=== PATIENT | male | born 1960 | race Caucasian/White ===

== ENCOUNTER 2023-05-08 14:12 | Outpatient (OUT) | payer BC, SELFPAY ==
[2023-05-08 14:46] LABS: Basophils Percent Auto 0.4 % (0.2-2.0); Eosinophils Absolute Auto 0.3 10^3/uL (0.0-0.7); Hematocrit 42.3 % (42.0-54.0); Hemoglobin 13.4 g/dL (14.0-18.0); Immature Granulocytes Abs Auto 0.03 10^3/uL (0.00-0.03); Immature Granulocytes Pct Auto 0.3 % (0.0-0.5); Lymphocytes Absolute Auto 2.1 10^3/uL (1.2-3.8); Lymphocytes Percent Auto 23.3 % (20.5-60.0); Mean Corpuscular HGB Conc 31.7 g/dL (29.9-35.2); Mean Corpuscular Hemoglobin 28.8 pg (25.9-34.0); Mean Corpuscular Volume 90.8 fL (80.0-94.0); Mean Platelet Volume 9.9 fL (9.5-13.5); Monocytes Percent Auto 10.7 % (1.7-12.0); Neutrophils Absolute Auto 5.7 10^3/uL (1.4-6.5); Neutrophils Percent Auto 62.3 % (43.0-75.0); Platelet Count 306 10^3/uL (150-450); Red Blood Count 4.66 10^6/uL (4.70-6.10); Red Cell Distribution Width 12.8 % (11.0-15.0); White Blood Count 9.2 10^3/uL (4.0-11.0)
[2023-05-08 15:41] LABS: Alanine Aminotransferase 59 U/L (16-63); Albumin Globulin Ratio 1.1; Albumin Level 3.5 g/dL (3.4-5.0); Alkaline Phosphatase 98 U/L (46-116); Anion Gap 12.5; Aspartate Amino Transferase 30 U/L (15-37); BUN Creatinine Ratio 16.7; Bilirubin Total 0.4 mg/dL (0.2-1.0); Calcium 9.2 mg/dL (8.5-10.1); Carbon Dioxide 28.8 mmol/L (21.0-32.0); Chloride 102 mmol/L (98-107); Estimated GFR (African America >60 (>=60); Estimated GFR (Non-African Ame >60 (>=60); Globulin 3.3 g/dL; Glucose 256 mg/dL (74-106); Potassium 4.3 mmol/L (3.5-5.1); Sodium 139 mmol/L (136-145); Total Protein 6.8 g/dL (6.4-8.2)
== END 2023-05-08 14:13 | disposition home or self-care (01) ==
PROVIDERS: PCP Family Medicine; Visit Provider Nurse Practitioner
DX: R06.09 Other forms of dyspnea (principal); R60.0 Localized edema
CPT/HCPCS: 36415; 80053; 83880; 85025

== ENCOUNTER 2023-05-15 08:32 | Outpatient (OUT) | payer BC, SELFPAY ==
--- OUTSIDE RECORDS SUMMARY | 2023-05-15 08:37 | XMS_ITS | CCD ---
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 Jeanine Burkett Primary Care Dr. Jeanine Arizmendi Referring DANUTA Grissom Admitting Unava Danuta Shaw Consulting Unavaila ble AMIR, Hasan Admitting Unavailable Yue GOODWINan Attending Unavailable Danuta Damon Referring Unavaila MD Danuta Moreno Consulting Unava ilDanuta Viveros Consulting Unavaila ble Gudimella, Lillie Attending Unavailable Gudimeljoyce, Lillie Attending Unavailable Gusummer, Lillie Attending Unavailable Herve, Lillie Attending Unavailable Herve, Lillie Attending Unavailable ELJOSEHAWChris EHAB Referring Unavailable ELJOSEHAWChris EHAB Admitting Unavailable ELTAHAWYSINCEREAB Attending Unavailable Vamsidimella, Lillie Admitting Unavailable Gudimella, Lillie Attending Unavailable ELTAHAWSINCERE PerezAB Admitting Unavailable AGAPITOHAWSINCERE PerezAB Attending Unavailable RADHA JETERALDOON Admitting Unavailable RADHA JETERALDOON Attending Unavailable BLACK MARTINEZ Admitting Unavailable BLACK MARTINEZ Attending Unavailable Danuta Damon Attending Unavaila Danuta Moreno Admitting Unavaila ble NONE, XXXX Referring Unavailable Danuta Damon Attending Unavaila Danuta Moreno Admitting Unavaila ble NONE, XXXX Referring Unavailable Danuta Damon Admitting Unavaila ble Danuta Damon Attending Unavaila ble Danuta Damon Referring Unavaila ble ELTAHAWY, EHAB Admitting Unavailable ELTAHAWY, EHAB Attending Unavailable EL[place]HAWY, EHAB Attending Unavailable ELTAHAWY, EHAB Attending Unavailable MAITEJOSE ALFREDO Attending Unavailable ELTAHAWY, EHAB Referring Unavailable Allergies Allergy Classification Reported Allergen(s) Allergy Type Date of Onset Reaction(s) Facility (1 source) 64461,00; Translations: [70975,00] Propensity to adverse reactions (disorder) 9 [facility] Repository Medications Current Medications Medication Drug Class(es) Dates Sig (Normalized) Sig (Original) 0.25 MG, 0.5 MG Dose 3 ML semaglutide 0.68 MG/ML Pen Injector [Ozempic] (5 sources) Start: 10-03-2022 inject 0.5 mg by subcutaneous injection every week Ozempic 2 mg/3 mL (0.25 mg or 0.5 mg dose) subcutaneous solution 0.5 mg, SubCutaneous, qWeek, # 4 EA, Refills(s) 2, Pharmacy: [facility], 173, cm, 07/22/22 15:45:00 EDT, Height/Length Dosing, 71.4, kg, 07/22/22 15:45:00 EDT, Weight Dosing Start Date: 10/03/22 Status: Ordered 3 ML semaglutide 1.34 MG/ML Pen Injector [Ozempic] (1 source) Start: 04-18-2023 inject 1 mg by subcutaneous injection every week Ozempic (1 mg dose) 4 mg/3 mL subcutaneous solution 1 mg, SubCutaneous, qWeek, # 4 EA, Refills(s) 0, Pharmacy: [facility], 173, cm, 04/18/23 11:00:00 EST, Height/Length Dosing, 76.2, kg, 04/18/23 11:00:00 EST, Weight Dosing Start Date: 04/18/23 Status: Ordered aspirin 81 mg chewable tablet (13 sources) Platelet Aggregation Inhibitor, Nonsteroidal Anti-inflammatory Drug Start: 09-09-2019 take 1 tablet by mouth once daily aspirin 81 mg Chew Tab 81 mg = 1 tab(s), Oral, Daily, # 90 tab(s), Refills(s) 3, Pharmacy: [facility], 172, cm, 09/09/19 15:03:00 EDT, Height/Length Measured, 72.6, kg, 09/09/19 15:03:00 EDT, Weight Measured Start Date: 09/09/19 Status: Ordered atorvastatin 80 mg oral tablet (13 sources) HMG-CoA Reductase Inhibitor Start: 05-30-2022 take 1 tablet by mouth once daily atorvastatin 80 mg Tab 80 mg = 1 tab(s), Oral, Daily, # 30 tab(s), Refills(s) 0 Start Date: 05/30/22 Status: Ordered Start: 02-02-2018 take 80 mg by mouth once daily atorvastatin 80 mg, Oral, Daily, Refills(s) 0, High cholesterol Start Date: 02/02/18 Status: Ordered busPIRone hydrochloride 10 mg oral tablet (1 source) Start: 04-18-2023 take 1 tablet by mouth twice daily busPIRone 10 mg Tab 10 mg = 1 tab(s), Oral, BID, # 90 tab(s), Refills(s) 0, Pharmacy: [facility], 173, cm, 04/18/23 11:00:00 EST, Height/Length Dosing, 76.2, kg, 04/18/23 11:00:00 EST, Weight Dosing Start Date: 04/18/23 Status: Ordered clopidogrel 75 mg oral tablet (13 sources) [id number] Platelet Inhibitor Start: 05-30-2022 take 1 tablet by mouth once daily clopidogrel 75 mg Tab 75 mg = 1 tab(s), Oral, Daily, # 30 tab(s), Refills(s) 0 Start Date: 05/30/22 Status: Ordered Start: 02-02-2018 take 75 mg by mouth once daily Plavix 75 mg, Oral, Daily, Refills(s) 0, Blood Thinner Start Date: 02/02/18 Status: Ordered ezetimibe 10 mg oral tablet (10 sources) Dietary Cholesterol Absorption Inhibitor Start: 05-30-2022 take 1 tablet by mouth once daily ezetimibe 10 mg Tab 10 mg = 1 tab(s), Oral, Daily, # 30 tab(s), Refills(s) 0 Start Date: 05/30/22 Status: Ordered handicap placard (13 sources) Start: 03-30-[address] handicap placard, See Instructions, 1 EA, 0, Use as directed duration 5 years, Supply Start Date: 03/30/19 Status: Ordered lisinopril 2.5 mg oral tablet (13 sources) Angiotensin Converting Enzyme Inhibitor Start: 10-27-2022 take 1 tablet by mouth once daily lisinopril 2.5 mg Tab 2.5 mg, Oral, Daily, # 90 tab(s), Refills(s) 3, Pharmacy: [facility], 173, cm, 07/22/22 15:45:00 EDT, Height/Length Dosing, 71.4, kg, 07/22/22 15:45:00 EDT, Weight Dosing Start Date: 10/27/22 Status: Ordered Start: 11-05-2021 take 1 tablet by avinash th once daily lisinopril 2.5 mg Tab 2.5 mg, Oral, Daily, # 90 tab(s), Refills(s) 3, Pharmacy: [facility], 172, cm, 09/07/21 16:47:00 EDT, Height/Length Dosing, 68, kg, 09/07/21 16:47:00 EDT, Weight Dosing Start Date: 11/05/21 Status: Ordered Start: 10-29-2020 take 1 tablet by avinash th once daily lisinopril 2.5 mg Tab 2.5 mg, Oral, Daily, # 90 tab(s), Refills(s) 3, Pharmacy: [facility], 172, cm, 09/23/20 15:33:00 EDT, Height/Length Dosing, 72, kg, 09/23/20 15:33:00 EDT, Weight Dosing Start Date: 10/29/20 Status: Ordered metFORMIN hydrochloride 1000 mg oral tablet (1 source) Biguanide Start: 09-23-2020 take 1 tablet by mouth twice daily metformin 1000 mg Tab 1,000 mg, Oral, BID, # 180 tab(s), Refills(s) 3, Pharmacy: [facility], 172, cm, 09/23/20 15:33:00 EDT, Height/Length Dosing, 72, kg, 09/23/20 15:33:00 EDT, Weight Dosing Start Date: 09/23/20 Status: Ordered 24 hr metFORMIN hydrochloride 1000 mg / SITagliptin 50 mg extended release oral tablet (13 sources) Biguanide, Dipeptidyl Peptidase 4 Inhibitor Start: 01-17-2023 take 1 tablet by mouth twice daily Janumet XR 50 mg-1000 mg oral tablet, extended release 1 tab(s), Oral, BID, 180 tab(s), Refill(s) 0, [facility], 173, cm, 07/22/22 15:45:00 EDT, Height/Length Dosing, 71.4, kg, 07/22/22 15:45:00 EDT, Weight Dosing Start Date: 01/17/23 Status: Ordered Start: 05-26-2022 take 1 tablet by [facility] twice daily Janumet XR 50 mg-1000 mg oral tablet, extended release 1 tab(s), Oral, BID, 180 tab(s), Refill(s) 3, [facility], 172, cm, 05/26/22 13:47:00 EST, Height/Length Dosing, 71.9, kg, 05/26/22 13:47:00 EST, Weight Dosing Start Date: 05/26/22 Status: Ordered Start: 11-18-2021 take 1 tablet by [facility] twice daily Janumet XR 50 mg-1000 mg oral tablet, extended release 1 tab(s), Oral, BID, 60 tab(s), Refill(s) 7, [facility], 172, cm, 09/07/21 16:47:00 EDT, Height/Length Dosing, 68, kg, 09/07/21 16:47:00 EDT, Weight Dosing Start Date: 11/18/21 Status: Ordered Start: 04-19-2021 take 1 tablet by avinash twice daily Janumet 50 mg/1000 mg oral tablet 1 tab(s), Oral, BID, 60 tab(s), Refill(s) 3, [facility], 172, cm, 04/19/21 17:24:00 EST, Height/Length Dosing, 68, kg, 04/19/21 17:24:00 EST, Weight Dosing Start Date: 04/19/21 Status: Ordered 24 hr metoprolol succinate 100 mg extended release oral tablet (13 sources) beta-Adrenergic Emili Start: 02-02-2018 take 1 tablet by mouth once daily metoprolol 100 mg ER Tab 100 mg = 1 tab(s), Oral, Daily, Refills(s) 0, High blood pressure Start Date: 02/02/18 Status: Ordered omeprazole 20 mg delayed release oral capsule (11 sources) Proton Pump Inhibitor Start: 02-16-2023 take 1 capsule by mouth once daily omeprazole 20 mg Cap-DR 20 mg = 1 cap(s), Oral, Daily, # 30 cap(s), Refills(s) 3, Pharmacy: [facility], 173, cm, 01/19/23 15:47:00 EDT, Height/Length Dosing, 72.3, kg, 01/19/23 15:47:00 EDT, Weight Dosing Start Date: 02/16/23 Status: Ordered Start: 09-27-2022 take 1 capsule by [facility] once daily omeprazole 20 mg Cap-DR 20 mg = 1 cap(s), Oral, Daily, # 30 cap(s), Refills(s) 3, Pharmacy: [facility], 173, cm, 07/22/22 15:45:00 EDT, Height/Length Dosing, 71.4, kg, 07/22/22 15:45:00 EDT, Weight Dosing Start Date: 09/27/22 Status: Ordered Start: 05-26-2022 take 1 capsule by [facility] once daily omeprazole 20 mg Cap-DR 20 mg = 1 cap(s), Oral, Daily, # 30 cap(s), Refills(s) 3, Pharmacy: [facility], 172, cm, 05/26/22 13:47:00 EST, Height/Length Dosing, 71.9, kg, 05/26/22 13:47:00 EST, Weight Dosing Start Date: 05/26/22 Status: Ordered polyethylene glycol 3350 188816 mg / potassium chloride 1480 mg / sodium bicarbonate 5720 mg / sodium chloride 84606 mg powder for oral solution (1 source) Osmotic Laxative Start: 01-21-2022 NuLYTELY Blair oral powder for reconstitution See Instructions, 1 EA, Refill(s) 0, Prior to colonoscopy., [facility], 172, cm, 01/21/22 12:49:00 EDT, Height/Length Dosing, 70.9, kg, 01/21/22 12:49:00 EDT, Weight Dosing Start Date: 01/21/22 Status: Ordered 0.25 mg, 0.5 mg dose 1.5 ml semaglutide 1.34 mg/ml pen injector (7 sources) Start: 05-26-2022 inject 0.25 mg by subcutaneous injection every week Ozempic 2 mg/1.5 mL (0.25 mg or 0.5 mg dose) subcutaneous solution 0.25 mg, SubCutaneous, qWeek, 12 EA, Refill(s) 3, [facility], 172, cm, 05/26/22 13:47:00 EST, Height/Length Dosing, 71.9, kg, 05/26/22 13:47:00 EST, Weight Dosing Start Date: 05/26/22 Status: Ordered Start: 10-21-2021 inject 0.25 mg by constantino bcutaneous injection every week Ozempic 2 mg/1.5 mL (0.25 mg or 0.5 mg dose) subcutaneous solution 0.25 mg, SubCutaneous, qWeek, 4 EA, Refill(s) 3, [facility], 172, cm, 09/07/21 16:47:00 EDT, Height/Length Dosing, 68, kg, 09/07/21 16:47:00 EDT, Weight Dosing Start Date: 10/21/21 Status: Ordered Start: 09-23-2020 take 1 tablet by mouth once da ramona Gutierrezs 14 mg oral tablet 14 mg = 1 tab(s), Oral, Daily, # 90 tab(s), Refills(s) 3, Pharmacy: [facility], 172, cm, 09/23/20 15:33:00 EDT, Height/Length Dosing, 72, kg, 09/23/20 15:33:00 EDT, Weight Dosing Start Date: 09/23/20 Status: Ordered Problems Active Problems Problem Classification Problem Date Documented Date Episodic/Chronic Acute myocardial infarction (1 source) Non-ST elevation (NSTEMI) myocardial infarction; Translations: [I21.4] Onset: 05-30-2022 Chronic Coronary atherosclerosis and other heart disease (20 sources) Atherosclerotic heart disease of [place] coronary artery with unstable angina pectoris; Translations: [Coronary arteriosclerosis] Onset: 11-02-2016 03-13-2019 Chronic Coronary atherosclerosis and other heart disease (2 sources) Presence of coronary angioplasty implant and graft; Translations: [PRESENCE OF CORONARY ANGIOPLASTY IMPLANT AND GRAFT] Onset: 11-02-2016 Episodic Diabetes mellitus with complications (18 sources) Hyperglycemia due to type 2 diabetes mellitus; Translations: [Peripheral circulatory disorder due to type 2 diabetes mellitus] Onset: 07-22-2022 09-23-2020 Chronic Diabetes mellitus without complication (20 sources) Type 2 diabetes mellitus without complications; Translations: [Type 2 diabetes mellitus] Onset: 11-02-2016 03-13-2019 Chronic Disorders of lipid metabolism (20 sources) Hyperlipidemia, unspecified; Translations: [Hypercholesterolemia] Onset: 11-02-2016 03-13-2019 Chronic Esophageal disorders (10 sources) Gastroesophageal reflux disease 05-30-2022 Chronic Essential hypertension (20 sources) Essential (primary) hypertension; Translations: [Hypertensive disorder] Onset: 11-02-2016 Resolved: 12-25-2009 03-13-2019 Chronic Other aftercare (2 sources) 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; Translations: [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] Onset: 11-02-2016 Episodic Other aftercare (1 source) Long-term current use of oral hypoglycemic medication; Translations: [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 drugs] Onset: 08-25-2021 Episodic Other and unspecified benign neoplasm (13 sources) History of polyp of colon; Translations: [Personal history of colonic polyps] Onset: 01-21-2022 Episodic Other lower respiratory disease (2 sources) Other forms of dyspnea; Translations: [Other forms of dyspnea] Onset: 05-08-2023 Episodic Other nervous system disorders (1 source) Tremor; Translations: [Tremor, unspecified] Onset: 04-18-2023 Episodic Other non-traumatic joint disorders (1 source) Hip pain 03-13-2019 Episodic Other non-traumatic joint disorders (1 source) Pain of left shoulder joint; Translations: [Pain in left shoulder] Onset: 05-26-2022 Episodic Other non-traumatic joint disorders (11 sources) Shoulder pain 05-26-2022 Episodic Other nutritional; endocrine; and metabolic disorders (1 source) Overweight in adulthood with body mass index of 25 or more but less than 30; Translations: [Body mass index (BMI) 25.0-25.9, adult] Onset: 04-18-2023 Episodic Other nutritional; endocrine; and metabolic disorders (2 sources) Overweight; Translations: [Overweight] Onset: 04-18-2023 Episodic Other skin disorders (1 source) Cyst of skin 12-30-2019 Episodic Residual codes; unclassified (1 source) Family history of malignant neoplasm of digestive organ; Translations: [Family history of malignant neoplasm of digestive organs] Onset: 01-21-2022 Episodic Residual codes; unclassified (12 sources) Family history of cancer of colon 01-21-2022 Episodic Residual codes; unclassified (3 sources) Body mass index 20-24 - normal; Translations: [Body mass index (BMI) 24.0-24.9, adult] Onset: 05-26-2022 Episodic Residual codes; unclassified (2 sources) Localized edema; Translations: [Localized edema] Onset: 05-08-2023 Episodic Screening and history of mental health and substance abuse codes (1 source) H/O: Disorder; Translations: [Personal history of nicotine dependence] Onset: 04-18-2023 Episodic Substance-related disorders (16 sources) Nicotine dependence, cigarettes, uncomplicated; Translations: [Smoker] Onset: 11-02-2016 03-13-2019 Chronic Unclassified (2 sources) Unknown / UNK(Unknown) Onset: 11-02-2016 Unclassified (1 source) Sebaceous cyst of skin 06-02-2021 Unclassified (4 sources) Patient encounter status 07-22-2022 Unclassified (1 source) Finding of hand region 04-18-2023 Past or Other Problems Problem Classification Problem Date Documented Da te Episodic/Chronic Unclassified (20 sources) Body mass index 20-24 - normal 09-23-2020 Unclassified (13 sources) Without (attribute) Resolved: 03-13-2019 03-13-2019 Results Test Name Value Interpretation Reference Range Facility 37on 05-08-2023 37 Take lasix/furosemid e 1 tablet daily with potassium 1 tablet for the next 2-3 days to remove water and then stop. *Continue heart healthy diet and low sodium diet. *Monitor daily weights, fluid restriction 1.5-2Liters/day, lab work to check kidney/renal function and electrolytes today and again on Monday or next Monday *Call office for weight gain of 2 pounds in 1 day or 5 pounds in 1 week, increased leg swelling, shortness of breath or shortness of breath at night and having to sleep sitting up taller/more pillows than normal or in recliner. [facility] Office Visiton 05-08-2023 Follow-up visit [id number] TonnyBoby Inocencia 1960 M Date Provider Department Center 05/08/2023 JOSE ALFREDO [place] [facility] Family History Problem Relation Age of Onset Heart attack Father Family Status - Relation Status Age at Father Level of Service:[address] [place] OFFICE/OUTPATIENT ESTABLISHED MOD MDM 30 MIN Normal [facility] Family Medicine Office/Clini c Noteon 04-18-2023 Family Medicine Office/Clinic Note Chief Complaint chronic follow up HPI Staff Pt here for 3 month follow up. T2DM Meds: Janumet 50/1000mg Ozempic BG at home: none Aspirin, Statin: ASA 81mg Atorvastatin 80mg Microalbumin:DUE Labs: Hgb A1C %: 8.6 % High (11/29/22 16:30:00) Eye exam: Foot exam: DUE HTN BP range:none Meds:Lisinopril 2.5mg Compliant, no side effects Diet:no Exercise:no No chest pain, palpitations, sob, headache, peripheral edema, lightheadedness. No hypotensive episodes Health Maintenance: Colonoscopy:03/11/22 PSA:05/22/21 Last Labs:02/16/23 History of Present Illness TONNYBOBY is a 63 Years White Male presenting to clinic today for chronic f/u concerned about weight gain after quitting smoking tremors of left arm from fingers to elbow x1 month occurs on right, but worse on left upper extremity occurs while sitting still and with movement no fhx of tremors getting angry really fast and really bad recently stopped smoking just before Thanksgiving 23, 1 month stopped cold turkey after weaning down to 6-7 cigs daily eating hard candy instead of smoking wheezing has stopped and hardly coughing anymore Review of Systems PHQ Score Initial Depression Screen Score: 0 SCORE Negative except as above Physical Exam Vitals & Measurements HR: 82(Peripheral) BP: 110/72 SpO2: 98% HT: 68 in HT: 173 cm WT: 76.2 kg WT: 167.64 lb BMI: 25.46 Gen: No acute distress, sitting comfortably in chair Cardio: RRR, no murmur/rubs/gallops Resp: CTAB, no wheezing/rales/rhonchi Psych: Pleasant, normal mood, normal affect Neuro: CN II-XII intact, normal gait Diabetic Foot Exam Decreased Monofilament Sensation Foot: Left - Normal, Right - Normal Bunions/Foot Deformity: Left - Normal, Right - Normal Abnormal Pulse Foot: Left - Normal, Right - Normal Skin Lesions Foot: Left - Normal, Right - Normal Foot Exam Result: Normal foot exam Assessment/Plan 1. Type 2 diabetes mellitus with hyperglycemia (E11.65: Type 2 diabetes mellitus with hyperglycemia) Hgb A1C %: 8.6 % High (11/29/22 16:30:00) discussed decreasing sugar intake ozempic increased to 1 mg weekly cont janumet XR 50-1000 mg BID foot exam completed today unable to give urine sample for urine microalbumin today Ordered: semaglutide, 1 mg, SubCutaneous, qWeek, # 4 EA, Refills(s) 0, Pharmacy: [id number], 173, cm, 04/18/23 11:00:00 EST, Height/Length Dosing, 76.2, kg, 04/18/23 11:00:00 EST, Weight Dosing Microalbumin Level Urine U Protein/Creat Ratio 2. Hypertension (I10: Essential (primary) hypertension) well controlled cont with lisinopril 2.5 mg daily 3. Irritability and anger (R45.4: Irritability and anger) buspirone 10 mg BID prn prescribed, will reassess in 1 month and discontinue if mood has improved Ordered: busPIRone, 10 mg = 1 tab(s), Oral, BID, # 90 tab(s), Refills(s) 0, Pharmacy: [facility], 173, cm, 04/18/23 11:00:00 EST, Height/Length Dosing, 76.2, kg, 04/18/23 11:00:00 EST, Weight Dosing 4. BMI 25.0-25.9,adult (Z68.25: Body mass index [BMI] 25.0-25.9, adult) The standard range for ages 18 and older is >=18.5 and < 25 kg/m2. Your BMI today was above this range, this falls in the overweight to obese category and there are medical benefits to weight loss. We can offer counselling, referral, and/or medical support in addressing this problem. Your BMI and weight management will be followed at subsequent visits. 5. Former smoker (Z87.891: Personal history of nicotine dependence) stable 6. Overweight (E66.3: Overweight) increase whole foods, decrease processed foods exercise at least 2.5 hours weekly 7. Tremor of both hands (R25.1: Tremor, unspecified) will monitor having intentional and resting tremors of BUEs will consider further evaluation if continues Follow-up With When Contact Information Lillie Edgar MD, FAM, MED In [address] [place] [phone] Business (1) Additional Instructions: Problem List/Past Medical History Ongoing CAD (coronary artery disease) Chronic GERD Coronary artery disease Family history of colon cancer History of colon polyps Hx of heart artery stent Hypercholesteremia Hyperlipidemia Hypertension Left shoulder pain Overweight Tremor of both hands Type 2 diabetes mellitus with hyperglycemia Type 2 diabetes mellitus with vascular disease Historical Body mass index (BMI) 24.0-24.9, adult Body mass index [BMI] 24.0-24.9, adult HTN - Hypertension HI Procedure/Surgical History Colonoscopy (03/11/2022), cardiac stent (11/24/2007), Colonoscopy, PCI (percutaneous coronary intervention) of RCA (right coronary artery). Medications aspirin 81 mg Chew Tab, 81 mg= 1 tab(s), Oral, Daily, 3 refills atorvastatin 80 mg Tab, 80 mg= 1 tab(s), Oral, Daily busPIRone 10 mg Tab, 10 mg= 1 tab(s), Oral, BID clopidogrel 75 mg Tab, 75 mg= 1 tab(s), Oral, Daily ezetimibe 10 mg Tab, 10 mg= 1 tab(s), Or (more content not included)... Normal [facility] Comment on above: Result Comment: Elec tronically Signed By: Lillie Edgar MD\.br\Date and Time Signed: 04/18/23 11:31 EST BMPon 02-16-2023 Anion gap [Moles/Vol] 14 mmol/L Normal 6-16 [facility] Comment on above: Performed By: #### 2 [id number], [id number], [id number] ####[facility] [address] [place] [address] Calcium [Mass/Vol] 9.9 mg/dL Normal 8.9-11.1 [facility] Comment on above: Performed By: #### 2 [id number], [id number] ####[facility] [address] [place] [address] Chloride [Moles/Vol] 97 mmol/L Low 101-111 [facility] Comment on above: Performed By: #### 2 [id number], [id number] ####[facility] [address] [place] [address] CO2 [Moles/Vol] 28 mmol/L Normal 21-31 [facility] Comment on above: Performed By: #### 2 [id number], [id number], [id number], [id number] ####[facility] [address] [place] [address] Creatinine [Mass/Vol] 1.2 mg/dL Normal 0.5-1.3 [facility] Comment on above: Performed By: #### 2 [id number], [id number], [id number] ####[facility] [address] [place] [address] Glucose [Mass/Vol] 174 mg/dL Normal 55-199 [facility] Comment on above: Result Comment: If t his glucose result represents a fasting glucose, interpretation should refer to the following reference range: 55-99 mg/dL Performed By: #### 2 [id number], [id number], [id number], [id number] ####[facility] [address] [place] [address] Potassium [Moles/Vol] 4.9 mmol/L Normal 3.5-5.3 [facility] Comment on above: Performed By: #### 2 [id number], [id number], [id number], [id number], [id number] ####[facility] [address] [place] [address] Sodium [Moles/Vol] 134 mmol/L Low 135-145 [facility] Comment on above: Performed By: #### 2 [id number], [id number], [id number], [id number], [id number] ####[facility] [facility] [address] [place] [address] Urea nitrogen [Mass/Vol] 24 mg/dL High 5-21 [facility] Comment on above: Performed By: #### 2 609050, 4878261, 7879235, 70359604, 0280280 ####[facility] [address] [place] [address] Urea nitrogen/Creatinine [Mass ratio] 20 No Units Normal 10-20 [facility] Comment on above: Performed By: #### 2 662218, 0333225, 1130597, 47834258, 8093048 ####[facility] [address] [place] [address] CBC w/Indiceson 02-16-2023 Erythrocyte distribution width (RBC) [Ratio] 14.2 % Normal 10.9-14.2 [facility] Comment on above: Performed By: #### 2 746603, 8702090, 3182041, 15999089, 8094396 ####[facility] [address] [place] [address] Hematocrit (Bld) [Volume fraction] 44.3 % Normal 37.7-49.0 [facility] Comment on above: Performed By: #### 2 926482, 4977590, 2482597, 27190140, 0388220 ####[facility] [address] [place] [address] Hemoglobin (Bld) [Mass/Vol] 14.9 g/dL Normal 13.5-17.5 [facility] Comment on above: Performed By: #### 2 259121, 5866980, 5626614, 54885236, 1472719 ####[address] [place] [address] MCH (RBC) [Entitic mass] 29.2 pg Normal 27.0-34.0 [facility] Comment on above: Performed By: #### 2 982236, 0180919, 7807529, 17386336, 5705389 ####[address] [address] MCHC (RBC) [Mass/Vol] 33.5 g/dL Normal 31.4-36.0 [facility] Comment on above: Performed By: #### 2 178795, 9824316, 0649023, 24328394, 8665192 ####[address] [address] MCV (RBC) [Entitic vol] 87.2 fL Normal 80.0-100.0 [facility] Comment on above: Performed By: #### 2 808253, 5042547, 1714189, 15817093, 0649115 ####[address] [address] Platelet mean volume (Bld) [Entitic vol] 8.5 fL Normal 6.4-10.8 [facility] Comment on above: Performed By: #### 2 398829, 1587953, 2664579, 52979762, 0109989 ####[address] [address] Platelets (Bld) [#/Vol] 281.0 E9/L Normal 150.0-500.0 [facility] Comment on above: Performed By: #### 2 969952, 7296625, 7882162, 63170135, 6293973 ####[facility] [address] [place] [address] RBC (Bld) [#/Vol] 5.1 E12/L Normal 4.3-5.9 [facility] Comment on above: Performed By: #### 2 291878, 8018239, 4466095, 87257805, 0991970 ####[facility] [address] [place] [address] WBC corrected for nucl RBC Auto (Bld) [#/Vol] 11.0 E9/L Normal 4.0-11.0 [facility] Comment on above: Performed By: #### 2 935066, 3451387, 2964697, 33848183, 4689899 ####[facility] [address] [place] [address] CHEMISTRYOrdered By: SYSTEM SYSTEM on 02-16-2023 Anion gap [Moles/Vol] 14 mmol/L Normal 6 - 16 mEq/L [facility] Remisol Calcium [Mass/Vol] 9.9 mg/dL Normal 8.9 - 11. 1 mg/dL [facility] Remisol Chloride [Moles/Vol] 97 mmol/L Low 101 - 111 mmol/L [facility] Remisol CO2 [Moles/Vol] 28 mmol/L Normal 21 - 31 mmol/L [facility] Remisol Creatinine [Mass/Vol] 1.2 mg/dL Normal 0.5 - 1.3 mg/dL [facility] Remisol GFR/1.73 sq M.predicted among non-blacks MDRD (S/P/Bld) [Vol rate/Area] 69 mL/min/1.73 m2 Normal >=59mL/min/1.7 3 m2 [facility] Chem S Comment on above: Interpretive Data: C hronic kidney disease could be indicated at eGFR's of less than 60 mL/min/1.73m2. Kidney failure is indicated at less than 15 mL/min/1.73m2. Glucose [Mass/Vol] 174 mg/dL Normal 55 - 199 mg/dL [facility] Comment on above: Interpretive Data: I f this glucose result represents a fasting glucose, interpretation should refer to the following reference range: 55-99 mg/dL Magnesium [Mass/Vol] 1.8 mg/dL Normal 1.3 - 2.4 mg/dL [facility] Remisol Potassium [Moles/Vol] 4.9 mmol/L Normal 3.5 - 5.3 mmol/L [facility] Remisol Sodium [Moles/Vol] 134 mmol/L Low 135 - 145 mmol/L [facility] Remisol Urea nitrogen [Mass/Vol] 24 mg/dL High 5 - 21 mg/dL [facility] Remisol Urea nitrogen/Creatinine [Mass ratio] 20 mg/mg Normal 10 - 20 [facility] Remisol COAGULATIONOrdered By: Eileen Howard on 02-16-2023 INR Coag (PPP) [Relative time] 0.9 {INR} Invalid Interpretation Code [facility] Auto Coag Comment on above: Interpretive Data: I NR results are specifically intended to assess patients stabilized on long-term Anticoagulation therapy suggested INR s Less Intensive Anticoagulation 2.0 3.0 Conventional Range 3.0 4.5 PT Coag (PPP) [Time] 10.2 s Normal 9.4 - 12.5 second(s) [facility] Auto Coag Comment on above: Interpretive Data: 1 5 days - 4 weeks 1 - 5 months 6 -11 months 1 5 years 6 10 years 11 -17 years Mean: 11.2 (9.5 12.6) Mean: 11.0 (9.7 12.8) Mean: 11.0 (9.8 13.0) Mean: 11.3 (9.9 13.4) Mean: 11.7 (10.0 14.6) Mean: 11.8 (10.0 - 14.1) Pediatric Reference ranges were obtained from a study by Tye Estrada et al. prepared from 1437 samples obtained at 7 different centers using the same coagulation reagent and instrumentation as [facility]. Currently there are no coagulation studies available worldwide for children to 14 days, and no normal ranges. Consent for Treatmenton 01-29 Consent for Treatment [id number] Normal [facility] HEMATOLOGYOrdered By: Emily Kelly on 02-16-2023 Erythrocyte distribution width (RBC) [Ratio] 14.2 % Normal 10.9 - 14.2 % [facility] HemeAutoSS Hematocrit (Bld) [Volume fraction] 44.3 % Normal 37.7 - 49.0 % [facility] HemeAutoSS Hemoglobin (Bld) [Mass/Vol] 14.9 g/dL Normal 13.5 - 17.5 gm/dL [facility] HemeAutoSS MCH (RBC) [Entitic mass] 29.2 pg Normal 27.0 - 34.0 pg [facility] HemeAutoSS MCHC (RBC) [Mass/Vol] 33.5 g/dL Normal 31.4 - 36.0 gm/dL [facility] HemeAutoSS MCV (RBC) [Entitic vol] 87.2 fL Normal 80.0 - 100.0 fL [facility] HemeAutoSS Platelet mean volume (Bld) [Entitic vol] 8.5 fL Normal 6.4 - 10.8 fL [facility] HemeAutoSS Platelets (Bld) [#/Vol] 281.0 E9/L Normal 150.0 - 500.0 E9/L [facility] HemeAutoSS RBC (Bld) [#/Vol] 5.1 E12/L Normal 4.3 - 5.9 E12/L [facility] HemeAutoSS WBC corrected for nucl RBC Auto (Bld) [#/Vol] 11.0 E9/L Normal 4.0 - 11.0 E9/L [facility] HemeAutoSS Magnesiumon 02-16-2023 Magnesium [Mass/Vol] 1.8 mg/dL Normal 1.3-2.4 [facility] Comment on above: Performed By: #### 2 964323, 2287276, 9525798, 96703893, 2493335 ####[facility] [address] [place] [address] Office Visiton 02-16-2023 Follow-up visit [id number] Boby Lancaster 1960 M Date Provider Department Center 02/16/2023 Aruna-MAXINE GUZMÁN CARD [facility] No family history on file Level of Service:[address] [place] OFFICE/OUTPATIENT ESTABLISHED LOW MDM 20-29 MIN Normal [facility] PTon 02-16-2023 INR Coag (PPP) [Relative time] 0.9 {INR} Invalid Interpretation Code [facility] Comment on above: Result Comment: INR results are specifically intended to assess patients stabilized on long-term Anticoagulation therapy suggested INR?s ?Less Intensive Anticoagulation? 2.0 ? 3.0 Conventional Range 3.0 ? 4.5 Performed By: #### 2 626913, 8538942, 6060991, 85734571, 5518966 ####[facility] [address] [place] [address] PT Coag (PPP) [Time] 10.2 second(s) Normal 9.4-12.5 [facility] Comment on above: Result Comment: 15 d ays - 4 weeks 1 - 5 months 6 -11 months 1 ? 5 years 6 ? 10 years 11 -17 years Mean: 11.2 (9.5 ? 12.6) Mean: 11.0 (9.7 ? 12.8) Mean: 11.0 (9.8 ? 13.0) Mean: 11.3 (9.9 ? 13.4) Mean: 11.7 (10.0 ? 14.6) Mean: 11.8 (10.0 - 14.1) Pediatric Reference ranges were obtained from a study by tamara Sousa al. prepared from 1437 samples obtained at 7 different centers using the same coagulation reagent and instrumentation as [facility]. Currently there are no coagulation studies available worldwide for children to 14 days, and no normal ranges. Performed By: #### 2 380505, 8078698, 1997006, 91990271, 6485426 ####[facility] [address] [place] [address] Physician Orderon 02-16-2023 Physician Order [id number] Normal [facility] eGFRon 02-16-2023 GFR/1.73 sq M.predicted among non-blacks MDRD (S/P/Bld) [Vol rate/Area] 69 mL/min/1.73 m2 Normal >=59 [facility] Comment on above: Order Comment: Order added by Discern Expert. Result Comment: Composition Instructor noel kidney disease could be indicated at eGFR's of less than 60 mL/min/1.73m2. Kidney failure is indicated at less than 15 mL/min/1.73m2. Performed By: #### 2 277319, 0584636, 3117004, 23367294, 0713509 ####[facility] [id number] Family Medicine Office/Clini c Noteon 01-19-2023 Family Medicine Office/Clinic Note Chief Complaint chronic follow up HPI Staff Pt here for 6 month follow up. T2DM Meds: Janumet 50/1000mg, Ozempic BG at home: none Aspirin, Statin: ASA 81mg, Atorvastatin 80mg Microalbumin: DUE Labs: Hgb A1C %: 8.6 % High (11/29/22 16:30:00) Eye exam: Foot exam: DUE HTN BP range:none Meds:Lisinopril 2.5mg Compliant, no side effects Diet:no Exercise:no No chest pain, palpitations, sob, headache, peripheral edema, lightheadedness. 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 this was removed through [facility] in [place], [place] was on ozempic 0.25 mg for a long period of time just changed to 0.5 mg this week no side effects noted Review of Systems PHQ Score Initial Depression Screen Score: 0 Negative except as above Physical Exam Vitals & Measurements HR: 73(Peripheral) BP: 96/60 SpO2: 92% HT: 68 in HT: 173 cm WT: 72.3 kg WT: 159.06 lb BMI: 24.16 Gen: No acute distress, sitting comfortably in chair Cardio: RRR, no murmur/rubs/gallops Resp: CTAB, no wheezing/rales/rhonchi Psych: Pleasant, normal mood, normal affect Neuro: CN II-XII intact, normal gait Foot exam completed today Diabetic Foot Exam Decreased Monofilament Sensation Foot: Left - Normal, Right - Normal Bunions/Foot Deformity: Left - Normal, Right - Normal Abnormal Pulse Foot: Left - Normal, Right - Normal Skin Lesions Foot: Left - Normal, Right - Normal Assessment/Plan 1. Type 2 diabetes mellitus with hyperglycemia (E11.65: Type 2 diabetes mellitus with hyperglycemia) Hgb A1C %: 8.6 % High (11/29/22 16:30:00) Unable to give a urine sample today Foot exam completed today Urine microalbumin ordered today Continue Janumet 50 mg - 1000 mg twice daily and Ozempic 0.5 mg Increase Ozempic to 1 mg in 1 month repeat A1c at next appt Ordered: Microalbumin Level Urine U Protein/Creat Ratio 2. Type 2 diabetes mellitus with vascular disease (E11.59: Type 2 diabetes mellitus with other circulatory complications) Hgb A1C %: 8.6 % High (11/29/22 16:30:00) Unable to give a urine sample today Foot exam completed today Urine microalbumin ordered today Continue Janumet 50 mg - 1000 mg twice daily and Ozempic 0.5 mg Increase Ozempic to 1 mg in 1 month repeat A1c at next appt Ordered: Microalbumin Level Urine U Protein/Creat Ratio 3. Hypertension (I10: Essential (primary) hypertension) Well-controlled Continue lisinopril 2.5 mg 4. Smoker (F17.200: Nicotine dependence, unspecified, uncomplicated) Declines quitting at this time 5. BMI 24.0-24.9, adult (Z68.24: Body mass index [BMI] 24.0-24.9, adult) Normal BMI Follow-up With When Contact Information Lillie Edgar MD, FAM, MED In [address] [place] [phone] Business (1) Additional Instructions: Problem List/Past Medical History Ongoing CAD (coronary artery disease) Chronic GERD Coronary artery disease Diabetes Family history of colon cancer History of colon polyps Hx of heart artery stent Hypercholesteremia Hyperlipidemia Hypertension Left shoulder pain Smoker Type 2 diabetes mellitus with hyperglycemia Type 2 diabetes mellitus with vascular disease Historical Body mass index (BMI) 24.0-24.9, adult Body mass index [BMI] 24.0-24.9, adult HTN - Hypertension HI Procedure/Surgical History Colonoscopy (03/11/2022), cardiac stent (11/24/2007), Colonoscopy, PCI (percutaneous coronary intervention) of RCA (right coronary artery). Medications aspirin 81 mg Chew Tab, 81 mg= 1 tab(s), Oral, Daily, 3 refills atorvastatin 80 mg Tab, 80 mg= 1 tab(s), Oral, Daily clopidogrel 75 mg Tab, 75 mg= 1 tab(s), Oral, Daily ezetimibe 10 mg Tab, 10 mg= 1 tab(s), Oral, Daily handicap placard, See Instructions Janumet XR 50 mg-1000 mg oral tablet, extended release, 1 tab(s), Oral, BID lisinopril 2.5 mg Tab, 2.5 mg, Oral, Daily, 3 refills metoprolol 100 mg ER Tab, 100 mg= 1 tab(s), Oral, Daily omeprazole 20 mg Cap-DR, 20 mg= 1 cap(s), Oral, Daily, 3 refills Ozempic 2 mg/3 mL (0.25 mg or 0.5 mg dose) subcutaneous solution, 0.5 mg, SubCutaneous, qWeek, 2 refills Allergies No Known Allergies Social History Alcohol - No Risk, 02/03/2014 Substance Abuse - No Risk, 02/03/2014 Tobacco - High Risk, 02/03/2014 10 or more cigarettes (1/2 pack or more)/day in last 30 days Tobacco Use:. Never Smokeless Tobacco Use:. Cigarettes, Ready to change: No. Household tobacco concerns: Yes. Yes, 01/19/2023 Family History Family history is negative Immunizations Vaccine Date Status Comments influenza virus vaccine, inactivated - Not Given Postpone due to refusal influenza virus vaccine, inactivated 02/07/2022 Recorded SARS-CoV-2 (COVID-19) mRNAMUL.ORD!d0 (more content not included)... Normal [facility] Comment on above: Result Comment: Elec tronically Signed By: Lillie Edgar MD\.br\Date and Time Signed: 01/19/23 16:05 EDT Auto Diffon 12-31-2022 Basophils/100 WBC (Bld) 1.0 % Normal 0.0-2.0 [facility] Comment on above: Order Comment: Order Added by Discern Expert. Performed By: #### 2 960385, 3038076, 3741637, 3380109, 0076675, 5153350, 35853530 ####[facility] [address] [place] [address] Basophils/Leukocyte s Auto (Bld) [Pure # fraction] 0.1 E9/L Normal 0.0-0.2 [facility] Comment on above: Order Comment: Order Added by Discern Expert. Performed By: #### 2 112121, 9184495, 2284092, 1132906, 3666271, 1790844, 72240708 ####[address] [place] [address] Eosinophils/100 WBC (Bld) 3.5 % Normal 0.0-8.0 [facility] Comment on above: Order Comment: Order Added by Discern Expert. Performed By: #### 2 103840, 7916570, 1566261, 7702174, 3191624, 0023303, 09871897 ####[address] [place] [address] Eosinophils/Leukocy neisha Auto (Bld) [Pure # fraction] 0.2 E9/L Normal 0.0-0.5 [facility] Comment on above: Order Comment: Order Added by Yescia Expert. Performed By: #### 2 088524, 1633307, 3899868, 0641526, 2698494, 4213166, 97263417 ####[address] [address] Lymphocytes/100 WBC (Bld) 26.0 % Normal 14.0-50.0 [facility] Comment on above: Order Comment: Order Added by Yesica Expert. Performed By: #### 2 444222, 7778026, 4404622, 5369735, 5675851, 1097482, 35190697 ####[address] [address] Lymphocytes/Leukocy neihsa Auto (Bld) [Pure # fraction] 1.8 E9/L Normal 1.0-4.0 [facility] Comment on above: Order Comment: Order Added by Yesica Expert. Performed By: #### 2 385799, 5614073, 7732989, 0726620, 7662080, 7953983, 80102033 ####[address] [place] [address] Monocytes/100 WBC (Bld) 11.7 % Normal 4.0-14.0 [facility] Comment on above: Order Comment: Order Added by Discern Expert. Performed By: #### 2 581584, 3370614, 9193415, 3542822, 2254172, 9076652, 09976793 ####[facility] [address] [place] [address] Monocytes/Leukocyte s Auto (Bld) [Pure # fraction] 0.8 E9/L Normal 0.2-1.0 [facility] Comment on above: Order Comment: Order Added by Discern Expert. Performed By: #### 2 565810, 2961730, 0896635, 7112513, 4706653, 0798273, 82190807 ####[address] [place] [address] Neutrophils/100 WBC (Bld) 57.8 % Normal 36.0-75.0 [facility] Comment on above: Order Comment: Order Added by Discern Expert. Performed By: #### 2 934202, 2816616, 6152588, 1823388, 8452466, 2381283, 91191813 ####[facility] [address] [place] [address] Neutrophils/Leukocy neisha Auto (Bld) [Pure # fraction] 4.1 E9/L Normal 2.0-7.5 [facility] Comment on above: Order Comment: Order Added by Discern Expert. Performed By: #### 2 556608, 9622604, 7934520, 7106238, 5658588, 9085021, 83466683 ####[facility] [address] [place] [address] BMPon 12-31-2022 Anion gap [Moles/Vol] 12 mmol/L Normal 6-16 [facility] Comment on above: Performed By: #### 2 316470, 6184789, 3533381, 8924046, 1504873, 8906502, 00311479 ####[facility] [address] [place] [address] Calcium [Mass/Vol] 10.0 mg/dL Normal 8.9-11.1 [facility] Comment on above: Performed By: #### 2 296208, 2380686, 0132354, 5733133, 7451507, 6616481, 34299043 ####[facility] [address] [place] [address] Chloride [Moles/Vol] 104 mmol/L Normal 101-111 [facility] Comment on above: Performed By: #### 2 416301, 1474231, 1298937, 8757323, 2049283, 3426402, 27270777 ####[facility] [address] [place] [address] CO2 [Moles/Vol] 29 mmol/L Normal 21-31 [facility] Comment on above: Performed By: #### 2 958303, 5802450, 6306595, 4954586, 8368468, 2534150, 90581949 ####[facility] [address] [place] [address] Creatinine [Mass/Vol] 1.3 mg/dL Normal 0.5-1.3 [facility] Comment on above: Performed By: #### 2 790341, 7054509, 5818772, 7487329, 0664281, 2330719, 80743779 ####[facility] [address] [place] [address] Glucose [Mass/Vol] 161 mg/dL Normal 55-199 [facility] Comment on above: Result Comment: If t his glucose result represents a fasting glucose, interpretation should refer to the following reference range: 55-99 mg/dL Performed By: #### 2 679713, 6115332, 4555443, 1966909, 5427991, 7899292, 79830714 ####[facility] [address] [place] [address] Potassium [Moles/Vol] 5.8 mmol/L High 3.5-5.3 [facility] Comment on above: Performed By: #### 2 288017, 7789372, 7365501, 5835691, 4548969, 5483571, 78872592 ####[facility] [address] [place] [address] Sodium [Moles/Vol] 139 mmol/L Normal 135-145 [facility] Comment on above: Performed By: #### 2 726172, 3291730, 2827407, 8945379, 7826289, 0587106, 80460140 ####[facility] [address] [place] [address] Urea nitrogen [Mass/Vol] 23 mg/dL High 5-21 [facility] Comment on above: Performed By: #### 2 554363, 2619769, 0940440, 4855980, 9329078, 8119554, 77560557 ####[facility] [address] [place] [address] Urea nitrogen/Creatinine [Mass ratio] 18 No Units Normal 10-20 [facility] Comment on above: Performed By: #### 2 461459, 7128166, 3076529, 3844988, 0364810, 5801019, 41535137 ####[facility] [address] [place] [address] CBC w/ Auto Diffon 3 Erythrocyte distribution width (RBC) [Ratio] 14.6 % High 10.9-14.2 [facility] Comment on above: Performed By: #### 2 833776, 5792198, 6146559, 6210487, 2387831, 6841287, 14341680 ####[facility] [address] [place] [address] Hematocrit (Bld) [Volume fraction] 43.3 % Normal 37.7-49.0 [facility] Comment on above: Performed By: #### 2 868132, 5479485, 0852802, 9542414, 4387590, 6193407, 62101608 ####[facility] [address] [place] [address] Hemoglobin (Bld) [Mass/Vol] 14.5 g/dL Normal 13.5-17.5 [facility] Comment on above: Performed By: #### 2 796465, 2782898, 2517931, 6180180, 5480868, 1580500, 69254801 ####[facility] [address] [place] [address] MCH (RBC) [Entitic mass] 29.1 pg Normal 27.0-34.0 [facility] Comment on above: Performed By: #### 2 564604, 2801710, 5421874, 8736223, 6494314, 3186767, 03020751 ####[address] [place] [address] MCHC (RBC) [Mass/Vol] 33.4 g/dL Normal 31.4-36.0 [facility] Comment on above: Performed By: #### 2 344193, 4906442, 9392311, 3630546, 1704620, 6486736, 49096705 ####[address] [address] MCV (RBC) [Entitic vol] 87.2 fL Normal 80.0-100.0 [facility] Comment on above: Performed By: #### 2 449889, 5874214, 1530880, 5100723, 8783509, 9178097, 28331794 ####[address] [address] Platelet mean volume (Bld) [Entitic vol] 8.2 fL Normal 6.4-10.8 [facility] Comment on above: Performed By: #### 2 736865, 0169305, 7176740, 8645152, 6202466, 5492374, 36856334 ####[address] [place] [address] Platelets (Bld) [#/Vol] 297.0 E9/L Normal 150.0-500.0 [facility] Comment on above: Performed By: #### 2 893057, 6109583, 1669027, 7369883, 4888191, 2619490, 27872492 ####[address] [address] RBC (Bld) [#/Vol] 5.0 E12/L Normal 4.3-5.9 [facility] Comment on above: Performed By: #### 2 821214, 0825887, 8265638, 8286935, 0444708, 5080856, 07846650 ####[facility] [address] [place] [address] WBC corrected for nucl RBC Auto (Bld) [#/Vol] 7.0 E9/L Normal 4.0-11.0 [facility] Comment on above: Performed By: #### 2 668947, 4558731, 5485070, 0364818, 7643798, 6988598, 03785151 ####[facility] [address] [place] [address] Consent for Treatmenton Consent for Treatment [id number] Normal [facility] Hep Func Panelon 12-31-2022 Bilirubin.indirect [Mass or moles/Vol] UTC Abnormal 0.1-0.9 [facility] Comment on above: Result Comment: Resu lt verified by Discern Rule. Performed result UTC (Unable to Calculate) was sent as an Alpha code due the inability to calculate a valid numeric value. Performed By: #### 2 148208, 3341602, 0223985, 5392563, 0028354, 9485655, 01435569 ####[facility] [address] [place] [address] Albumin [Mass/Vol] 4.2 g/dL Normal 3.3-5.0 [facility] Comment on above: Performed By: #### 2 211429, 5723645, 8120022, 8821660, 7783296, 7976382, 78766903 ####[facility] [address] [place] [address] Albumin/Globulin (S) [Mass conc ratio] 1.4 Normal 1.1-2.2 [facility] Comment on above: Performed By: #### 2 020350, 1899225, 5236463, 5382944, 5371870, 7730272, 35574711 ####[facility] [address] [place] [address] ALP [Catalytic activity/Vol] 81 Int._Unit/L Normal 21-98 [facility] Comment on above: Performed By: #### 2 389508, 4333203, 1836551, 5263020, 6198474, 2482594, 75051431 ####[address] [place] [address] ALT No additional P-5'-P [Catalytic activity/Vol] 20 Int._Unit/L Normal 6-46 [facility] Comment on above: Performed By: #### 2 239403, 8996376, 5405079, 2032903, 6529443, 8420880, 14407714 ####[address] [address] AST [Catalytic activity/Vol] 20 Int._Unit/L Normal 5-43 [facility] Comment on above: Performed By: #### 2 952428, 7996980, 9170969, 6107300, 5457031, 9013307, 81089832 ####[address] [address] Bilirubin [Mass/Vol] 0.6 mg/dL Normal 0.0-1.1 [facility] Comment on above: Performed By: #### 2 191321, 2967301, 9808814, 5700479, 6489273, 9510310, 49608381 ####[address] [place] [address] Globulin (S) [Mass/Vol] 3.1 g/dL Normal 1.4-4.0 [facility] Comment on above: Performed By: #### 2 377590, 1880641, 5653659, 7764335, 9998551, 5605159, 61033632 ####[address] [place] [address] Protein [Mass/Vol] 7.3 g/dL Normal 6.0-7.8 [facility] Comment on above: Performed By: #### 2 412402, 1044580, 7653292, 1857916, 2863103, 8109407, 50884148 ####[facility] [address] [place] [address] Bilirubin.direct [Mass/Vol] mg/dL Normal 0.1-0.4 [facility] Comment on above: Performed By: #### 2 755836, 0830953, 5956739, 7318170, 3790760, 9620305, 32142054 ####[facility] [address] [place] [address] Magnesiumon 12-31-2022 Magnesium [Mass/Vol] 1.9 mg/dL Normal 1.3-2.4 [facility] Comment on above: Performed By: #### 2 461845, 6095670, 0200258, 1647271, 8918300, 3023304, 99045563 ####[facility] [address] [place] [address] PTon 12-31-2022 INR Coag (PPP) [Relative time] 0.9 {INR} Invalid Interpretation Code [facility] Comment on above: Result Comment: INR results are specifically intended to assess patients stabilized on long-term Anticoagulation therapy suggested INR?s ?Less Intensive Anticoagulation? 2.0 ? 3.0 Conventional Range 3.0 ? 4.5 Performed By: #### 2 570880, 9018445, 3908180, 6531485, 0009717, 0577076, 44320352 ####[facility] [address] [place] [address] PT Coag (PPP) [Time] 10.2 second(s) Normal 9.4-12.5 [facility] Comment on above: Result Comment: 15 d ays - 4 weeks 1 - 5 months 6 -11 months 1- 5 years 6-10 years 11 -17 years Mean: 11.2 (9.5-12.6) Mean: 11.0 (9.7-12.8) Mean: 11.0 (9.8-13.0) Mean: 11.3 (9.9-13.4) Mean: 11.7 (10.0-14.6) Mean: 11.8 (10.0 - 14.1) Pediatric Reference ranges were obtained from a study by tamara Sousa al. prepared from 1437 samples obtained at 7 different centers using the same coagulation reagent and instrumentation as [facility]. Currently there are no coagulation studies available worldwide for children to 14 days, and no normal ranges. Performed By: #### 2 658203, 8871491, 8767011, 2015550, 6871979, 7367279, 36323536 ####[facility] [address] [place] [address] Physician Orderon 12-31-2022 Physician Order [id number]#[id number]:12 7 Normal [facility] eGFRon 12-31-2022 GFR/1.73 sq M.predicted among non-blacks MDRD (S/P/Bld) [Vol rate/Area] 63 mL/min/1.73 m2 Normal >=59 [facility] Comment on above: Order Comment: Order added by Discern Expert. Result Comment: Composition Instructor noel kidney disease could be indicated at eGFR's of less than 60 mL/min/1.73m2. Kidney failure is indicated at less than 15 mL/min/1.73m2. Performed By: #### 2 008380, 0375244, 4524611, 7935301, 6436205, 3315757, 54870278 ####[facility] [address] [place] [address] Reminderson 12-22-2022 Reminders - From: Kierra Pa To: - Clinical; Sent: 07/22/2022 10:12:20 EDT Show up: 12/22/2022 10:12:00 EDT Subject: 6 month f/u Due Date/Time: 01/22/2023 10:12:00 EDT Reminder/Recall 6 month f/u w/ Dr. Damon From: Bhavin Resendiz ([facility] - Clinical) To: HV - Clinical; Sent: 12/22/2022 10:18:37 EDT Show up: 12/22/2022 10:17:00 EDT Subject: RE: 6 month f/u scheduled 02/01 Normal [facility] ANESon 12-06-2022 ANES ------ -- Attestation signed by Maxine Guzmán MD at 12/06/2022 10:59 AM Maxine Guzmán MD, MPH, [facility], [facility], [facility] Interventional Cardiology Pager Email: [email or web address] -- Patient: Boby Lancaster Procedure Information Date/Time: 12/06/22 1130 Procedure: Coronary angiography (Left) Location: [facility] MDS MANAGER 3 / [facility] (Cath) Providers: Maxine Guzmán MD Clinical information reviewed: Tobacco Allergies Meds Med Hx Surg Hx Fam Hx Soc Hx Physical Exam Airway Mallampati: III Cardiovascular Rhythm: regular Rate: normal Dental Pulmonary Breath sounds clear to auscultation Abdominal Abdomen: soft Anesthesia Plan ASA 3 other (Conscious sedation) intravenous induction Anesthetic plan and risks discussed with patient. Use of blood products discussed with patient who consented to blood products. Plan discussed with attending. Additional Equipment Requests [facility] HPon 12-06-2022 HP ------ -- Attestation signed by Maxine Guzmán MD at 12/06/2022 11:01 AM By using the attestations below, the signing clinician agrees that I have read and verify that the documentation has been personally reviewed by me and ensure that the documentation accurately reflects the encounter. GC: I personally saw this patient on the day of the encounter, performed the banks portion(s) of the service and participated in the management and confirm the resident's documentation. Please note there may be an additional personal documentation from me. Maxine Guzmán MD, MPH, [facility], [facility], [facility] Interventional Cardiology Pager Email: [email or web address] -- History Of Present Illness Boby Lancaster is a 62 y.o. male presenting for coronary angiography today. He was referred for this procedure due to abnormal stress test. he was feeling significantly fatigued; in addition he started to experience chest pressure with exertion and at rest. He was found to have a non-ST elevation myocardial infarction. He underwent percutaneous revascularization and stent placement of the right coronary artery in May 2022. He was found to have 100% in-stent occlusion of the left anterior descending; an attempt at PUBLIC SERVICES ASSISTANT intervention was unsuccessful. Past Medical History He has a past medical history of Coronary artery disease, Diabetes mellitus ([facility]), and Hyperlipidemia. Surgical History He has a past surgical history that includes Coronary stent placement. Social History He reports that he has been smoking cigarettes. He has a 40.00 pack-year smoking history. He has never used smokeless tobacco. No history on file for alcohol use and drug use. Allergies Patient has no known allergies. Medications Medications Prior to Admission Medication Sig Dispense Refill Last Dose aspirin 81 mg EC tablet Take 81 mg by mouth in the morning. 12/06/2022 atorvastatin (Lipitor) 80 mg tablet Take 1 tablet (80 mg) by mouth in the morning. 90 tablet 3 12/06/2022 clopidogrel (Plavix) 75 mg tablet Take 1 tablet (75 mg) by mouth once daily as directed. (Patient taking differently: Take 75 mg by mouth in the morning.) 90 tablet 3 12/06/2022 ezetimibe (Zetia) 10 mg tablet Take 1 tablet by mouth once daily (Patient taking differently: Take 10 mg by mouth in the morning.) 90 tablet 0 12/06/2022 lisinopril 2.5 mg tablet Take 2.5 mg by mouth in the morning. 12/06/2022 metoprolol succinate XL (Toprol-XL) 100 mg 24 hr tablet Take 1 tablet (100 mg) by mouth in the morning. Do not crush or chew. 90 tablet 3 12/06/2022 nitroglycerin (Nitrostat) 0.[address] 0.4 mg under the tongue every 5 (five) minutes if needed for chest pain. Past Month omeprazole (PriLOSEC) [address] capsule Take 20 mg by mouth in the morning. 12/06/2022 Ozempic 0.25 mg or 0.5 mg (2 mg/3 mL) pen injector Inject 0.25 mg under the skin every 7 (seven) days. Takes on Sundays Past Week SITagliptin phos-metformin (Janumet) 50-1,000 mg tablet Take 1 tablet by mouth with breakfast and with evening meal. 12/05/2022 metoprolol tartrate (Lopressor) 100 mg tablet Take 50 mg by mouth. Not Taking Review of Systems Physical Exam Last Recorded Vitals Blood pressure 123/76, pulse 78, resp. rate 15, SpO2 97 %. 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 Mid anterior, apical anterior and apical inferior defect (at least 50% Reversible) Recent NSTEMI (05/2022) Dyslipidemia Diabetes mellitus Smoker Plan to proceed with coronary angiography with possible PCI today. [facility] NURSNOTEon 12-06-2022 NURSNOTE RN educated pt on d/ c instructions. RN encouraged pt to voice any questions or concerns. Pt verbalizes no questions or concerns at this time. Pt was wheeled off of unit with all of belongings. [facility] Auto Diffon 11-29-2022 Basophils/100 WBC (Bld) 0.9 % Normal 0.0-2.0 [facility] Comment on above: Order Comment: Order Added by Yesica Expert. Performed By: #### 2 082359, 7123993, 50384559, 7317054 ####[facility] [address] [place] [address] Basophils/Leukocyte s Auto (Bld) [Pure # fraction] 0.1 E9/L Normal 0.0-0.2 [facility] Comment on above: Order Comment: Order Added by Discern Expert. Performed By: #### 2 074163, 0582380, 58775539, 9133870 ####[facility] [address] [place] [address] Eosinophils/100 WBC (Bld) 3.8 % Normal 0.0-8.0 [facility] Comment on above: Order Comment: Order Added by Yesica Expert. Performed By: #### 2 929279, 0783484, 87141286, 8545121 ####[facility] [address] [place] [address] Eosinophils/Leukocy neisha Auto (Bld) [Pure # fraction] 0.3 E9/L Normal 0.0-0.5 [facility] Comment on above: Order Comment: Order Added by Discern Expert. Performed By: #### 2 930147, 3701286, 99696111, 3873987 ####[facility] [address] [place] [address] Lymphocytes/100 WBC (Bld) 30.6 % Normal 14.0-50.0 [facility] Comment on above: Order Comment: Order Added by Discern Expert. Performed By: #### 2 126346, 2598339, 65288767, 7180855 ####[address] [address] Lymphocytes/Leukocy neisha Auto (Bld) [Pure # fraction] 2.4 E9/L Normal 1.0-4.0 [facility] Comment on above: Order Comment: Order Added by Discern Expert. Performed By: #### 2 085844, 4638692, 08059132, 4175325 ####[address] [address] Monocytes/100 WBC (Bld) 10.2 % Normal 4.0-14.0 [facility] Comment on above: Order Comment: Order Added by Yesica Expert. Performed By: #### 2 808685, 6520903, 45140063, 4665712 ####[address] [address] Monocytes/Leukocyte s Auto (Bld) [Pure # fraction] 0.8 E9/L Normal 0.2-1.0 [facility] Comment on above: Order Comment: Order Added by Yesica Expert. Performed By: #### 2 341218, 0679003, 80128581, 2892286 ####[address] [address] Neutrophils/100 WBC (Bld) 54.5 % Normal 36.0-75.0 [facility] Comment on above: Order Comment: Order Added by Discern Expert. Performed By: #### 2 076774, 9970179, 23547727, 2755295 ####[address] [place] [address] Neutrophils/Leukocy neisha Auto (Bld) [Pure # fraction] 4.3 E9/L Normal 2.0-7.5 [facility] Comment on above: Order Comment: Order Added by Yesica Expert. Performed By: #### 2 665371, 5370938, 78527638, 9639096 ####[address] [address] BMPon 11-29-2022 Anion gap [Moles/Vol] 12 mmol/L Normal 6-16 [facility] Comment on above: Performed By: #### 2 453240, 0970573, 62863923, 9161043 ####[facility] [address] [place] [address] Calcium [Mass/Vol] 9.2 mg/dL Normal 8.9-11.1 [facility] Comment on above: Performed By: #### 2 613481, 6648432, 65610165, 4957804 ####[facility] [address] [place] [address] Chloride [Moles/Vol] 104 mmol/L Normal 101-111 [facility] Comment on above: Performed By: #### 2 948904, 4703940, 76553230, 9581480 ####[facility] [address] [place] [address] CO2 [Moles/Vol] 27 mmol/L Normal 21-31 [facility] Comment on above: Performed By: #### 2 341882, 9568093, 26815103, 9442411 ####[facility] [address] [place] [address] Creatinine [Mass/Vol] 1.3 mg/dL Normal 0.5-1.3 [facility] Comment on above: Performed By: #### 2 207677, 1339726, 71467942, 3722149 ####[facility] [address] [place] [address] Glucose [Mass/Vol] 124 mg/dL Normal 55-199 [facility] Comment on above: Result Comment: If t his glucose result represents a fasting glucose, interpretation should refer to the following reference range: 55-99 mg/dL Performed By: #### 2 714235, 3769294, 27027779, 3764399 ####[facility] [address] [place] [address] Potassium [Moles/Vol] 4.4 mmol/L Normal 3.5-5.3 [facility] Comment on above: Performed By: #### 2 704867, 0940002, 40726565, 5172555 ####[facility] [address] [place] [address] Sodium [Moles/Vol] 139 mmol/L Normal 135-145 [facility] Comment on above: Performed By: #### 2 516719, 4095164, 64186303, 7346353 ####[facility] [address] [place] [address] Urea nitrogen [Mass/Vol] 23 mg/dL High 5-21 [facility] Comment on above: Performed By: #### 2 181566, 6237504, 04649353, 0472001 ####[facility] [address] [place] [address] Urea nitrogen/Creatinine [Mass ratio] 18 No Units Normal 10-20 [facility] Comment on above: Performed By: #### 2 495417, 4938371, 18462476, 1877380 ####[facility] [address] [place] [address] CBC w/ Auto Diffon 3 Erythrocyte distribution width (RBC) [Ratio] 14.3 % High 10.9-14.2 [facility] Comment on above: Performed By: #### 2 277497, 7444415, 20946165, 2937649 ####[address] [place] [address] Hematocrit (Bld) [Volume fraction] 40.1 % Normal 37.7-49.0 [facility] Comment on above: Performed By: #### 2 365859, 5362642, 27788108, 7015423 ####[address] [place] [address] Hemoglobin (Bld) [Mass/Vol] 13.4 g/dL Low 13.5-17.5 [facility] Comment on above: Performed By: #### 2 435721, 5039111, 77553759, 9287952 ####[address] [place] [address] MCH (RBC) [Entitic mass] 29.0 pg Normal 27.0-34.0 [facility] Comment on above: Performed By: #### 2 064156, 3790928, 97330272, 6290327 ####[address] [address] MCHC (RBC) [Mass/Vol] 33.5 g/dL Normal 31.4-36.0 [facility] Comment on above: Performed By: #### 2 420983, 0711730, 51793411, 0696888 ####[address] MCV (RBC) [Entitic vol] 86.5 fL Normal 80.0-100.0 [facility] Comment on above: Performed By: #### 2 594132, 9221428, 06047234, 9147451 ####[address] Platelet mean volume (Bld) [Entitic vol] 8.3 fL Normal 6.4-10.8 [facility] Comment on above: Performed By: #### 2 514030, 7982385, 90199888, 3770437 ####[address] [address] Platelets (Bld) [#/Vol] 272.0 E9/L Normal 150.0-500.0 [facility] Comment on above: Performed By: #### 2 634799, 2742771, 34530346, 5535582 ####[address] [address] RBC (Bld) [#/Vol] 4.6 E12/L Normal 4.3-5.9 [facility] Comment on above: Performed By: #### 2 332293, 6277584, 64128081, 3851484 ####[address] [address] WBC corrected for nucl RBC Auto (Bld) [#/Vol] 7.9 E9/L Normal 4.0-11.0 [facility] Comment on above: Performed By: #### 2 178637, 0736301, 78039365, 2348969 ####[facility] [address] [place] [address] CHEMISTRYOrdered By: SYSTEM SYSTEM on 11-29-2022 Anion gap [Moles/Vol] 12 mmol/L Normal 6 - 16 mEq/L [facility] Remisol Calcium [Mass/Vol] 9.2 mg/dL Normal 8.9 - 11. 1 mg/dL [facility] Chloride [Moles/Vol] 104 mmol/L Normal 101 - 111 mmol/L [facility] CO2 [Moles/Vol] 27 mmol/L Normal 21 - 31 mmol/L [facility] Remisol Creatinine [Mass/Vol] 1.3 mg/dL Normal 0.5 - 1.3 mg/dL [facility] Remisol GFR/1.73 sq M.predicted among non-blacks MDRD (S/P/Bld) [Vol rate/Area] 63 mL/min/1.73 m2 Normal >=59mL/min/1.7 3 m2 [facility] Chem S Glucose [Mass/Vol] 124 mg/dL Normal 55 - 199 mg/dL [facility] Remisol Potassium [Moles/Vol] 4.4 mmol/L Normal 3.5 - 5.3 mmol/L [facility] Remisol Sodium [Moles/Vol] 139 mmol/L Normal 135 - 145 mmol/L [facility] Remisol Urea nitrogen [Mass/Vol] 23 mg/dL High 5 - 21 mg/dL [facility] Remisol Urea nitrogen/Creatinine [Mass ratio] 18 mg/mg Normal 10 - 20 [facility] Remisol CHEMISTRYOrdered By: Teagan David on 11-29-2022 HbA1c (Bld) [Mass fraction] 8.6 % High <=5.9% [facility] ChemAutoSS Consent for Treatmenton Consent for Treatment [id number]#[id number]:127 Normal [facility] Consent for Treatment [id number]#[id number]:127 Normal [facility] HEMATOLOGYOrdered By: SYSTEM SYSTEM on 11-29-2022 Basophils/100 WBC (Bld) 0.9 % Normal 0.0 - 2.0 % [facility] HemeAutoSS Basophils/Leukocyte s Auto (Bld) [Pure # fraction] 0.1 E9/L Normal 0.0 - 0.2 E9/L [facility] HemeAutoSS Eosinophils/100 WBC (Bld) 3.8 % Normal 0.0 - 8.0 % [facility] HemeAutoSS Eosinophils/Leukocy neisha Auto (Bld) [Pure # fraction] 0.3 E9/L Normal 0.0 - 0.5 E9/L [facility] HemeAutoSS Lymphocytes/100 WBC (Bld) 30.6 % Normal 14.0 - 50.0 % [facility] HemeAutoSS Lymphocytes/Leukocy neisha Auto (Bld) [Pure # fraction] 2.4 E9/L Normal 1.0 - 4.0 E9/L [facility] HemeAutoSS Monocytes/100 WBC (Bld) 10.2 % Normal 4.0 - 14.0 % [facility] HemeAutoSS Monocytes/Leukocyte s Auto (Bld) [Pure # fraction] 0.8 E9/L Normal 0.2 - 1.0 E9/L [facility] HemeAutoSS Neutrophils/100 WBC (Bld) 54.5 % Normal 36.0 - 75.0 % [facility] HemeAutoSS Neutrophils/Leukocy neisha Auto (Bld) [Pure # fraction] 4.3 E9/L Normal 2.0 - 7.5 E9/L [facility] HemeAutoSS HEMATOLOGYOrdered By: Rosario Alfaro on 11-29-2022 Erythrocyte distribution width (RBC) [Ratio] 14.3 % High 10.9 - 14.2 % [facility] HemeAutoSS Hematocrit (Bld) [Volume fraction] 40.1 % Normal 37.7 - 49.0 % [facility] HemeAutoSS Hemoglobin (Bld) [Mass/Vol] 13.4 g/dL Low 13.5 - 17.5 gm/dL [facility] HemeAutoSS MCH (RBC) [Entitic mass] 29.0 pg Normal 27.0 - 34.0 pg [facility] HemeAutoSS MCHC (RBC) [Mass/Vol] 33.5 g/dL Normal 31.4 - 36.0 gm/dL [facility] HemeAutoSS MCV (RBC) [Entitic vol] 86.5 fL Normal 80.0 - 100.0 fL [facility] HemeAutoSS Platelet mean volume (Bld) [Entitic vol] 8.3 fL Normal 6.4 - 10.8 fL [facility] HemeAutoSS Platelets (Bld) [#/Vol] 272.0 E9/L Normal 150.0 - 500.0 E9/L [facility] HemeAutoSS RBC (Bld) [#/Vol] 4.6 E12/L Normal 4.3 - 5.9 E12/L [facility] HemeAutoSS WBC corrected for nucl RBC Auto (Bld) [#/Vol] 7.9 E9/L Normal 4.0 - 11.0 E9/L [facility] HemeAutoSS YztS1akn 11-29-2022 HbA1c (Bld) [Mass fraction] 8.6 % High <=5.9 [facility] Comment on above: Performed By: #### 7 [id number] ####[facility] [address] [place] [address] Physician Orderon 11-29-2022 Physician Order [id number]#1.00CD:127 Normal [facility] eGFRon 11-29-2022 GFR/1.73 sq M.predicted among non-blacks MDRD (S/P/Bld) [Vol rate/Area] 63 mL/min/1.73 m2 Normal >=59 [facility] Comment on above: Order Comment: Order added by Discern Expert. Result Comment: Composition Instructor noel kidney disease could be indicated at eGFR's of less than 60 mL/min/1.73m2. Kidney failure is indicated at less than 15 mL/min/1.73m2. Performed By: #### 2 355176, 6628635, 03477215, 9907438 ####[facility] [address] [place] [address] Orders Onlyon 11-28-2022 Orders Only [id number] Boby Lancaster 1960 M Date Provider Department Center 11/28/2022 928-ZAKIA BUTLER CARD [facility] No family history on file [facility] Stress EKG Tracingson 2022 Stress EKG Tracings [id number]#[id number]:127 Normal [facility] NM Myocardial Spect Rest/Str ess 1 Dayon 11-25-2022 NM Myocardial Spect Rest/Stress 1 Day Exam Date/Time: 11/16/2022 11:23 EDT Reason for Exam: [id number] Report PROCEDURE: Lexiscan nuclear stress test. INDICATIONS: Chest pain. PROCEDURE DETAILS: The patient was stressed according to Lexiscan protocol without event. Baseline EKG was sinus rhythm, normal EKG. The patient received 10.2 mCi of Cardiolite for rest images and 30.6 mCi of Cardiolite for stress images. There were no symptoms. Review of raw images demonstrated patient had some diaphragmatic attenuation. FINDINGS: Uptake of the tracer was dishomogeneous. There was a large area at rest of decreased uptake in the septum, anterior basal and mid as well as apical septal segments. This increased in size by four segments with peak stress to include the apical inferior, apical anterior and mid anterior wall. The total amount of the defect was 40%. It was at least 50% reversible. The ejection fraction was 53%. End-diastolic volume was 77 mL. TID was 1.09. CONCLUSIONS: High risk stress test. I have attempted to get a hold of the patient for immediate response and urgent catheterization. Clinical correlation is suggested. FINAL REPORT Signed (Electronic Signature): 11/25/2022 10:04 am Signed by: Sonia BAEZ, Danuta Fowler Transcribed by: maria luisa Technologist: ASHLEY Technical Comments Rest Dose (mCi Tc99m Cardiolite): 10.2 Stress Dose (mCi Tc99M Cardiolite): 30.6 Normal [facility] Insurance Correspondenceon 0 11-17-2022 Insurance Correspondence [id number]#1.00CD:[address] [facility] Consent for Treatmenton 10-29 Consent for Treatment [id number]#1.00CD:[address] [facility] Physician Orderon 11-08-2022 Physician Order [id number]#[id number]:127 Normal [facility] Office Visiton 10-24-2022 Follow-up visit [id number] Boby Lancaster 1960 M Date Provider Department Center 10/24/2022 271-MAXINE GUZMÁN CARD [facility] No family history on file Level of Service:13858 [place] OFFICE/OUTPATIENT ESTABLISHED MOD MDM 30-39 MIN [facility] Orders Onlyon 10-24-2022 Orders Only [id number] Boby Lancaster 1960 M Date Provider Department Center 10/24/2022 895-JANICE MEZA [facility] No family history on file [facility] Family Medicine Office/Clini c Noteon 07-26-2022 Family Medicine Office/Clinic Note Chief Complaint physical HPI Staff Pt here for annual physical. Concerns:None Health Maintenance: Colonoscopy:03/11/22 PSA:05/22/21 Last Labs:05/30/22 History of Present Illness Boby Lancaster presents today for an annual physical. Last A1c was 7.7% on 08/25/2021. He is due today for an A1c. Last lab work was 05/30/2022. BMP and CBC were unremarkable. He normally checks his A1c at the hospital at no cost. He inquires about Ozempic. He can get 3 months of Ozempic for the ceron of 1. Denies needing any medication refills today. Blood pressure today is stable 98/70 mmHg. His heart rate is stable. History of -maker. Patient had a stent placed approximately 3 weeks ago due to LAD blockage. His artery was 97% plugged. He was having pressure sensation. He has 4 capillaries feeding the left side of his heart. He has 6 stents altogether. 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 Prior to stent placement his symptoms included constant fatigue. No longer having fatigue since the stent placement. Patient gets very little leg edema where his sock lines are. He walks 7 miles a day and wears work boots on concrete. He checks his ankles pulse every night. His last colonoscopy or Cologuard was 2 to 3 months ago. He is down to smoking less than a pack a day. He has lost 2 pounds since 12/2021. Review of Systems PHQ Score Initial Depression Screen Score: 0 Negative except as above. Physical Exam Vitals & Measurements HR: 72(Peripheral) BP: 98/70 SpO2: 94% HT: 68 in HT: 173 cm WT: 71.4 kg WT: 157.08 lb BMI: 23.86 Gen: No acute distress, sitting comfortably in chair Cardio: RRR, no murmur/rubs/gallops Resp: CTAB, no wheezing/rales/rhonchi Ext: No cyanosis, no edema Psych: Pleasant, normal mood, normal affect Neuro: CN II-XII intact, normal gait Assessment/Plan 1. Visit for preventive health examination (Z00.00: Encounter for general adult medical examination without abnormal findings) Up to date. Colonoscopy up to date. Blood work, repeat A1c ordered today. 2. Type 2 diabetes mellitus with hyperglycemia (E11.65: Type 2 diabetes mellitus with hyperglycemia) Last A1c was 7.7% in 07/2021. Repeat A1c ordered today. Continue with Janumet. He is to take the Ozempic 0.25 mg for 1 month and then take 2 of them for a total of 0.5 mg the second month. We will increase each month until we max him out on the Ozempic. Urine microalbumin and foot exam up to date today. 3. Type 2 diabetes mellitus with vascular disease (E11.59: Type 2 diabetes mellitus with other circulatory complications) Last A1c was 7.7% in 07/2021. Repeat A1c ordered today. Continue with Janumet. He is to take the Ozempic 0.25 mg for 1 month and then take 2 of them for a total of 0.5 mg the second month. We will increase each month until we max him out on the Ozempic. Urine microalbumin and foot exam up to date today. 4. Hypertension (I10: Essential (primary) hypertension) Stable. Continue with lisinopril and metoprolol. 5. BMI 23.0-23.9, adult (Z68.23: Body mass index [BMI] 23.0-23.9, adult) Normal BMI. 6. Smoker (F17.200: Nicotine dependence, unspecified, uncomplicated) Patient is quitting on his own, down to less than half a pack a day. 7. CAD (coronary artery disease) (I25.10: Atherosclerotic heart disease of [place] coronary artery without angina pectoris) Sees cardiology. Defer management to them. Continue with metoprolol, aspirin, atorvastatin, clopidogrel, and ezetimibe. ATTESTATION: Documentation services were performed after patient or guardian consented to allow Roman Gaxiola to record this visit. TERRY tire specialist and provider reviewed before signing. TERRY: Harshil Ayers Follow-up With When Contact Information Lillie Edgar MD, [facility], MED In 6 months 04/10/[address] [phone] [facility] (1) Additional Instructions: Problem List/Past Medical History Ongoing CAD (coronary artery disease) Chronic GERD Coronary artery disease Diabetes Family history of colon cancer History of colon polyps Hx of heart artery stent Hypercholesteremia Hyperlipidemia Hypertension Left shoulder pain Smoker Type 2 diabetes mellitus with hyperglycemia Type 2 diabetes mellitus with vascular disease Visit for preventive health examination Historical Body mass index (BMI) 24.0-24.9, adult Body mass index [BMI] 24.0-24.9, adult HTN - Hypertension HI Procedure/Surgical History Colonoscopy (03/11/2022), cardiac stent (11/24/2007), Colonoscopy, PCI (percutaneous coronary intervention) of RCA (right coronary artery). Medications aspirin 81 mg Chew Tab, 81 mg= 1 tab(s), Oral, Daily, 3 refills atorvastatin 80 mg Tab, 80 mg= 1 tab(s), Oral, Daily clopidogrel 75 mg Tab, 75 mg= 1 tab(s), Oral, Daily ezetimibe 10 mg Tab, 10 mg= 1 tab(s), Oral, Daily handicap placard, See Instructions Janumet XR 50 mg-1000 mg oral tablet, (more content not included)... Normal [facility] Comment on above: Result Comment: Elec tronically Signed By: Lillie Edgar MD\.br\Date and Time Signed: 07/26/22 09:37 EDT\.br\Electronically Co-Signed By: Harshil Ayers\.br\Date and Time Co-Signed: 07/22/22 18:18 EDT Ambulatory Visit Summaryon 0 07-22-2022 Ambulatory Visit Summary BOBY LANCASTER :1960 Visit Date:07/22/2022 Ambulatory Visit Instructions Your Diagnosis Visit for preventive health examination Type 2 diabetes mellitus with hyperglycemia Type 2 diabetes mellitus with vascular disease Hypertension BMI 23.0-23.9, adult Smoker CAD (coronary artery disease) Your Care Team Attending Physician - Lillie Edgar MD Primary Care Physician - Jeanine WAYNE MD This Is Your Medications List Contact prescribing physician if questions or concerns Misc Prescription (handicap placard) aspirin (aspirin 81 mg Chew Tab) atorvastatin (atorvastatin 80 mg Tab) clopidogrel (clopidogrel 75 mg Tab) ezetimibe (ezetimibe 10 mg Tab) lisinopril (lisinopril 2.5 mg Tab) metformin-sitagliptin (Janumet XR 50 mg-1000 mg oral tablet, extended release) metoprolol (metoprolol 100 mg ER Tab) omeprazole (omeprazole 20 mg Cap-DR) semaglutide (Ozempic 2 mg/1.5 mL (0.25 mg or 0.5 mg dose) subcutaneous solution) Procedures Performed Colonoscopy (03/11/2022), cardiac stent (11/24/2007), Colonoscopy, PCI (percutaneous coronary intervention) of RCA (right coronary artery). Discharge Vitals Heart Rate (Peripheral) 72 Blood Pressure 98/70 Height 173 cm Height 68 in Weight 71.4 kg Weight 157.08 lb BMI 23.86 What to do next Scheduled Follow-Up Appointments 2022 3:40 PM EDT With: Lillie Edgar MD Where: [facility] Type 2 diabetes mellitus with vascular disease, Print Label By Order Location\.br\ Medications\.b r\ What How Much When Why Instructions\. br\ Unchanged aspirin (aspirin 81 mg Chew Tab) 1 Tablets By Mouth Every day Contact prescribing physician if questions or concerns \.br\ Unchanged atorvastatin (atorvastatin 80 mg Tab) 1 Tablets By Mouth Every day Contact prescribing physician if questions or concerns \.br\ Unchanged clopidogrel (clopidogrel 75 mg Tab) 1 Tablets By Mouth Every day Contact prescribing physician if questions or concerns \.br\ Unchanged ezetimibe (ezetimibe 10 mg Tab) 1 Tablets By Mouth Every day Contact prescribing physician if questions or concerns \.br\ Unchanged lisinopril (lisinopril 2.5 mg Tab) 2.5 Milligram By Mouth Every day Type 2 diabetes mellitus with vascular disease Contact prescribing physician if questions or concerns \.br\ Unchanged metformin-tom gliptin (Janumet XR 50 mg-1000 mg oral tablet, extended release) 1 Tablets By Mouth 2 times a day Type 2 diabetes mellitus with vascular disease Diabetes mellitus treated with oral medication Type 2 diabetes mellitus with hyperglycemia Contact prescribing physician if questions or concerns \.br\ Unchanged metoprolol (metoprolol 100 mg ER Tab) 1 Tablets By Mouth Every day Contact prescribing physician if questions or concerns \.br\ Unchanged Misc Prescription (handicap placard) See instructions Use as directed duration 5 years Contact prescribing physician if questions or concerns \.br\ Unchanged omeprazole (omeprazole 20 mg Cap-DR) 1 Capsules By Mouth Every day Acid reflux Contact prescribing physician if questions or concerns \.br\ Unchanged semaglutide (Ozempic 2 mg/ 1.5 mL (0.25 mg or 0.5 mg dose) subcutaneous solution) 0.25 Milligram Subcutaneous Every week Type 2 diabetes mellitus with hyperglycemia Contact prescribing physician if questions or concerns \.br\ Allergies\.br\ No Known Allergies\.br\ Problems\.br\ Ongoing - Any problem that you are currently receiving treatment for.\.br\ CAD (coronary artery disease)\.br\ Chronic GERD\.br\ Coronary artery disease\.br\ Diabetes\.br\ Family history of colon cancer\.br\ History of colon polyps\.br\ Hx of heart artery stent\.br\ Hypercholester emia\.br\ Hyperlipidemia \.br\ Hypertension\. br\ Left shoulder pain\.br\ Smoker\.br\ Type 2 diabetes mellitus with hyperglycemia\ .br\ Type 2 diabetes mellitus with vascular disease\.br\ Visit for preventive health examination\.b r\ Historical - Any problem that you are no longer receiving treatment for.\.br\ Body mass index (BMI) 24.0-24.9, adult\.br\ Body mass index [BMI] 24.0-24.9, adult\.br\ HTN - Hypertension\. br\ HI\.br\ \.br\ [facility] Physician Orderon 07-22-2022 Physician Order [id number]#[id number]:127 Normal [facility] Coding Summary.on 07-20-2022 Coding Summary. [id number] Gh0bWw +PGhlYWQ+LH7CMNLkC65kcRDuc I6dQ2ZWRSyXAwfeBTFMJNiVLwX jcqNzEG1ceOIgZEOv IC8+PI7cVPBuNddhjFNwb3M1hI U3J56xsm1gVGfmfTR3LXUjJxQs mtqpb0nhiWa8ELuxSgcnCyVr UOIhjV85VVQ8wC06Wg99pZRadZ Fsm8ifeWc7BkRwXNNsYOR7uIxa NYxgt4OdVNGjO42caGZkg1N6 TFGjcUlqlZCuXvShfAV8lQ2fKG xyxwddq5qwrbssSvf0yn87mCMc e6B8xQF8K0FhqpI2EUUpuJQi PbjdsEQAjX5paamhm5bzzkxcRy TePVOjURd5JVi9ZWOtgOdfIlYh VL72BUC1KSIvdrVjE7ZrVDLt tBlaAkN5k7K8Ny7JP6SPAwmmA7 VNTUFSWTwvdGQ+XG80mp32X9Mm ValdXhp3WFZiRAO9gGU7mZ1c JQPmYRjyo5B9mRP0P4LnhxPlcx 3dr5xmGNMrGHaiM15adWHhk3P3 WMUdiCW0PFJhmKdaQpIotE80 Oyc+XGLlaFnzo1HwZazrz7wvw2 rpmGy5BypgNVAlcnYzpNlaNUL2 t4DmWz3rHIFukRK7lGB1xA9i WiUbCeO7UWbjJ575XpEuxCPnAh dpF36lU5TomDE+SUJdUpi4RZPr fVoqHJ9cG6ByVQCksatncCLr iVvqPX5lSNZwjarsAWJmoO2tRX OvU5h9OkBxTaC8TQqxH4NwUYFf idjkSb99iY3fMwHhWbV7QOrp M6IucdG7FMFshGAgFDczZOE4T0 2bf0Q2BCGcIZXsAZT8gOG9yX2b bGlnbjogbGVmdDsgdmVydGlj RJxvXDfpT322JJKlnUeaLsUpNQ luZyBEYXRlOiAgMDMvMjIvMjAy MzwvdGQ+YBWnQIP3qNrhOZMx yZPuCSgdHs8ceYsljLofCX8vPR ZkcrxpVVOuvR2cZDUtdHRciSer SY6vMXIxuocou261GfMrNTU1 FYMvaTNeO4FdnG9dZjQsVULsIG RbN8JzfAHkFZxyX408NImhJlB8 YYVtzvHfV7ScDQRmsAuuAlC0 e9R3Ja7Wv8NsottkI1UewENrOd CkSzhwJJc8F4MlLrctoSZ+PC90 AAVsXX19KOr9UEB9tVgcAUys KMUhQ7ZqcC0sPtXjPQRvNLTdTt c+PHRhYmxlIHdpZHRoPScxMDAl TbMuoSelEM6sIw8lVVNcZXCc vQwncUGsPgYwi1okIWScDAnvLX 8zoBruZ4MdnZL0VFBij3s4Mj18 Q33pP7YngVV+GNGzgSQ1iDE1 lD2vYcTxUmO7BMoeS373GnThzZ JmWigau7pki2eotSc2MwS9SXFy lvYenUggIXB5j8SrXu03F83w IHdpZHRoPSIxNSUiIHZhbGlnbj 1svQ4qUh8+XAJlrCR1qMH5qL0o LeZbPwM8STjyL669TyZekVVf Lmpjl7bnp2nysRc2KnSyJXGudn MpxKueKLU6v0GzWm46Q2MeoQnq w7SlTxh7kr01uIKuz4Y9cUF4 U3VtKKMxxurlwVTukJezKG0pIK AwshnsPJLumA9qDOPqD4e8FwOk HzV3CQfiJ8ByeaZ0QXIgsSKe AESanDVCjI7cxmlig8cwexgqGl TdASYnXKh3HIb5EVXnkRkzDjFn SML4XzP2SMK1yKLtgW8nmSlq mdplrE6kItq+ASG5gXBmfIQDEB 1lOjwvdGQ+MWSsZUB3iFbkASvi BCIntA7cPMAdS2y1BiFxEfH4 VDdnW9OvwjH5GFXkrPOzTNOddT BRsS4pxqozv6gdefjvEfZyAYWx ZQo2INw9XAVvqEksWiNiQWP7 CnP2NZC5yIQrkW0gcSueojhnlO 9wOyc+MtukxWqwNWH9LOp1N6Tc Rho9ECPxeTbkOB6ulOFoMGzm Ho7txDjqbYqfBJ5jUCSimozho0 47UpUpz9soKWAxiYOgXDuvURX9 T52ew2F1NKRdVDYvOCZ7yOS0 xW5eaZuelvgdoDMpkSuughVbeD iqCYofLWlnJ518KXSwbLikGaZj AJi1C1KgHga8VJTheBtzXN4a rATaTCabQx4tnNhcrJxfWG8oGF Utdenez411CjNmo2wzQMXbmJTe NCvhAKV4I17kh1E0VTFtHOCu UDG7cSH1wL6qjHrmibvaoCMhzH vjpdPbfAgnYOlpYFzbH611PVDd eMqgTeFvzOd2Q8DjLyu3HTXp rKxmHK9gtOOlFKhiQb2ckKeyaP idDY4kDIYcabtfq233VoSsj8fo KABdhTYiXVfbPQD1K99ii5Q9 BJPiOLFhHIX9rGQ8dK6aaLloss ogbGVmdDsgdmVydGljYWwtYWxp J345IJPtvAooSlQteVoemyXz XIsfGAx2I4BjArwxpQO+PC90YW KyAH55cIDhyNVqq0qawOw3CyCx VFUuLVA4nTsjFCliz0MlELPe T80pfEOfq7L3DTTuzCirhHAdNw XuhKW8dV8jEKfebrwpv4cnjmfr Knuiv7dnbe29bP78K79sQDlr CDVhRVVdFDMlPEIpxGzguz6qjK 9wIi8+NVKceRE4eKR9pI8jYNZq FqR8SPivE086NqOloMKlFcad l8azn3hqoHp2UtT1DWLlmzRmoZ ffWON3h8XkRz57C05bOYxlZUMz UGOhVRJgHITvrTehae0hmE5t Ii8+ERGpsWT9bPV1bV5lHgDaTf O4IZyuO880FdEvjSXxHdblD32c H1XmqYF+SQXdYem1XTLqcHvf GI8moOPuXCkbDi6nYEJ7MaCpSa FuZTsyE0XvBALzwqsutytmsGF1 YPSlHMRmlA07Dz9uqMeiSQKq bTMAyW7itozkd3iddtauGcKdWM KcBHl5IBk2OUHimIgyDkDzROG7 VuO0YWF5iWJuxV3lgEfbneyz yV6qB8AhUWTepggwEh07cE8wLv ObWyQ9SEpbAqx+UklaRVIsIEhB TksgVzwvdGQ+RGHbPKM6zLea GFrsAZYjaV2hJSViM1l9LiPeUd M2ZNnaD3ToUSZtdwanHf86bP2d TrAkBuV3EAvaW1QoxkW9XSYx oCJnHSinCNJ1K12xy1V5UNIsBO FjHSB6kZF4uI1wpRugpizkbBEc gBfhgnNswIfjBYsrLHklG671 NLGjtKwiHtPsFaKmPvI2MpE4T8 BrFwl2UOXmnCwqRD5cdMYdYUig Nw6opLdatBlvNY2aEOBjatmt XAXdoT4hBPMrnUFzsJmqVR7qOJ Tvipguo249VyWlCFR2QCEggRYh V5EjfQ9hXaZcQJZgXCWzY9Ky uIBcKYgwP487RWgwTlL0LOVojy IuV4NbMNWxvBxrCoT0r3H8Gh77 MCBZZWFyczwvdGQ+PHRkIHN0 nGlzPAdrPJRnqJ5uKHEfJ3m8Tb YoMzX9ISwmB6VdHQGyjzfbCm35 kP0gFnCyQiP8MTwrU8OvopG3 VMCnnGBeAXryFFY7N19ei0U5BB NmSHSfUXU8tVV4gE5rgGmsxkup bGVmdDsgdmVydGljYWwtYWxp F773YVTulCacDd5njLN1H5CkEr m3RPWwxOkgRM0zuDJaPOykAw0o qNepnKrfYM9oMRDesgxtSKJx tZ3qWSBxhMGerCpeRL6dBYGahu kmd827JmTpDAM2EAUykBEhQ5Zu nR4gVaLxJFGoLHMjV3VngJTn BRtcD642LOtnGyE1LXCunoXbO3 YlLBDmiJwcHnR2b8M0Hr0ZyNTn UHZbHZ97PU52EN09S7XpRyid dGFibGU+PHRhYmxlIHdpZHRoPS nwWGInEjVlaLbnBJ4fZe6tYPAm TGQsoImcrFTnQzVuu9gnOPVe HVseUG1jtBhnB3BdrKX5MOUwg0 h7We24K27rM3VcgPH+PGNvbCB3 oNE8fT6cIiCeUsK1BDgqA579 LmBzcDNgBzsuj6rzh4qvqLn7Za FoWCCmpmFmaYqdDZO4g7IfBg86 A77cSMmiFYBjAPLjSGVdMSMc bMzxye5bcQ4fUq6+UXCjuBU8jW Y6nK2tEmAqDaK4CMifQ056OnQv sMBuGzfbH80pI1NozHW+PHRy Mrb3MBIzsOsyYT5yjQQuIKosEh 2iHPU1JdKgVjSkYFmoR9EtLEGw abycelvoxFI9ZFQvMDCbeJ57 Ub4gdOuiHt7dKUAdUJH9OSQyuV WzQ9BbaP2tDaGnINArADRdA3Ez nZXqYNsoI215TGbdNxI6IQZe ouMaW4FkNQZheWdaLbN2t1S5Mk 3CwXgdrGSiZH6tSxMqHBa2V2An Dmx2PCWufPvwXG8avQHnNExu Jv4alSdjfSkfJZ2qUKGhzhdsr4 75LrLar7phXPNsqWRcBUkiCFP6 E54ch2T0BTLpZSJeIRK4cAW3 dZ5ulKjsevojdHMhlOevbzYvbN yuTVllJXpeB774SOQhfCveOnUT Dyt4Q4UwTlz0GUBukBllCE4b xEQpCTjpBg4oqVtjmFvnEX1xJW Nkjgojm576IyVpu2evAFLpoUJp TWsjBZX6Q04zn2Q7AITwJNAk LIU5vVR4oG8ouTfqjhsxjBPodU xtvdTdeGrpYRvvZXdwQ663VZXe nQioYo0NUcp1R7DiXbo2VCIy bBycVH8czHByJBduQf1wyYwuvS zcNX8tCUGktamwj636MnXfg2ki MGVohQWbBVhzCZQ9T76ot9T9 NPLoPFTgWKH4xBD4zF4jzSociz ogbGVmdDsgdmVydGljYWwtYWxp K385MDCwqBarLuPooXJfIbpi dGQ+AP94mo12S5SqXpscEza2DC MaTQG5vLG2vA1pKABdYHrfl6A5 tBL6W9QhxgUlof9iy7ynGECq ZTog (more content not included)... Normal [facility] Heart and Vascular Office/Cl inic Noteon 07-12-2022 Heart and Vascular Office/Clinic Note Chief Complaint F/U PCI History of Present Illness Boby Lancaster is a 62-year-old male who is here for follow-up. Boby reports that he has recovered well from his procedure. He denies any chest pain or tightness. He explains that he went to cardiac rehab in the past; however, they wanted $ 90 per session. Boby explains that he walks approximately 7 miles a day. Review of Systems PHQ Score Initial Depression Screen Score: 0 Constitutional: no fever, no chills, no weakness, no fatigue Respiratory: no shortness of breath, no cough, no orthopnea, no wheezing Cardiovascular: no chest pain, no palpitations, no edema Neuro: no dizziness, no lightheadedness, no syncope Additional ROS info: Except as noted in the above Review of Systems and in the History of Present Illness all other systems have been reviewed and are negative or noncontributory. Physical Exam Vitals & Measurements HR: 78(Peripheral) BP: 100/70 SpO2: 93% HT: 68 in HT: 173 cm WT: 71.2 kg WT: 156.64 lb BMI: 23.79 General: alert, no acute distress Neck: Trachea midline, no JVD, no bruit Cardiovascular: regular rate and rhythm, no murmur, normal peripheral perfusion Respiratory: Lungs CTA, respirations non labored Extremities: no edema, no deformity, no trauma Neurological: oriented x 4, LOC appropriate for age, sensation equal & normal bilaterally, speech normal Skin: warm, dry intact Assessment/Plan Boby is a 62-year-old with a history of coronary artery disease. Patient should continue with present medication. Follow up in 6 months. ATTESTATION: Documentation services were performed after patient or guardian consented to allow [employer] to record this visit. TERRY tire specialist and provider reviewed before signing. TERRY: Vaishali Lindsayinoza Follow-up No qualifying data available Problem List/Past Medical History Ongoing BMI 22.0-22.9, adult CAD (coronary artery disease) Chronic GERD Coronary artery disease Diabetes Family history of colon cancer History of colon polyps Hx of heart artery stent Hypercholesteremia Hyperlipidemia Hypertension Left shoulder pain Smoker Type 2 diabetes mellitus with hyperglycemia Type 2 diabetes mellitus with vascular disease Historical Body mass index (BMI) 24.0-24.9, adult Body mass index [BMI] 24.0-24.9, adult HTN - Hypertension HI Procedure/Surgical History Colonoscopy (03/11/2022), cardiac stent (11/24/2007), Colonoscopy, PCI (percutaneous coronary intervention) of RCA (right coronary artery). Medications aspirin 81 mg Chew Tab, 81 mg= 1 tab(s), Oral, Daily, 3 refills atorvastatin 80 mg Tab, 80 mg= 1 tab(s), Oral, Daily clopidogrel 75 mg Tab, 75 mg= 1 tab(s), Oral, Daily ezetimibe 10 mg Tab, 10 mg= 1 tab(s), Oral, Daily handicap placard, See Instructions Janumet XR 50 mg-1000 mg oral tablet, extended release, 1 tab(s), Oral, BID, 3 refills lisinopril 2.5 mg Tab, 2.5 mg, Oral, Daily, 3 refills metoprolol 100 mg ER Tab, 100 mg= 1 tab(s), Oral, Daily omeprazole 20 mg Cap-DR, 20 mg= 1 cap(s), Oral, Daily, 3 refills Ozempic 2 mg/1.5 mL (0.25 mg or 0.5 mg dose) subcutaneous solution, 0.25 mg, SubCutaneous, qWeek, 3 refills Allergies No Known Allergies Social History Alcohol - No Risk, 02/03/2014 Substance Abuse - No Risk, 02/03/2014 Tobacco - High Risk, 02/03/2014 10 or more cigarettes (1/2 pack or more)/day in last 30 days Tobacco Use:. Never Smokeless Tobacco Use:. Cigarettes, Ready to change: No. Household tobacco concerns: Yes. Yes, 06/13/2022 Family History Family history is negative Immunizations Vaccine Date Status Comments influenza virus vaccine, inactivated 02/07/2022 Recorded SARS-CoV-2 (COVID-19) mRNAMUL.ORD![id number] 02/07/2022 Recorded influenza virus vaccine, inactivated 03/26/2021 Recorded SARS-CoV-2 (COVID-19) mRNA-1273 vaccine 03/26/2021 Recorded SARS-CoV-2 (COVID-19) mRNA-1273 vaccine 08/18/2020 Recorded [facility] Purdy SARS-CoV-2 (COVID-19) mRNA-1273 vaccine 07/16/2020 Recorded WM Rajwinder influenza virus vaccine, inactivated 01/15/2020 Recorded pneumococcal 23-valent vaccine 02/28/2017 Recorded influenza virus vaccine, inactivated 02/28/2017 Recorded diphtheria/pertussis, acel/tetanus adult 06/06/2016 Recorded diphtheria/pertussis, acel/tetanus adult 12/25/[address] [facility] Comment on above: Result Comment: Elec tronically Signed By: Sonia BAEZ, Danuta Fowler\.br\Date and Time Signed: 07/12/22 09:47 EDT\.br\Electronically Co-Signed By: Vaishali Valentino\.br\Date and Time Co-Signed: 07/11/22 20:44 EDT Consent for Treatmenton 06-29 Consent for Treatment [id number]#[id number]:[address] [facility] Outside Operativeon 07-06-19 23 Outside Operative [id number]#1.00CD:[address] [facility] Outside Operative [id number]#1.00CD:[address] [facility] Outside Operativeon 07-01-19 23 Outside Operative [id number]#1.00CD:[address] [facility] BASIC METABOLIC PANELon Anion gap [Moles/Vol] 12 mmol/L Normal 10 - 20 [facility] Comment on above: Performed By: #### B MP #### [address] [id number] Calcium [Mass/Vol] 10.1 mg/dL Normal 8.6 - 10.3 [facility] Comment on above: Performed By: #### B MP #### [address] [id number] Chloride [Moles/Vol] 101 mmol/L Normal 98 - 107 [facility] Comment on above: Performed By: #### B MP #### [address] [id number] Creatinine [Mass/Vol] 0.96 mg/dL Normal 0.50 - 1.30 [facility] Comment on above: Performed By: #### B MP #### [address] [id number] GFR/1.73 sq M.predicted among non-blacks MDRD (S/P/Bld) [Vol rate/Area] 90 mL/min/{1.73_m2} Normal >90 [facility] Comment on above: Result Comment: CALC ULATIONS OF ESTIMATED GFR ARE PERFORMED USING THE 2020 CKD-EPI STUDY REFIT EQUATION WITHOUT THE RACE VARIABLE FOR THE IDMS-TRACEABLE CREATININE METHODS. https://jasn.asnjournals.org/content/early//ASN.78702710 88 Performed By: #### B MP #### [address] [id number] Glucose [Mass/Vol] 166 mg/dL High 74 - 99 [facility] Comment on above: Performed By: #### B MP #### [address] [id number] HCO3 (Bld) [Moles/Vol] 30 mmol/L Normal 21 - 32 [facility] Comment on above: Performed By: #### B MP #### [address] [id number] Potassium [Moles/Vol] 4.2 mmol/L Normal 3.5 - 5.3 [facility] Comment on above: Performed By: #### B MP #### [address] [id number] Sodium [Moles/Vol] 139 mmol/L Normal 136 - 145 [facility] Comment on above: Performed By: #### B MP #### [address] [id number] Urea nitrogen [Mass/Vol] 20 mg/dL Normal 6 - 23 [facility] Comment on above: Performed By: #### B MP #### [address] [id number] CBCon 06-29-2022 Erythrocyte distribution width (RBC) [Ratio] 13.3 % Normal 11.5 - 14.5 [facility] Comment on above: Performed By: #### C BC #### [address] [id number] Hematocrit (Bld) [Volume fraction] 45.3 % Normal 41.0 - 52.0 [facility] Comment on above: Performed By: #### C BC #### [address] [id number] Hemoglobin (Bld) [Mass/Vol] 14.9 g/dL Normal 13.5 - 17.5 [facility] Comment on above: Performed By: #### C BC #### [address] [id number] MCHC (RBC) [Mass/Vol] 32.9 g/dL Normal 32.0 - 36.0 [facility] Comment on above: Performed By: #### C BC #### [address] [id number] MCV (RBC) [Entitic vol] 89 fL Normal 80 - 100 [facility] Comment on above: Performed By: #### C BC #### [address] [id number] Platelets (Bld) [#/Vol] 268 10*3/uL Normal 150 - 450 [facility] Comment on above: Performed By: #### C BC #### [address] [id number] RBC 5.09 x10E12/L Normal 4.50 - 5.90 [facility] Comment on above: Performed By: #### C BC #### [address] [id number] WBC (Bld) [#/Vol] 9.1 10*3/uL Normal 4.4 - 11.3 [facility] Comment on above: Performed By: #### C BC #### [address] [id number] Electrocardiogram 12 Leadon 06-29-2022 Electrocardiogram 12 Lead Ventricular Rate 76 Atrial Rate 76 P-R Interval 160 QRS Duration 78 Q-T Interval 398 QTC Calculation(Bazett) 447 P [place] 81 R [place] 50 T [place] 75 QRS Count 13 Q Onset 223 P Onset 143 P Offset 194 T Offset 422 QTC Frederic[place] 430 Diagnosis Class Borderline Normal Diagnosis Normal sinus rhythm Early transition Otherwise normal ECG No previous ECGs available Confirmed by Herson Calloway ([id number]) on 07/01/2022 4:21:04 PM Normal [facility] Insurance Correspondence Off iceon 06-29-2022 Insurance Correspondence Office [id number]:[id number] Normal [facility] Order Reconciliationon 06-29 Order Reconciliation Page 1 Discharge Reconciliation Document Reconciliation Type: Discharge requested on behalf of Danuta Damon (Physician) done by Danuta Damon) Discharge - Reconciliation: 29-Jun-2022 11:19 by: Danuta Damon) Home Medications EnteredHOME MEDICATIONS AT DISCHARGE DateReconciliation Comment/ Additional Information aspirin 81 mg oral tablet, chewable 1 tab(s) orally once a day 29-Jun-2022 08:33 aspirin 81 mg oral tablet, chewable 1 tab(s) orally once a day 29-Jun-2022 08:33 aspirin 81 mg oral tablet, chewable is continued as aspirin 81 mg oral tablet, chewable atorvastatin 80 mg oral tablet 1 tab(s) orally once a day 29-Jun-2022 08:31 atorvastatin 80 mg oral tablet 1 tab(s) orally once a day 29-Jun-2022 08:31 atorvastatin 80 mg oral tablet is continued as atorvastatin 80 mg oral tablet clopidogrel 75 mg oral tablet 1 tab(s) orally once a day 29-Jun-2022 08:32 clopidogrel 75 mg oral tablet 1 tab(s) orally once a day 29-Jun-2022 08:32 clopidogrel 75 mg oral tablet is continued as clopidogrel 75 mg oral tablet ezetimibe 10 mg oral tablet 1 tab(s) orally once a day 29-Jun-2022 08:33 ezetimibe 10 mg oral tablet 1 tab(s) orally once a day 29-Jun-2022 08:33 ezetimibe 10 mg oral tablet is continued as ezetimibe 10 mg oral tablet Janumet XR 50 mg-1000 mg oral tablet, extended release 1 tab(s) orally 2 times a day 29-Jun-2022 08:30 Janumet XR 50 mg-1000 mg oral tablet, extended release 1 tab(s) orally 2 times a day 29-Jun-2022 08:30 Janumet XR 50 mg-1000 mg oral tablet, extended release is continued as Janumet XR 50 mg-1000 mg oral tablet, extended release lisinopril 2.5 mg oral tablet 1 tab(s) orally once a day 29-Jun-2022 08:32 lisinopril 2.5 mg oral tablet 1 tab(s) orally once a day 29-Jun-2022 08:32 lisinopril 2.5 mg oral tablet is continued as lisinopril 2.5 mg oral tablet Metoprolol Succinate ER 100 mg oral tablet, extended release 1 tab(s) orally once a day 29-Jun-2022 08:31 Metoprolol Succinate ER 100 mg oral tablet, extended release 1 tab(s) orally once a day 29-Jun-2022 08:31 Metoprolol Succinate ER 100 mg oral tablet, extended release is continued as Metoprolol Succinate ER 100 mg oral tablet, extended release omeprazole 20 mg oral delayed release capsule 1 cap(s) orally once a day 29-Jun-2022 08:32 omeprazole 20 mg oral delayed release capsule 1 cap(s) orally once a day 29-Jun-2022 08:32 omeprazole 20 mg oral delayed release capsule is continued as omeprazole 20 mg oral delayed release capsule Ozempic 2 mg/1.5 mL (0.25 mg or 0.5 mg dose) subcutaneous solution 1 dose(s) subcutaneous once a week 29-Jun-2022 08:34 Ozempic 2 mg/1.5 mL (0.25 mg or 0.5 mg dose) subcutaneous solution 1 dose(s) subcutaneous once a week 29-Jun-2022 08:34 Ozempic 2 mg/1.5 mL (0.25 mg or 0.5 mg dose) subcutaneous solution is continued as Ozempic 2 mg/1.5 mL (0.25 mg or 0.5 mg dose) subcutaneous solution Current OrdersDateHOME MEDICATIONS AT DISCHARGE DateReconciliation Comment/ Additional Information Sodium Chloride 0.9% Infusion IV Bag Volume = 1,000 mL Run at: 100 mL/hr IntraVenous 29-Jun-2022 08:12 Sodium Chloride 0.9% Infusion is not required Home Medications Added During Discharge Reconciliation Discharge Discharge Diagnosis< I25.10 CAD (coronary artery disease) Discharge Provider, Yecenia Damon Instructions for Staff Only: Appointment with Dr. Turpin in 2 weeks Discharge Disposition : .Home Condition at Discharge: Satisfactory Discharge Communication Instructions for Nursing Only: Remove IV prior to discharge from hospital. Do not remove any midline, if present, without an order from the provider. Discharge Instructions - PHR After your discharge from the hospital, two Summary of Care Documents will be available online in your Personal Health Record (PHR). 1.Consolidated-Clinical Document Architecture (C-CDA) Patient Discharge Summary This document is a summary of your hospital stay to be kept for your reference.2.C-CDA Visit Summary This document is a summary of your hospital stay to be shared with your follow-up providers (doctor, pump operator, physical therapist, etc.). Guidelines for a Healthy Lifestyle All Active Home Medications at time of Discharge Reconciliation: 29-Jun-2022 11:19 aspirin 81 mg oral tablet, chewable 1 tab(s) orally once a day atorvastatin 80 mg oral tablet 1 tab(s) orally once a day clopidogrel 75 mg oral tablet 1 tab(s) orally once a day Discharge Discharge Diagnosis< I25.10 CAD (coronary artery disease) Discharge Provider, Yecenia Damon Instructions for Staff Only: Appointment with Dr. Turpin in 2 weeks Discharge Disposition : .Home Condition at Discharge: Satisfactory Discharge Communication Instructions for Nursing Only: Remove IV prior to discharge from hospital. Do not remove any midline, if present, without an order from the provider. Discharge Instructions - PHR After your d (more content not included)... [facility] Order Reconciliation Page 1 Admission Reconciliation Document Reconciliation Type: Admission requested on behalf of Danuta Damon (Physician) done by Danuta Damon) Admission - Reconciliation: 29-Jun-2022 11:14 by: Danuta Damon) Home MedicationsEnteredLast Dose TakenReconciled with current Order Reconciliation Comment/ Additional Information aspirin 81 mg oral tablet, chewable 1 tab(s) orally once a [id number]-Jun-2022 Reviewed and Held atorvastatin 80 mg oral tablet 1 tab(s) orally once a [id number]-Jun-2022 Reviewed and Held clopidogrel 75 mg oral tablet 1 tab(s) orally once a [id number]-Jun-2022 Reviewed and Held ezetimibe 10 mg oral tablet 1 tab(s) orally once a [id number] AM Reviewed and Held Janumet XR 50 mg-1000 mg oral tablet, extended release 1 tab(s) orally 2 times a [id number] AM Reviewed and Held lisinopril 2.5 mg oral tablet 1 tab(s) orally once a [id number]-Jun-2022 Reviewed and Held Metoprolol Succinate ER 100 mg oral tablet, extended release 1 tab(s) orally once a [id number] AM Reviewed and Held omeprazole 20 mg oral delayed release capsule 1 cap(s) orally once a day Reviewed and Held Ozempic 2 mg/1.5 mL (0.25 mg or 0.5 mg dose) subcutaneous solution 1 dose(s) subcutaneous once a [id number] Reviewed and Held Additional Current Orders Sodium Chloride 0.9% Infusion IV Bag Volume = 1,000 mL Run at: 100 mL/hr IntraVenous [facility] PCI (Percutaneous Cardiac In tervention)on 06-29-2022 PCI (Percutaneous Cardiac Intervention) [facility], Cyber Crime Investigator [address] [place] [address] Cardiovascular Catheterization Report Patient Name: BOBY LANCASTER Performing Physician: Chinmay Damon MD Study Date: 06/29/2022 Verifying Physician: Chinmay Damon MD MRN/PID: [id number] [employer] Weaver: Accession/Order#: [id number] Referring Physician: Chinmay Damon MD Date of : 1960 Referring Physician: Gender: M Referring Physician: Chinmay Damon MD Study: PCI (Percutaneous Cardiac Intervention) Additional Study: PCI - Percutaneous Coronary Intervention Indications: BOYB LANCASTER is a 62 year old male who presents with dyslipidemia, hypertension, prior percutaneous coronary intervention and tobacco Use - current. Acute coronary syndrome > 24 hrs and other PCI indication, with a chest pain assessment of typical angina. Study performed as an elective cath procedure. Medical History: Stress test performed: No. CTA performed: NoYonatan Marion accessed: No. LVEF Assessed: No. Procedure Description: After infiltration with 2% Lidocaine, the right femoral artery was cannulated with a modified Seldinger technique. Subsequently a 6 Somali sheath was placed in the right femoral artery. After completion of the procedure, femoral artery angiography was performed. This demonstrated a common femoral artery puncture appropriate for closure. An Angio-Seal VIP 6F ([employer]) vascular closure device was placed per protocol. Coronary Angiography: The coronary circulation is right dominant. Left Anterior Descending Coronary Artery Distribution: There is 100% stenosis in the proximal left anterior descending artery. This segment is PUBLIC SERVICES ASSISTANT. The device advanced to the proximal LAD lesion was: could not cross with escalating wire technique. Residual stenosis is 100 %. Hemo Personnel: + +- + Name Duty + +- + Danuta Damon MD, MD 1 + +- + Danuta Rodriguez RN PROC SCRUB 1 + +- + Joshua Granados RN PROC CIRC 1 + +- + Kathi Castro RN PROC CIRC 2 + +- + Jacinto Tenorio PROC RECORD 1 + +- + Emmy Moreno RN PROC NURSE 1 + +- + Joan Mix RN PROC NURSE 2 + +- + Sedation Time: + + + Sedation Start/End Times Time + + + Drugs Versed 1 mg IV per physician for sedatio + + + Start 06/29/2022 10:10:10 + + + Equipment Used: + +---- -+ Date/Time Description + +---- -+ 06/29/2022 10:19:00 AM {Sheath} - 6F [place] Sheath w/ Wire - Qty: 1 Each Part #: 1405 + +---- -+ 06/29/2022 10:19:21 AM {6 Fr Coronary Guide Catheter} - 6F XB3.5 [place] Brite Tip - Qty: 1 Each Part #: 108 + +---- -+ 06/29/2022 10:21:55 AM {Sheath} - 5F [place] Stiffened Micropuncture Kit - Qty: 1 Each Part #: 1393 + +---- -+ 06/29/2022 10:24:40 AM {Interventional Wires} - .014 Vibes Fielder XT 300cm bx - Qty: 1 Each Part #: 790 + +---- -+ 06/29/2022 10:25:00 AM {Trek} Enriquez Mini Trek 1.50mm x 15mm - Qty: 1 Each Part #: [id number] + +---- -+ 06/29/2022 10:31:46 AM {Interventional Wires} - .014 Miraclebros 6 300cm - Qty: 1 Each Part #: 847 + +---- -+ 06/29/2022 10:43:52 AM {Interventional Wires} - .014 Asacarlos Avila 180cm - Qty: 1 Each Part #: 782 + +---- -+ 06/29/2022 10:53:18 AM {Closure Device} - Angio-Seal 6F Closure VIP Plus - Qty: 1 Each Part #: 395 + +---- -+ Hemodynamic Pressures: +----+ + + + +---------+ Site Date Time Phase Name Systolic mmHg Diastolic mmHg Mean mmHg +----+ + + + +---------+ AO 06/29/2022 10:29:41 AM AIR REST 88 69 78 +----+ (more content not included)... [facility] Patient Profile - Preop v3on 06-29-2022 Patient Profile - Preop v3 Patient Profile - Preop: Initial Info: Patient DemographicsName: BOBY LANCASTER Date: 1960 Address: [address] [place] [address] Phone [phone] How to be AddressedHank Spoken Language PreferredEnglish Source of Informationpatient Stated Reason for AdmissionPCI Primary Contact Name and NumberDonna Medications Brought to Hospitalno General Health: Weight in kg70.8 kilogram(s) Weight in kja000 pound(s) Weight Methodactual (measured) Scale Typestanding Height in feet5 feet Height in inches7.95 inch(es) Height in cm172.5 centimeter(s) Height Methodstated BMI (kg/m2)23.793 square meter Patient or Family Member Reaction to Anesthesiano previous reaction Blood Avoidance/Restrictionsnone Previous Transfusion Reactionnot applicable Health Mgmt: Symptoms/Conditions Managed at Homeendocrine; behavioral health; gastrointestinal; cardiovascular; peripheral/neurovascular Cardiovascular Symptoms/Conditionshyperte nsion; myocardial infarction Endocrine Symptoms/Conditionsdiabete s Gastrointestinal Symptoms/Conditionsreflux/ heartburn Peripheral Neurovascular Symptoms/Conditionsneuropa thy Barriers to Managing Healthnone Relationship/Environ: Lives Withspouse Living Arrangementshouse Resource/Environmental Concernsnone Anticipated Transition [place] [facility] Anticipated at Transitionnone Tobacco Use: Tobacco Useyes Tobacco Typecigarettes Last Tobacco [id number] Number of Packs per Day1 Number of yrs55 Pack yrs55 Pre-op Checklist: Arrival [id number] Arrival Time08:01 Procedure TypePCI NPOyes Last Food [id number] 21:00 ID Band On Patientpatient ID (name), falls risk Consent Signedpending H&P Completeyes Anesthesia Assessment Completedpending EKG Performedyes Chest X-Ray Performednot ordered Preop Antibioticsnot ordered Type and Screen Resultedn/a Chlorhexadine Bath Givennot applicable Nasal Antiseptic Appliednot applicable Soap and Water Bath the Night Before Surgerynot applicable Hair Washed with Shampoonot applicable Bowel Prepno Surgical Site Infection Preventionyes Pain Scales and Managementyes Additional Information: Information Review: Allergies, Home Meds and Significant Events have been Reviewed and Verified with Patient/Familyyes Allergy, Intolerance, Adverse Event: Allergies: No Known Allergies: Active Electronic Signatures: Joan Mix) (Signed 29-Jun-2022 08:28) Authored: Initial Info, General Health, Health Mgmt, Relationship/Environ, Tobacco Use, Pre-op Checklist, Additional Information Last Updated: 29-Jun-2022 08:28 by Joan Mix) [facility] Coding Summary.on 06-22-2022 Coding Summary. [id number] Gh0bWw +PGhlYWQ+CF7OZSCaZ56kmFWrq F4HO2gJWW9SNUJYKNPGBV8BEN3 ppUQ2WFkaE6ZgbqHw TsocjATuWA28LQn3AYP1zMjqYV ibeW8mzVBoA5s6EsRrUP67pK35 MKnuEWAePyT9WrPblmmjiOPk Q2xrJmPueKXtEnb+PHRhYmxlIH okAHQdNLqrYTThZjUmtItmXN8d Gk8jVAUgJMMxmFehsEDrJsIx q8hnVNRpSOatZI8ajGwsN2TipL M7UCEuh1y2Eu57jMI+PHRkIHN0 eDnkNKggs183TtXzh9plGGU2 pGMbDRrxTVG8T82sx8Q4VCGyZZ GeUEU3cIJ6yV2erTzephbpK0Wo tKOqRtU2CUQ7vJElrL0rlBgl hktveE4kWib+J46AEO2LORRSBE 6NRyi1P5GhDmtmpTV+TU59ZKRv MQ02eALyrEAhc8scjDr2MdTe VFGaMDU2iNfcROsgu4QfVODnB3 6nlICog5V6MTFyhXezfKAbRhVp xNB1oN0mRBpymywsg0qwkahu Xxalk8nkcu59yB49T54oGZpzSN UkAOQ8ZDRePXLlqDdkvj0dpA1q Ii8+DNinx7dik3ewqGb9PxYt LGEhvsXxfBuvFXP3c8HoBd73A8 DidJpel7UwQtk2yz96hMEvd6F0 sBL2FLsdFHAyeC7bCEwwZyE4 WWTyAjFofL09wYRfUKjsLy2ypN gqiJbqFB5kQXZjtwuvCACllQ5a HBFhaJMeaUcdGZ9uBVMdmkbm s388SdKiIFV8WSKpcTBiU1VmcY 9mAtAjDUPgGXZkF2VkpNQkLYqu N248PGtaVxI7MVGnagQyO1Ij CTGrzZwkCuK4v3W2Ya5Lt8Rjxk vrTIV4PHbbDTMcElVnZeZyUxF2 A1SpOlc2KILbqHrmLY5hG9Ht EKKodyfqqpgepHX4VWIpSNFzgG 09oGZfIEwdCs3ou1D4j024DIJn WGIlyN40Ru1lwYmoOVSapHJE oE8usqtlp8aldbrrAeZoGKEqGJ d0GKa9DOXkgRliPtDrMVP3MzA5 SPX1qCEgnW4rfKnzuutyuY4l Oyc+C04buK9bMJW3FAW6bgvyYF MpgpPsCO89IO67L0SmFsnhfGHh bGU+OZFxypHusLkoJH3tKiOb u0wqj3MbZEhvF0HnPBEiHYjqOu l2GZVxUTU4gWA0uX7uRHBlMAnu t5I7xCD9C7MtipEusu9ee9ul XYQnJLifH50ylMJhr3F9EHExsD J9HICayEczUiGfbM84Dcn+PGNv uWmda0DoGszto9dqg5nqnSn9 WoFlSGSivrDtnGwkHYO3o3WiXr 23N58uZUcoZKSfIPBaZHQcMFPc sTqnbm6seN8lQo6+PGNvbCB3 yGB1hU5pFEDjEyP6DNglH516Mv WdbYPlNjyxe7zjx3vnrFc7JfGc QRAeaaHywJcyYZA6j1WgUm03 Y98wRVmfJDKhVOUhPVJyFBQrrO zugt0nsL4mSl0+OK8mz7yjow43 oG81qSB+GAUaBQR8wWbhJKee RPJfyQ9kTWgxDiA0EBCoBdEweG 82hIGgJPolJm3gcJxlkHkhYO8t YVIamtneo131RcKgx9zcCHAq lBBjPSqhPDU3W17rg6J6JGVuGB ElDJR2rQF7kX7phSqxmwpigKTn xUylooIknQyiSTcwRYbvW367 IHRvcDsnPlBhdGllbnQgTmFtZT p7V4XxXtl6CDErpAqjDM2toETo OFfaOs3tlVohcPdvAR7qQXYu fvmds664XuFfr4glIIRtbAApAO koNPN2G88de4H4EEKqURKcBYG1 wJJ5wT9qtGobgyqdrHLifLwl ywTlpZuvCPmxJBwhR773PRHobV spWiMcipIiNFOedLW7OV84OS83 fAKex1G0lYW9P1TzRPUdthuj njobkDM7AGAuTLBlhB65Ty4jeA ckRm6lEDDyQPK3UIJbcJJaI8Eq kC5vHwQbXPPiUGKnK9WqvHYs XSpsX751RDrkCjK6ILIswjIcB6 IbFMHfbDzcIhA7e5T4Hn3PJ6K3 VW23TX46dMGpg4R6tLN8G3Ja UCDqkwgekzpmwKP8ZJGkYCFxlU 22Bf3yjJsgWb7lTWDgEIK6LPRe yZRqH2XxdQ9mQyZuUSOqHWPc J1OiyWYmXQclJ384LLjdGzH1RM ZdrvCxS3ElNXHolGgvTwR9a9T6 Xn7ATUx1GL73QH05aXZzp5F0 pGJ9X7KxXIYaocxzzklmuCP2SM KrHOQlnC05Tg1okStnAs4mUMHb YVH1DGCeoXRtO6QxkW8pBvMq ECCuQIKuV1HiqSSeJEsnB670SJ xoMfG4QFDiaqMdC8PaIZRyuPox AhF7c2I7Vg2QFOOuZF32MDN5 bAB6YD07SV69Y3GvBifyjPSsfP U+PHRhYmxlIHdpZHRoPScxMDAl GsOovAeuTG4mYh4hHOYjZCUg gWgimBMdAiAom2byFMLjUTkfYZ 4veLulC2BxaNW4PPMuu4w2Tf35 I40wN5GekPY+WWRdfXF1qWS7 cU0kJkLhPoT8IFsrI118BdJwuR MeXcmlc7gph7qwfBb7ExN0FLWd dyPxhAdmKWV3r0McAm63L81d IHdpZHRoPSIxNSUiIHZhbGlnbj 6ydK3hJy2+EFOliVC4jUH5lX9c SyWnDgM2KIwfE711HmLbpNJb Adpck5vtq2lyjBr8NkHoTBMoff AxaInpKEL4a7BvTj02C8AaiJek v5KmYus4lx81nBMnh3W9yLR3 A0KqMSExonutvFUdyQxqKX5yYN SnrdpdFVOkcO6dJVRbG8j9RuJx MoG8MHpvW8UmdgA2VFKxqHBd CZlsDBC2W18rj3Z6XBGmLIOjHE Z5qQR1zN9prJxtupujpZMxgLmu mgRyxUsxPUjmAUyxZ840TESb vJxxSBJfoI8gSYDaiSVwoUebOC 6dVNLfpscaDmRAWtGQOFIVZN3B XMz5T9BsYzn3NYApfTwrMK0m tHNeZInfVc2luFobdVvqHU0vHD RlkmghMNEwuH6cKDXkjFElyAir VI9yQMOphwegs423IlIlZLW9 PLKqzTOxN9IcmS7aJiWtHNKmWB LtQ2IiiAQaAHkpG688SKmjNfX1 IKBujiJlJ8ErOYAlmAliQmV1 d0U2Mf4gJG4eAI4mPQPsGN63KG 63xIIln9S1jQZ8I2PxUZTvxcxb ennmcYM8CUOxRTVkmM54gFKo WMygRl4pg9Y8z944LWJgKDNvmX 39Jm0tkTleKVNtdMHToP4lbesq z1xqncmpBpQuSUYbVEu1XTy6 QCAnbQilAjMwCXU9CgI3LLY2mK NlqO2hkZmlwcvkpK2gSlp+NjAg JADezfJ4D0RvUtv1IOIwnRxv DM3hxEUrULiwUn8hrYqboKwtTO 2oYZCwkmmhAUPnhY1iIJWekGUq jNipAI3xPKJekgzft742CiLh HDI4FBUwzVWiS3CdmS4yYhCqBT CoXMLhV3MykPZxMLssZ450ZJyl YmG3CKUisqCiI4LkCQIpjWhv LfG9i3M7Ak4CSUjvCG14DZ10kY Cmi9M9fFH0W1VbBPKipqprcweu lAV0LNHwZPBicY70mYLdGEaa Zf8gw1H8a644BVXqIDUsnQ23Tq 8aiCmgAXEjuKJAzG4aymupt3fa kltgGjYzCIWoTDy0MTf0CEDp hKglLbRuFZQ7MaA2HBA6cAAihC 3elBwylxtibU4rJgj+F5O8wIZ1 aWVudDwvdGQ+WN02yr29U3Sl PjpnPyn6PKDwSIS0kRB9qT8pJQ ZyEQxmk8K5pGJ7N2BgulSrsb0d h3ccHLBcSGoiS17wrWXqp0I3 SCImzAA6BGSzoBmwWnLfeN80Al c+HXIfhNfdu3BiDobjc4qac5wk vKs1EjWxEBOteqGslWzcLWK7 g4JlAc38G63mQFvuIQXrSYNyWZ IuHKGllTvgfv4slT4yJo7+PGNv fNK8cDJ9rC1hEtAwMfF9XKtl B822NiKleMYlVnabd0uvd0hcgJ w6FyOkSIElbuCbcMwgZNH1g8Is Nm37N2ZviQvnp4QiTil0iw38 iJCkm1I5kTC6L2OwDXDzekxacV PbbOclDQ8mEKBvxisrQVWtuJ3t CRJpW2d8PaKnPzZ1MFusK3Dg rsD5JKKniWGnYAOahYAChW3vrc vma6ktiwgyLxJgRJFqRNi8CLv4 DOWtcDtmAvTbAHY8QoH4RQY1 hYItfF1aeAxbbypjwF7pApd+UG u6l5vbtJXlZT5atJE9MO47SW48 oPKrl8H5iEO3K3XaYEUmlwit mlfunRR8KGIzKXUydW03Aq9ddK rfQj8wAUUqMQD8UBPozKHcS0Cr lD9yFzTvKTVtEOGoJ8QvtRBq DDhoF184RDyhDhJ2UPSfsdFdD9 DjYJZkwJxwXuY2a5P9Dd7LRZ22 BI66VU35pHTfz8L7lXV0Y6Wl NLHjnhzaxghjjFU8JJBcDBVkgY 17Hr7noGpzSo1gWVJsJCL9SLSr iCWsN9NgkM3iHxCiJXBmFWQp X6ZkrCUkLOkzV383CGoqZoA9OK GrwbFpD8IgTQMgqDtiSdF0a3W2 Ur5EYm95EJ74LY76jUQhz6W4 dBX3L3VcDDXreyxmwjfoyIQ1YZ NyOUQysH14Ga2yrKonYx9uRUAt TVW8QGZytNRvM0QgtY6wTxXf TTBmORLuL5RqjXNwUAasD834HP diApG1IHJlnmOuY2NlEZWvnXfc CoZ9l9B5Mr8DJZzbcsq2T2Xy PjwvdHI+DX87MQZrMS80aGXmoV Nbo4zddEs4BqMwLTCxMGC1wKwa GTzhm1NlLQNcG87drIThm6O9 IGNv (more content not included)... [facility] Heart and Vascular Office/Cl inic Noteon 06-14-2022 Heart and Vascular Office/Clinic Note Chief Complaint post op History of Present Illness Boby Lancaster is a 62-year-old male patient who presents today for a follow-up evaluation. He is accompanied by an adult female. Boby states that prior to his last stent placement, he was constantly fatigued. However, since having the stent placed, he has been fine. However, he does experience fatigue while working on machines for 10 hours. Boby's wrist has healed well post cardiac catheterization. He states he is asymptomatic at the moment. He adds that he exercises regularly. Review of Systems PHQ Score Initial Depression Screen Score: 0 Constitutional: no fever, no sweats, no weakness Skin: no rash, no lesions, no bruising/petechiae ENMT: no sore throat, no congestion, no hoarseness Respiratory: no shortness of breath, no cough, no orthopnea, no wheezing Cardiovascular: no chest pain, no palpitations, no edema Gastrointestinal: no nausea, no vomiting, no diarrhea, no GI bleeding Genitourinary: no anuria/oliguria no hematuria Musculoskeletal: no back pain, no trauma Neurologic: no headache, no dizziness, no numbness, no weakness Psychiatric: no sleeping problems, no irritability, no anxiety/depression. Heme/Lymph: no bleeding tendency, no bruising tendency Allergy/Immunologic: no recurrent infections, no impaired immunity Additional ROS info: Except as noted in the above Review of Systems and in the History of Present Illness all other systems have been reviewed and are negative or noncontributory Physical Exam Vitals & Measurements HR: 67(Peripheral) BP: 96/62 SpO2: 95% HT: 68 in HT: 172 cm WT: 71.3 kg WT: 156.86 lb BMI: 24.1 General: alert, no acute distress Skin: warm, dry intact Head: atraumatic, normocephalic Neck: Trachea midline, no JVD, no bruit Eye: normal conjunctiva, sclera clear ENMT: oral mucosa moist Cardiovascular: regular rate and rhythm, no murmur, normal peripheral perfusion Respiratory: Lungs CTA, respirations non labored Chest wall: no deformity. Gastrointestinal: soft, non-distended, no tenderness, no guarding. Back: No tenderness, Normal ROM, Normal alignment. Extremities: no edema, no deformity, no trauma Neurological: oriented x 4, LOC appropriate for age, sensation equal & normal bilaterally, speech normal Psychiatric: cooperative, affect appropriate for age, normal judgement, normal psychiatric thoughts. Assessment/Plan Patient with CAD and recent ACS, status post PCI of severe mid RCA stenosis. DAPT and statin. Does have PUBLIC SERVICES ASSISTANT of the LAD with collaterals that are not particularly robust. He is not having symptoms but is large territory that is likely ischemic. A ventricular function is normal in this territory indicating that he is not infarcted. Recommend PUBLIC SERVICES ASSISTANT angioplasty at [place] for level 3. Patient agrees to proceed Follow up in 3 months. ATTESTATION: Documentation services were performed after patient or guardian consented to allow [email or web address] to record this visit. TERRY tire specialist and provider reviewed before signing. TERRY: Vaishali Valentino Follow-up No qualifying data available Problem List/Past Medical History Ongoing BMI 22.0-22.9, adult CAD (coronary artery disease) Chronic GERD Coronary artery disease Diabetes Family history of colon cancer History of colon polyps Hx of heart artery stent Hypercholesteremia Hyperlipidemia Hypertension Left shoulder pain Smoker Type 2 diabetes mellitus with hyperglycemia Type 2 diabetes mellitus with vascular disease Historical Body mass index (BMI) 24.0-24.9, adult Body mass index [BMI] 24.0-24.9, adult HTN - Hypertension HI Procedure/Surgical History Colonoscopy (03/11/2022), cardiac stent (11/24/2007), Colonoscopy, PCI (percutaneous coronary intervention) of RCA (right coronary artery). Medications aspirin 81 mg Chew Tab, 81 mg= 1 tab(s), Oral, Daily, 3 refills atorvastatin 80 mg Tab, 80 mg= 1 tab(s), Oral, Daily clopidogrel 75 mg Tab, 75 mg= 1 tab(s), Oral, Daily ezetimibe 10 mg Tab, 10 mg= 1 tab(s), Oral, Daily handicap placard, See Instructions Janumet XR 50 mg-1000 mg oral tablet, extended release, 1 tab(s), Oral, BID, 3 refills lisinopril 2.5 mg Tab, 2.5 mg, Oral, Daily, 3 refills metoprolol 100 mg ER Tab, 100 mg= 1 tab(s), Oral, Daily omeprazole 20 mg Cap-DR, 20 mg= 1 cap(s), Oral, Daily, 3 refills, Not taking: pt has not picked up from the pharmacy yet Ozempic 2 mg/1.5 mL (0.25 mg or 0.5 mg dose) subcutaneous solution, 0.25 mg, SubCutaneous, qWeek, 3 refills Allergies No Known Allergies Social History Alcohol - No Risk, 02/03/2014 Substance Abuse - No Risk, 02/03/2014 Tobacco - High Risk, 02/03/2014 10 or more cigarettes (1/2 pack or more)/day in last 30 days Tobacco Use:. Never Smokeless Tobacco Use:. Cigarettes, Ready to change: No. Household tobacco concerns: Yes. Yes, 06/13/2022 Family History Family history is negative Immunizations Vaccine Date Status Comments influenza v (more content not included)... [facility] Comment on above: Result Comment: Elec tronically Signed By: Sonia BAEZ, Danuta Fowler\.br\Date and Time Signed: 06/14/22 09:51 EST\.br\Electronically Co-Signed By: Vaishali Valentino\.br\Date and Time Co-Signed: 06/13/22 16:43 EST Physician Orderon 06-14-2022 Physician Order [id number]#1.00CD:[address] [facility] Physician Order [id number]#1.00CD:[address] [facility] Consent for Treatmenton 06-01 Consent for Treatment [id number]#1.00CD:[address] [facility] Reminderson 06-13-2022 Reminders - From: Darcy Garcia To: Kierra Pa; Sent: 06/13/2022 15:40:16 EST Show up: 08/11/2022 16:40:00 EDT Subject: 3 month follow up Due Date/Time: 09/10/2022 16:40:00 EDT Reminder/Recall 3 [address] up [address] Damon (August 2022) [facility] Coding Summary.on 06-07-2022 Coding Summary. CD:[id number]:[id number] Gh0bWw +PGhlYWQ+CO5RZCXrX59ojRSql D9RA7dYCZ6DKKOGFCHFFA5IKM5 toBG1RNhjC4RlqsZx OptrrAWfOH60AVw8XBN9sGkfTC dygB6ibOKhF4p3WwRhLF87xC45 KEcoTMTvOcF7BfVupcsatWVj F0cwVpTwjFWnVqs+PHRhYmxlIH hlKGKuCOyaXJNkIvUghAnnOS3z Ep2dGGQsHCApdNhvcIHuMwCx t5yeOWFoZVutUB2gxZhvL5IqsI R7RHWba9q9Xj14jEH+PHRkIHN0 mPbiLYzky448QyCbl5xzCRK5 gLRjAEkrVSE9G18ut8I2WSKbNZ FrSOP7ePQ8wP8egAhgqxhgE9Rz mVOhYqY5GKG4zEXqaY2xsIyv iwjkyU7rApd+N93THT0WXHHKXF 1PPqd0O8XiXkhzkVG+UQ07SAPc YO45pMImqUOgj6tsbMx1SpNp NSHlAYR1lLawGIxva5XuCULzK1 0bnBYal5E3HRHziWimlRYaDyWn qFF5iO0fYBduupxpx3rccibk Rtbux0vzzn36lM64Z11mGLfdJB IaQWH7BLVoFOVdrNjoqp0emV6o Ii8+PNxdu9iqn6pmlEc3VpAt NSMrheVboKonOWP9t2BzXy41R5 RclCxps3LgLia6pk30mIXjg9J5 pWO0KRfpBURemR1sBPyxFyD4 FZZwCuAtxZ12dUGsRFceQg0ajJ pryUiwTB2zXXHccxqbHMXjjQ6o CIXegCUtoXqyEA0fDBLroreg l058YcAhXJT8GBSweZYnX2SaqZ 8hNcXiSQZmRVJpU6DqmZIrLCdt W875BEreKuT8AWAsnsUgJ1Um MQSdsHdhSfX8b1G9Sn4Hj0Diow hkVWI9XPvnUGSkBzW6LhTnCdO9 X3CwRvo6EOIgfIgkES7eQ4Nf AYHwlxwsgcwolFP7AIRgLGBtwP 99wOOsQWnaTa1yg1O6q237WFVs DEJvaL32Qy7zgLhbUAHkuVXJ cS8ospgvt7vvhfklYiKvLCPwAI s1HQq6JPRlkZagTtWtOKR2BrF2 BAG0hIPgwL1tcLdzakrxvZ4g Oyc+G18juE8yQGN7PUB2gdghEO OycvYuVR11OO55J8VqZbxpxIXq bGU+RCZvtdEzyKkgAS2sHjWg n0ozs6TjRVgeV8MkVXMkBUlaBp m6FOAwCIX2iZM4pB4zSPKnWZxg a6Z0sXZ1Y9MnbuGcev7fz4lb LSUyGDscE20psIAmn9I1FJAhxT V6NIJrlPkzDcEgvS62Qzr+PGNv rLfrv3HvJocup2yuo5effGf4 KdUtZZTevrBsjFyqYEI2t3HuWt 53V56dKCqiKZZuQMGuOIPoPWPs bXnghs5kgZ5iDl6+PGNvbCB3 rAR4hC9rUJHsRfK6JHcdW491Mn PznYNsYirad0qic2rdlIo9VoJc OJBsdaGraYcqDVQ3i8NaDu35 Z26mIJueIHHyPUWzDXQdIIOfyT xpip5neH0hRj4+YN0gq8oaem36 aF44nXK+YYYxWRY0mWyzZKwn GZQitG1mRTsaNhU1WEKgWnXiyG 34fZAgRKbbQs0pzXojnQadBW5k SGSdudvnh818LbYtq1niANRd qBItCPuyPRS0P50zq2X9OHTfHR VsKXW8iUJ6nT9tpEdftixxlZQk wIodmfVsrNcmRCdhYMrpJ423 IHRvcDsnPlBhdGllbnQgTmFtZT b6I1ZvFna7AARvpWiqGA6yvTIe ZSyeKa9kpCrtwGmyVJ9jIGBb fidva056RrRnk0tlNQIpuBXjAP fiVRP2X33ml9W8HJOjJDEkMNW1 uBD1nY0vrQifbbfimJPvlZcg gjZhlOjoRJglHWwyJ116QDDpkR ekYuEpwcMsPIFudWO1GF93AE85 yLJho2U8wTO9D0CxCOQiorws tcfalFJ2NVAkPMKmqQ98Px0dtP tfNl4oXNAkOAZ8DVAbeXCeD7Gf fA2iUiRmSYXaHNNbF1VwuXQo IHggG220WUorFbM6NYXcgiPqL7 ChRMSybJalPlU8e0M1Em3WM0K0 DJ00MB17fEGhe5Q1yYO0H5Yl BBTctbaaqismzDD0PWTwKFRqsY 29Fq6aeXlmPh7zHXUvMXP2QIJc fDAaL4CnuV6lHkGpENBiGVMc K2IxkAMpYMozP748WLwkNcY4BS PfpxJuV9SzIJXgbVszWmG9t6A5 Xw0ITPs2RG05QE51aYAnq7V3 pDV5V3LdRSSrvdocdndotAU2DF AvVADfkD64Nb9hyWvhLj0dJNUl BUC2ZSKoaOCxB1EmeY9yMdGy QATuQSGpN9VqsPYpRPhyW219BC emWtU9FWSztbDbF8BxKLMcnPrz KzE3s4M6Yh3GHSKqZM17COX1 iAO1NW84NQ14C2ZiIvdpoZCmhX U+PHRhYmxlIHdpZHRoPScxMDAl EzEliLknMY7fJx6sBLWtGIMl rQmqvNMnFxRvh7tvJCTcTTtnET 4dfKsaM7CnjTO9EHTag2c8Hd59 E77iA1OyjHM+VQYonWZ0yIU2 yI7iNaDdBxI5TQrmG372FiHjxA VaPwjsl4hpw7osyTi4OfW5QADr anHhbHloTFK5t8IlPb83Q98t IHdpZHRoPSIxNSUiIHZhbGlnbj 8soU2xFc5+HXTlgCP6lAL0vW7r HrEtQpP3VQyiT533HgLxfCMi Tybvf8nye0hrfGq2IcJfFWWeyx MfhDteXHS8u9YgGq72R3EizEqv q9CtJgt4gj63xFHok5V7mGV2 D0IwRAKtytkguVNplEkdDE8jMV BwvjgzODLxvN2wZRToC2u0AkDf TyS6WPggS6QeexI2XUOvwTNd DPvxNOQ4L47xx0L4YYUwBJKdPP Y9dNH0uM1woOslwdbijPDbeDbq wrEamDfeMVmeTCboL919JBWe bQvrVJJixI0sJEWeiCLzkQorGW 7uDSZddxgwUuFGZvCNFUOSQW5L TOh6M6WwZvz4EAByrLaeKR1k eGKoKDujFh2hiFwfgDstWA6hNG UmypqrSAJplP6yCNIklBIrbWob QX3xKIKybtgds274FlYiYET8 OBPctDSxE0EioP0oUzHcONRtWM PlL8IelDPtXDvoB075SBcxUxX1 EIWobpVbJ0WdXTIuqCsgVnB2 r0Q8Ux9fJR0dNB4mATMcAC91RW 68uBJzt8V0lPN9Y6NiMOFfyeae ltcccHR1GGAtBWXmtS29cWXk DCazEf8mn1W7p406YGZtKJNcnK 89Au2aoKgoKUPxfGEMpI6vrumk v4ywntlkInAiRGWhOTh0PKw8 KBLkoAcpFxPaTHS9FaC1WBW6dS TtxM8jsYrfyuhhwQ1uNlr+NjAg HKXplrX2Y9NkKos6PEFqnLzi VU3qjMMsYRomBj3nlCuvqAbsKM 7jLRHretayFDNgdX5uPYZlbEQk tStgRE5zKZKrczidf254KlXa PQE0KCPwfMWuO2HmvH1zWmWzAF ZgUZCqC1ByoMOpBTseM849ZYdf ZwL8IWAtivQmY1OrOKRavUys CjI6i1M1Tx8VBMumPK25MX68cZ Sci0L2cZQ7M5HwMOTupfhtdfby fAR4ODVbPCTasR97zXHiYDbs Wp6ik5R9y667NPUbAAIvoX25Pc 9pxOfgWAVnqAKCsU7ebkwmv1fp jmgpXiNaWYOjSIf3SIa8XPPu vDekAmTnVZF5SjB2MIR8sMYwlN 0pfJlhsmwooZ0aZpl+IB5rEUBb BS45YF78DT57F8RpFxxhlVLa bGU+PHRhYmxlIHdpZHRoPScxMD LrSvYukNooVR7gZh9bUUAaNZZc eRzmhSIrLeJmb8xiRDDwICry MY3otFfhW5CecXL7DSWvw6d5Ku 27E84hG9JyfPK+DINwzGK7hEH4 rM2lNnTzFdC3IThyS340EjEc kXBwXhqlq9srq5rxhCd1MxRpKU OwwzUbgQznREK1e7PdQx40S37d IHdpZHRoPSIyMCUiIHZhbGln lh3nkQ9oFx8+QOOjpNB5yBH3zH 1cYkLrBnF8TQzgT885CxYblTPc ErauP71zZ0HtaKD+PHRyPjx0 WRJjkZcyZH6djUUbHUwxBl9cEE D9KgGjBfIuXWgoQ4WbASAyqsgq xbilpMR3ILLoWNVypV52Oq5n oAdrFf6oSCCjLXB1VEMtxLYtH9 LioN1nFyPrQGJlCBBkH4KxqPHo WZgmP244MSosDfM2TNNsceOc C4KhRSMtqHzxCqY9y5H5Ig3IuO gcgHJjYT1bNpPfYIz2G1SdUpd2 KGEfaNemUV8cgCRyBGspBf6y wVrouIdtBB2sMYGqcozwu425Kd Joe5plCQLrfEHsNJybNGM5L90d o2T3LPByZTWjJPN5pSX7qB3j bGlnbjogbGVmdDsgdmVydGljYW mkVMgnM473GEDvfNuoSdPVFvl5 T8ZnQto7WUGrkNglKQ4frNAx AVsmOr5wdLgqzJldIN8cFQGqjx csh639OvXke5qbIZEitEJuNKej WAD4O82bj8L5RDQuYPWoBAT6 dHB8hL9cvHvoetzbjWJmbQjpow DqgBliDHpqPLukD016MDQmxTgp Hu4TLbg6L6ZmHos9GHUcmGsb WX8zkGNrLMitFi7yoRwwuHskHM 6oFCNunutzy770LdSsf4xeOXCn wFWqKMrkLLA0X29gl8B5RRDp MBHiZKJ8qNB2wI2gmYmjhjwqlT EjbTibtkRuaVigEKonVFryC010 IHRvcDsnPlBheWVyOjwvdGQ+ KS38jq51B2MbQpbpBca7WLLlWO B8dLW5yV6kJJDbTRict4Q6eIB5 N2WdujChvo6no4fiKQJrGIgg Y29s (more content not included)... Normal [facility] Operative Reporton 3 Operative Report Indication for Surge ry Non-STEMI Preoperative Diagnosis Known CAD suspected new narrowing Postoperative Diagnosis Confirmed CAD with new narrowing of the RCA status post PCI Operation Coronary angiography Left ventriculography Hemodynamic measurements of the left ventricle PCI of the mid RCA with JULIO x1 This note is completed immediately following the procedure the date and time of this procedure are the same as this note. Surgeon(s) Danuta Damon MD Anesthesia Conscious sedation Estimated Blood Loss Trivial Findings LMT: Normal left main trunk with bifurcation LAD: Normal caliber with 100% proximal occlusion ISR stenosis, reaches the apex. Fills via collaterals from left to left appears chronic LCx: Normal caliber with mild irregularity and no stenosis, reaches the lateral wall. RCA: Normal caliber with 99% mid stenosis with slightly reduced distal flow appears to be hazy as in plaque rupture, dominant, reaches the inferior wall. Hemodynamics: Normal LVEDP with no gradient across the aortic valve. Left ventriculography: Normal LV systolic function, EF 50% , mild apical wall motion abnormalities and normal chamber size with no mitral regurgitation. PCI note: Successful PCI mid RCA 99% stenosis stenosis LUISITO II 0.75 flow reduced to 0% residual with LUISITO-3 flow after implantation of a Xience 3.0/28 postdilated 3.5 NC at high pressure. Conclusions: Significant new stenosis of the RCA is culprit vessel. None culprit is chronic occlusion of the LAD. We will consider revascularization of the LAD depending on ischemia and symptoms at a later date at a level 3 hospital. CAD: DAPT, beta-emili, statin, risk factor modification. Importance of antiplatelet compliance was emphasized including risk of stent thrombosis or . The patient understands as well as his accompanying family member/friend that the patient may have stent thrombosis or heart attack and the patient agrees. I myself have specifically counseled the patient regarding stent thrombosis risk including and the patient will additionally be counseled by the Cyber Crime Investigator team and in follow-up. Complications None Technique Following full and informed consent the patient was brought to the Cyber Crime Investigator where sterile prep and drape were administered in usual fashion. Anesthesia was obtained in the right wrist with lidocaine after administration of conscious sedation. A 5/6 slender Terumo sheath was placed in the right radial artery without complication. Nitroglycerin and nicardipine were given via the sheath and heparin was given intravenously. A 5 Somali JACKE catheter was advanced and selectively engaged in the left main coronary artery and right coronary artery each, where selective injections were performed. A pigtail catheter was placed in the left ventricle where hemodynamic measurements the left ventricle were made and a bolus was given for left ventriculography. A pullback gradient was obtained. A 6 Somali 3DRC catheter was advanced and selectively engaged in the right coronary artery. A wire was advanced across the lesion of the mid RCA. The lesion was dilated with a compliant balloon, stented with a drug-eluting stent X 1, and postdilated with a noncompliant balloon at high pressure. Completion angiography was performed in orthogonal projections with the wire and balloon removed. The guide catheter was removed without event. The sheath was removed with hemostasis obtained by D-Stat radial device at the end of the procedure without complication. Normal [facility] Comment on above: Result Comment: Elec tronically Signed By: Sonia BAEZ, Danuta Fowler\.br\Date and Time Signed: 06/03/22 14:17 EST Provider Letteron 06-02-2022 Provider Letter (Inserted Image. Barbara ble to display) June 02, 2022 BOBY LANCASTER [address] [place] [address] BOBY LANCASTER 1960 Dear Boby , We have been trying to reach you with no success. It is important that you return our call regarding scheduling your mri upon receiving this letter. Also, at the time of your call, please provide us with your current information. Thank you for your prompt attention to this matter. Sincerely, [facility] [place] [address] [place] [address] Normal [facility] Cardiovascular Reporton 05-03 Cardiovascular Report [id number]#[id number]:127 Normal [facility] Consent for Procedure/Surger yon 05-31-2022 Consent for Procedure/Surgery [id number]#[id number]:127 Normal [facility] Discharge Instructionson Discharge Instructions [id number]#[id number]:127 Normal [facility] Auto Diffon 05-30-2022 Basophils/100 WBC (Bld) 0.8 % Normal 0.0-2.0 [facility] Comment on above: Order Comment: Order Added by Discern Expert. Performed By: #### 1 [id number], 7986438, 30144076, 9731548, 8892105, [id number] #### [facility] [address] [place] [address] Basophils/Leukocyte s Auto (Bld) [Pure # fraction] 0.1 E9/L Normal 0.0-0.2 [facility] Comment on above: Order Comment: Order Added by Discern Expert. Performed By: #### 1 [id number], 7456950, 53068476, 1728783, 3269568, [id number] #### [facility] [address] [place] [address] Eosinophils/100 WBC (Bld) 2.1 % Normal 0.0-8.0 [facility] Comment on above: Order Comment: Order Added by Discern Expert. Performed By: #### 1 1556482, 3144314, 11684351, 8160739, 4677023, 74448102 #### [facility] [address] [place] [address] Eosinophils/Leukocy neisha Auto (Bld) [Pure # fraction] 0.2 E9/L Normal 0.0-0.5 [facility] Comment on above: Order Comment: Order Added by Discern Expert. Performed By: #### 1 8047900, 0443794, 02253536, 1364716, 9009604, 78753756 #### [facility] [address] [place] [address] Lymphocytes/100 WBC (Bld) 20.6 % Normal 14.0-50.0 [facility] Comment on above: Order Comment: Order Added by Discern Expert. Performed By: #### 1 1315006, 9889776, 94628069, 7995694, 9625166, 22370701 #### [facility] [address] [place] [address] Lymphocytes/Leukocy neisha Auto (Bld) [Pure # fraction] 1.9 E9/L Normal 1.0-4.0 [facility] Comment on above: Order Comment: Order Added by Discern Expert. Performed By: #### 1 7418429, 8517004, 06655062, 6827435, 2873587, 52965853 #### [facility] [address] [place] [address] Monocytes/100 WBC (Bld) 7.3 % Normal 4.0-14.0 [facility] Comment on above: Order Comment: Order Added by Discern Expert. Performed By: #### 1 0168818, 3171477, 11982983, 5560994, 7920065, 42421695 #### [facility] [address] [place] [address] Monocytes/Leukocyte s Auto (Bld) [Pure # fraction] 0.7 E9/L Normal 0.2-1.0 [facility] Comment on above: Order Comment: Order Added by Discern Expert. Performed By: #### 1 2835204, 5776680, 59141989, 4900967, 7152402, 21106093 #### [facility] [address] [place] [address] Neutrophils/100 WBC (Bld) 69.2 % Normal 36.0-75.0 [facility] Comment on above: Order Comment: Order Added by Discern Expert. Performed By: #### 1 6670019, 5083790, 56454512, 2349068, 6273753, 03941310 #### [facility] [address] [place] [address] Neutrophils/Leukocy neisha Auto (Bld) [Pure # fraction] 6.3 E9/L Normal 2.0-7.5 [facility] Comment on above: Order Comment: Order Added by Discern Expert. Performed By: #### 1 7659411, 2567748, 31102453, 2029151, 1230993, 16445491 #### [facility] [address] [place] [address] BMPon 05-30-2022 Creatinine [Mass/Vol] 1.2 mg/dL Normal 0.5-1.3 [facility] Comment on above: Performed By: #### 1 6254224, 6160531, 62527178, 8920956, 4401953, 84617279 #### [facility] [address] [place] [address] Urea nitrogen [Mass/Vol] 19 mg/dL Normal 5-21 [facility] Comment on above: Performed By: #### 1 4492643, 9834196, 42416849, 8815811, 0289339, 90032079 #### [facility] [address] [place] [address] Urea nitrogen/Creatinine [Mass ratio] 16 No Units Normal 10-20 [facility] Comment on above: Performed By: #### 1 2008640, 2303573, 52014285, 0030028, 3762544, 22965459 #### [facility] [address] [place] [address] Anion gap [Moles/Vol] 13 mmol/L Normal 6-16 [facility] Comment on above: Performed By: #### 1 3017381, 9027196, 35116249, 3451935, 4160802, 68627997 #### [facility] [address] [place] [address] Calcium [Mass/Vol] 9.3 mg/dL Normal 8.9-11.1 [facility] Comment on above: Performed By: #### 1 8602412, 1441240, 39120416, 6772035, 7017316, 43013824 #### [facility] [address] [place] [address] Chloride [Moles/Vol] 101 mmol/L Normal 101-111 [facility] Comment on above: Performed By: #### 1 4686808, 0212782, 94058857, 3076414, 3068559, 98719460 #### [facility] [address] [place] [address] CO2 [Moles/Vol] 26 mmol/L Normal 21-31 [facility] Comment on above: Performed By: #### 1 0854930, 1640368, 15007155, 1871883, 2821595, 56216860 #### [facility] [address] [place] [address] Glucose [Mass/Vol] 218 mg/dL High 55-199 [facility] Comment on above: Result Comment: If t his glucose result represents a fasting glucose, interpretation should refer to the following reference range: 55-99 mg/dL Performed By: #### 1 8058274, 8760336, 66352313, 3630232, 0104615, 53042872 #### [facility] [address] [place] [address] Potassium [Moles/Vol] 4.3 mmol/L Normal 3.5-5.3 [facility] Comment on above: Performed By: #### 1 0742714, 7882623, 68300741, 1563190, 7057818, 04565355 #### [facility] [address] [place] [address] Sodium [Moles/Vol] 136 mmol/L Normal 135-145 [facility] Comment on above: Performed By: #### 1 5167926, 1109173, 86445405, 2720528, 1755386, 34225704 #### [facility] [address] [place] [address] CBC w/ Auto Diffon Erythrocyte distribution width (RBC) [Ratio] 14.3 % High 10.9-14.2 [facility] Comment on above: Performed By: #### 1 1661526, 5854952, 67952035, 6666950, 0323557, 76339094 #### [facility] [address] [place] [address] Hematocrit (Bld) [Volume fraction] 45.6 % Normal 37.7-49.0 [facility] Comment on above: Performed By: #### 1 0359549, 0714752, 46102994, 4581390, 0529303, 56643583 #### [facility] [address] [place] [address] Hemoglobin (Bld) [Mass/Vol] 14.8 g/dL Normal 13.5-17.5 [facility] Comment on above: Performed By: #### 1 3741131, 6811550, 69499889, 5332879, 0483211, 97384287 #### [facility] [address] [place] [address] MCH (RBC) [Entitic mass] 28.7 pg Normal 27.0-34.0 [facility] Comment on above: Performed By: #### 1 5402057, 1301950, 16990131, 2474093, 0998061, 35339630 #### [facility] [address] [place] [address] MCHC (RBC) [Mass/Vol] 32.5 g/dL Normal 31.4-36.0 [facility] Comment on above: Performed By: #### 1 8868041, 8023646, 85483623, 8661108, 5435269, 67075213 #### [facility] [address] [place] [address] MCV (RBC) [Entitic vol] 88.1 fL Normal 80.0-100.0 [facility] Comment on above: Performed By: #### 1 9373950, 0852668, 21508236, 0892225, 9318401, 28193753 #### [facility] [address] [place] [address] Platelet mean volume (Bld) [Entitic vol] 7.5 fL Normal 6.4-10.8 [facility] Comment on above: Performed By: #### 1 1154129, 4346201, 94350506, 7809555, 3444796, 59888010 #### [facility] [address] [place] [address] Platelets (Bld) [#/Vol] 286.0 E9/L Normal 150.0-500.0 [facility] Comment on above: Performed By: #### 1 3257759, 4479712, 70023461, 8204427, 9026742, 24119785 #### [facility] [address] [place] [address] RBC (Bld) [#/Vol] 5.2 E12/L Normal 4.3-5.9 [facility] Comment on above: Performed By: #### 1 4146596, 3551332, 30650765, 9534365, 7784543, 25970711 #### [facility] [address] [place] [address] WBC corrected for nucl RBC Auto (Bld) [#/Vol] 9.1 E9/L Normal 4.0-11.0 [facility] Comment on above: Performed By: #### 1 1292590, 3217042, 74951961, 3275503, 1348776, 68902535 #### [facility] [address] [place] [address] Cardiovascular Reporton 05-03 Cardiovascular Report [id number]#[id number]:127 Normal [facility] Consent for Treatmenton 05-03 Consent for Treatment [id number]#[id number]:127 Normal [facility] ED Note-Physicianon 05-30-19 ED Note-Physician Basic Information Time Seen: Michele Romna DO 05/30/2022 07:55 Chief Complaint Pt reports chest pain intermittently since monday. Pt reports pain gets worse with ambulation. SOB. Hx of HI, 4 stents, blood thinner daily. History of Present Illness 62-year-old male comes to the ED for evaluation of chest pain. He states over the last few days he has had chest tightness. He describes exertional symptoms and does have some shortness of breath with this. He denies any cough, congestion, fever, chills. He has had no nausea vomiting diaphoresis. He does have a history of CAD with previous PCI. He is on aspirin and Plavix. Currently he is chest pain-free at rest. Review of Systems A 10 point review of systems is negative except as noted above. Medical and Surgical History: Reviewed and noted Social history: Lives at home Tobacco: Current Physical Exam Vitals & Measurements T: 36.4 ?C(Oral) HR: 74(Monitored) RR: 15 BP: 100/80 SpO2: 97% HT: 173 cm WT: 72 kg BMI: 24.06 Nurses notes and vital signs reviewed and patient is not hypoxic. General: The patient appears well and in no significant distress Patient is resting comfortably on the exam bed. Skin: Warm, dry, no pallor noted. Head: Atraumatic. Neck: No JVD. Eye: Normal conjunctiva. Ears, Nose, Mouth, and Throat: Moist mucous members. Cardiovascular: Strong distal pulses. Normal cardiac rate. Trace pretibial edema. Chest wall: Respiratory: Respirations are nonlabored. Back: Normal range of motion, no CVA tenderness. Musculoskeletal: Normal ROM with no gross deformity. Gastrointestinal: Soft and nontender. Urological: Neurological: Awake and alert. No focal deficits. Follows commands. GCS 15. Psychiatric: Cooperative. Medical Decision Making Laboratory studies reviewed and noted. Troponin is elevated at 109. EKG does show ST depressions. The patient continues to be chest pain-free while resting here. Chest x-ray with no acute infiltrates. Case is discussed the hospitalist for admission. Heart score is 8. Assessment/Plan 1. Unstable angina (I20.0: Unstable angina) Orders: nicotine, 21 mg, 1 patch(es), Patch-ER, TransDermal, Daily, STAT, Start date 05/30/22 8:53:00 EST ED Physician consult Hospitalist for continued care Medications Administered Given Nicoderm C-Q 21 mg/24 hr Patch-ER, 21 mg, TransDermal Disposition Plan Patient Discharge Condition Disposition: Admitted to the hospital Condition: Improved and stable Counseled: Patient and/or family were counseled to workup, results, treatment plan and follow-up recommendations Discharge Prescription List Prescriptions No active prescription medications Follow-up No qualifying data available Attestation Patient seen and evaluated by the physician regional administrative assistant. Attending physician was present in the emergency department and supervised care. This visit was performed by both the physician and an APC. I performed all aspects of the MDM as documented. This report was transcribed using voice recognition software. Every effort was made to ensure accuracy, however, inadvertently computerized boating safety officer mistakes may be present. Appropriate healthcare PPE was used in evaluating this patient. The patient was placed in a mask. The healthcare provider was wearing mask, gloves, and utilizing proper hand hygiene. All equipment was properly cleansed. Problem List/Past Medical History Ongoing BMI 22.0-22.9, adult CAD (coronary artery disease) Family history of colon cancer History of colon polyps Hx of heart artery stent Hypercholesteremia Left shoulder pain Smoker Type 2 diabetes mellitus with hyperglycemia Type 2 diabetes mellitus with vascular disease Historical Body mass index (BMI) 24.0-24.9, adult Body mass index [BMI] 24.0-24.9, adult HTN - Hypertension HI Procedure/Surgical History Colonoscopy (03/11/2022), cardiac stent (11/24/2007), Colonoscopy. Medications Inpatient Nicoderm C-Q 21 mg/24 hr Patch-ER, 21 mg= 1 patch(es), TransDermal, Daily Home aspirin 81 mg Chew Tab, 81 mg= 1 tab(s), Oral, Daily, 3 refills atorvastatin, 80 mg, Oral, Daily handicap placard, See Instructions Janumet XR 50 mg-1000 mg oral tablet, extended release, 1 tab(s), Oral, BID, 3 refills lisinopril 2.5 mg Tab, 2.5 mg, Oral, Daily, 3 refills metoprolol 100 mg ER Tab, 100 mg= 1 tab(s), Oral, Daily omeprazole 20 mg Cap-DR, 20 mg= 1 cap(s), Oral, Daily, 3 refills Ozempic 2 mg/1.5 mL (0.25 mg or 0.5 mg dose) subcutaneous solution, 0.25 mg, SubCutaneous, qWeek, 3 refills Plavix, 75 mg, Oral, Daily Allergies No Known Allergies Social History Alcohol - No Risk, 02/03/2014 Substance Abuse - No Risk, 02/03/2014 Tobacco - High Risk, 02/03/2014 10 or more cigarettes (1/2 pack or more)/day in last 30 days Tobacco Use:. Never Smokeless Tobacco Use:. Cigarettes, Ready to change: No. Household tobacco concerns: Yes. Yes, 05/26/2022 Family History Family history is negative Lab R (more content not included)... Normal [facility] Comment on above: Result Comment: Elec tronically Signed By: Jayden Wilson PA-C\.br\Date and Time Signed: 05/30/22 09:17 EST\.br\Electronically Co-Signed By: Michele Roman DO\.br\Date and Time Co-Signed: 05/30/22 09:54 EST Inpatient Clinical Summaryon 05-30-2022 Inpatient Clinical Summary [place] [address] Clinical Summary Person Information: Name: BOBY LANCASTER Age: 62 Years : 1960 Sex: Male PCP: Jeanine WAYNE MD Marital Status: Race: White Ethnicity: Non- or Language: Portuguese Visit Id: Visit Reason: CHEST PAIN Speciality: Acuity: Enc Type: Preadmit Med Service: Cardiovascular Arrival: Discharge: Dispo Type: Address: [address] [place] [id number] Provider Notes: Diagnosis: Problems Active Diabetes Hypertension Hyperlipidemia Coronary artery disease Chronic GERD Left shoulder pain Family history of colon cancer History of colon polyps BMI 22.0-22.9, adult Type 2 diabetes mellitus with hyperglycemia Hx of heart artery stent CAD (coronary artery disease) Smoker Hypercholesteremia Type 2 diabetes mellitus with vascular disease Smoking Status: Functional Status: Sensory Deficits: History of Falls: Mobility Assistance Prior to Admission: ADLs: Current Level of Assistance for Self-Care/Mobility: Cognitive Status: Allergies No Known Allergies Measurements: Height: Weight: Blood Pressure: Not Valued / Not Valued BMI: Procedures No Procedures Documented Immunizations No Immunizations Documented This Visit Final Med List: aspirin (aspirin 81 mg Chew Tab) 1 Tablets By Mouth every day. Refills: 3. atorvastatin (atorvastatin 80 mg Tab) 1 Tablets By Mouth every day. clopidogrel (clopidogrel 75 mg Tab) 1 Tablets By Mouth every day. ezetimibe (ezetimibe 10 mg Tab) 1 Tablets By Mouth every day. lisinopril (lisinopril 2.5 mg Tab) 2.5 Milligram By Mouth every day. Refills: 3. metformin-sitagliptin (Janumet XR 50 mg-1000 mg oral tablet, extended release) 1 Tablets By Mouth 2 times a day. Refills: 3. metoprolol (metoprolol 100 mg ER Tab) 1 Tablets By Mouth every day. Misc Prescription (handicap placard) Use as directed duration 5 years. Refills: 0. omeprazole (omeprazole 20 mg Cap-DR) 1 Capsules By Mouth every day. Refills: 3. semaglutide (Ozempic 2 mg/1.5 mL (0.25 mg or 0.5 mg dose) subcutaneous solution) 0.25 Milligram Subcutaneous every week. Refills: 3. Care Team Members: Attending Physician: Danuta Damon MD Consulting Physician: Referring Physician: Danuta Damon MD Follow up: With: Address: When: Danuta Damon [address] [place] [address] Business (1) 06/13/2022 2:45 PM Type Location Start [facility] 06/13/2022 2:45 PM 06/13/2022 3:00 PM Confirmed FM Open [facility] 07/22/2022 3:40 PM 07/22/2022 4:00 PM Confirmed Patient Education Information: CV - Cardiovascular PCI Discharge Instructions (CUSTOM) [facility] Inpatient Patient Summaryon 05-30-2022 Inpatient Patient Summary [address] [id number] Patient Discharge Instructions PERSON INFORMATION Name: BOBY LANCASTER Date of : 1960 Current Date: 05/30/2022 15:44:34 PHYSICIANS Admitting Physician: Danuta Damon MD Primary Care Physician: Jeanine WAYNE MD PCP Comment: Discharge Diagnosis: Condition at Discharge: Improved BOBY LANCASTER has been given the following list of follow-up instructions, prescriptions, and patient education materials: PATIENT FOLLOW-UP INFORMATION Diet: Regular Discharge Activity: Resume normal activities in 24 hours Discharge Restrictions: No driving for 24 hrs, Do not make important decisions for 24 hours, Do not drink alcoholic beverages for 24 hours Wound Care Instructions: Remove Your Dressing In 1 Days Call Your Doctor For: IF UNABLE TO CONTACT YOUR PHYSICIAN AND YOU FEEL IT IS AN EMERGENCY, GO TO THE NEAREST EMERGENCY ROOM OR CALL 1 Home Treatment: Devices/Equipment: Special Services: Additional Instructions: Remove armboard and dressing tomorrow and replace with a bandaid tomorrow. Primary Care Physician to provide the following pending test results: None Follow up: With: Address: When: Danuta Damon [address] [place] [phone] Business (1) 06/13/2022 2:45 PM In the event that this physician does not participate in your insurance network, please consult with your insurance company to find a nearby participating provider. Type Location Start [facility] ([facility] 06/13/2022 2:45 PM 06/13/2022 3:00 PM Confirmed Open [facility] 07/22/2022 3:40 PM 07/22/2022 4:00 PM Confirmed Comment: ITONNY HANK W, have received the attached patient education materials/instructions and have verbalized understanding: Patient Signature __ Date Clinican/Nurse Signature Date HERE ARE THE MEDICATION CHANGES THAT OCCURRED DURING YOUR HOSPITAL STAY Medications to Continue with No Changes Other Medications aspirin (aspirin 81 mg Chew Tab) 1 Tablets By Mouth every day. Refills: 3. Last Dose: N ext Dose: atorvastatin (atorvastatin 80 mg Tab) 1 Tablets By Mouth every day. Last Dose: N ext Dose: clopidogrel (clopidogrel 75 mg Tab) 1 Tablets By Mouth every day. Last Dose: N ext Dose: ezetimibe (ezetimibe 10 mg Tab) 1 Tablets By Mouth every day. Last Dose: N ext Dose: lisinopril (lisinopril 2.5 mg Tab) 2.5 Milligram By Mouth every day. Refills: 3. Last Dose: N ext Dose: metformin-sitagliptin (Janumet XR 50 mg-1000 mg oral tablet, extended release) 1 Tablets By Mouth 2 times a day. Refills: 3. Last Dose: N ext Dose: metoprolol (metoprolol 100 mg ER Tab) 1 Tablets By Mouth every day. Last Dose: N ext Dose: Misc Prescription (handicap placard) Use as directed duration 5 years. Refills: 0. Last Dose: N ext Dose: omeprazole (omeprazole 20 mg Cap-DR) 1 Capsules By Mouth every day. Refills: 3. Last Dose: N ext Dose: semaglutide (Ozempic 2 mg/1.5 mL (0.25 mg or 0.5 mg dose) subcutaneous solution) 0.25 Milligram Subcutaneous every week. Refills: 3. Last Dose: N ext Dose: Comment: MEDICATION LIST PROVIDED FOR YOU IS A LIST OF YOUR CURRENT MEDICATIONS. PLEASE CARRY THIS WITH YOU AT ALL TIMES. aspirin (aspirin 81 mg Chew Tab) 1 Tablets By Mouth every day. Refills: 3. atorvastatin (atorvastatin 80 mg Tab) 1 Tablets By Mouth every day. clopidogrel (clopidogrel 75 mg Tab) 1 Tablets By Mouth every day. ezetimibe (ezetimibe 10 mg Tab) 1 Tablets By Mouth every day. lisinopril (lisinopril 2.5 mg Tab) 2.5 Milligram By Mouth every day. Refills: 3. metformin-sitagliptin (Janumet XR 50 mg-1000 mg oral tablet, extended release) 1 Tablets By Mouth 2 times a day. Refills: 3. metoprolol (metoprolol 100 mg ER Tab) 1 Tablets By Mouth every day. Misc Prescription (handicap placard) Use as directed duration 5 years. Refills: 0. omeprazole (omeprazole 20 mg Cap-DR) 1 Capsules By Mouth every day. Refills: 3. semaglutide (Ozempic 2 mg/1.5 mL (0.25 mg or 0.5 mg dose) subcutaneous solution) 0.25 Milligram Subcutaneous every week. Refills: 3. Pharmacy Information: Other: Mina Li Comment: PATIENT EDUCATION INFORMATION Instructions: [place], [place] Cardiovascular PCI DISCHARGE INSTRUCTIONS Diet: ? Resume pre-procedure diet. ? Increase water int (more content not included)... Normal [facility] Interdisciplinary Note - Brenton singon 05-30-2022 Interdisciplinary Note - Nursing Toma Mahmood NP ordered patient's plavix following his heart catheterization with intervention. When I went to give patient the medication, he reported that he had already taken it today. Dose was held. Normal [facility] PT & PTTon 05-30-2022 aPTT Coag (PPP) [Time] 30.9 second(s) Normal 25.1-36.5 [facility] Comment on above: Result Comment: Para meter 15 days - 4 weeks 1 - 5 months 6 - 11 months 1 - 5 years 6 - 10 years 11 - 17 years PTT Mean: 35.4 (27.6-45.6) Mean: 33.5 (24.8-40.7) Mean: 32.4 (25.1-40.7) Mean: 31.6 (24.0-39.2) Mean: 31.6 (26.9-38.7) Mean: 31.0 (24.6-38.4) Pediatric Reference ranges were obtained from a study by Tye Estrada et al. prepared from 1437 samples obtained at 7 different centers using the same coagulation reagent and instrumentation as [facility]. Currently there are no coagulation studies available worldwide for children to 14 days, and no normal ranges. Heparin therapeutic range (represented by Anti-Factor Xa activity of 0.2 - 0.4 U/mL) corresponds to PTT of 56.6 - 109.0 sec. Performed By: #### 1 [id number], [id number], [id number], [id number], [id number] #### [facility] [address] [place] [address] INR Coag (PPP) [Relative time] 1.0 {INR} Invalid Interpretation Code [facility] Comment on above: Result Comment: INR results are specifically intended to assess patients stabilized on long-term Anticoagulation therapy suggested INR?s ?Less Intensive Anticoagulation? 2.0 ? 3.0 Conventional Range 3.0 ? 4.5 Performed By: #### 1 [id number], [id number], [id number], [id number], [id number] #### [facility] [address] [place] [address] PT Coag (PPP) [Time] 10.7 second(s) Normal 9.4-12.5 [facility] Comment on above: Result Comment: 15 d ays - 4 weeks 1 - 5 months 6 -11 months 1 ? 5 years 6 ? 10 years 11 -17 years Mean: 11.2 (9.5 ? 12.6) Mean: 11.0 (9.7 ? 12.8) Mean: 11.0 (9.8 ? 13.0) Mean: 11.3 (9.9 ? 13.4) Mean: 11.7 (10.0 ? 14.6) Mean: 11.8 (10.0 - 14.1) Pediatric Reference ranges were obtained from a study by Tye Estrada et al. prepared from 1437 samples obtained at 7 different centers using the same coagulation reagent and instrumentation as [facility]. Currently there are no coagulation studies available worldwide for children to 14 days, and no normal ranges. Performed By: #### 1 [id number], [id number], [id number], [id number], [id number], [id number] #### [facility] [address] [place] [address] Troponin 0 Hr.on 05-30-2022 Troponin I.cardiac [Mass/Vol] 109.90 pg/mL Abnormal 15.90-38.40 [facility] Comment on above: Result Comment: Crit ical Result verified by repeat analysis\ Critical Result I_hsTnI:109.9 Called to JEFF SORTO at ED by CATHERINE GARRIDO and read back for confirmation at 05/30/2022 08:38:49 The 95% CI (Confidence Interval) PPV (Positive Predictive Value) for myocardial infarction in females is 38 pg/mL, in males 51 pg/mL. The results should be used in conjunction with clinical conditions of myocardial infarction. ([employer] High Sensitivity Troponin I Instructions For Use, The ADEX, November 2017) Performed By: #### 1 [id number], [id number], [id number], [id number], [id number] #### [facility] [address] [place] [address] Troponin 3 Hr.on 05-30-2022 Troponin I.cardiac [Mass/Vol] 165.50 pg/mL Abnormal 15.90-38.40 [facility] Comment on above: Result Comment: Crit ical Result verified by previous result\ Critical Result I_hsTnI:165.5 Called to JESSICA DUNN at ED by CATHERINE GARRIDO and read back for confirmation at 05/30/2022 10:51:41 The 95% CI (Confidence Interval) PPV (Positive Predictive Value) for myocardial infarction in females is 38 pg/mL, in males 51 pg/mL. The results should be used in conjunction with clinical conditions of myocardial infarction. ([employer] High Sensitivity Troponin I Instructions For Use, The ADEX, November 2017) Performed By: #### 1 [id number] ####[facility] [id number] [place] [address] XR Chest Single Viewon 05-30 XR Chest Single View Exam Date/Time: 05/30/2022 08:13 EST Reason for Exam: Chest pain Report IMPRESSION: NO EVIDENCE OF ACTIVE CHEST DISEASE. CLINICAL HISTORY: Chest pain. COMPARISON: 11/08/2016. COMMENT: AP portable. The heart is normal in size. The mediastinum is unremarkable. The lungs appear clear. No infiltration nor pleural effusion is evident. No significant change is noted when compared to the prior exam. FINAL REPORT Dictated: 05/30/2022 11:01 am Shane Hu M.D. Signed (Electronic Signature): 05/30/2022 11:01 am Signed by: Shane Hu M.D. Transcribed by: CHET Technologist: JACQUELINE Normal [facility] eGFRon 05-30-2022 GFR/1.73 sq M.predicted among blacks MDRD (S/P/Bld) [Vol rate/Area] mL/min/{1.73_m2} Normal >=59 [facility] Comment on above: Order Comment: Order added by Discern Expert. Result Comment: eGFR is race adjusted. AA=. Performed By: #### 1 [id number], [id number], [id number], [id number], [id number] #### [facility] [address] [place] [address] GFR/1.73 sq M.predicted among non-blacks MDRD (S/P/Bld) [Vol rate/Area] mL/min/{1.73_m2} Normal >=59 [facility] Comment on above: Order Comment: Order added by Discern Expert. Result Comment: Composition Instructor noel kidney disease could be indicated at eGFR's of less than 60 mL/min/1.73m2. Kidney failure is indicated at less than 15 mL/min/1.73m2. Performed By: #### 1 [id number], [id number], [id number], [id number], [id number], [id number] #### [facility] [address] [place] [address] Family Medicine Office/Clini c Noteon 05-27-2022 Family Medicine Office/Clinic Note Chief Complaint left shoulder pain HPI Staff complaints of left shoulder pain Onset:3 months ago Characteristics:Pain in shoulder when arm is lifted. Can only lift arm half way OTC tried:None Health Maintenance: Colonoscopy:03/11/22 PSA:05/22/21 Last Labs:08/25/21 History of Present Illness Boby Lancaster is a 62-year-old [id number] male presenting to clinic today for left shoulder pain for the past 3 months. He denies any inciting injury or fall. 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 He can not remember any specific tearing or popping feeling. He reports that the pain is sharp and stabbing in nature. It comes and goes, only when he is lifting his arm up above 90 degrees forward or to the side. He said sometimes the pain will shoot down his arm and be numb and tingly that goes away after a few minutes. The pain does not radiate anywhere else. He does not have any upper neck pain or back pain. He has not tried anything except for a few Aleve. He said he thinks it helped a little bit, but they were addictive so he does not want to keep taking them. No other aggravating factors besides the movement. He notes the tingling and numbness goes down his arm to all of his fingers. He has done physical therapy in the past, but it did not help. He does exercises at home as well. He notes increase pain and tingling when he lifts us his arm fast and puts his arm behind his back. He denies any bruising or swelling. He notes the pain started overnight one day. He smokes roughly a pack a day. He is due for an A1c and other blood work in 06/2022. He will have his annual completed at that time. He is not taking anything for heartburn. He has heartburn every day. 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 He has a history of heart attacks and several stents placed. He is on aspirin for that. Review of Systems PHQ Score Initial Depression Screen Score: 0 Negative except as above. Physical Exam Vitals & Measurements HR: 72(Peripheral) BP: 118/76 SpO2: 97% HT: 68 in HT: 172 cm WT: 71.9 kg WT: 158.18 lb BMI: 24.3 Gen: No acute distress, sitting comfortably in chair Cardio: RRR, no murmur/rubs/gallops Resp: CTAB, no wheezing/rales/rhonchi Ext: No cyanosis, no edema Psych: Pleasant, normal mood, normal affect Neuro: CN II-XII intact, normal gait Shoulder exam: Left shoulder: Decreased range of motion positive lift off, positive empty can, positive external rotation with passive range of motion and with resistance Assessment/Plan 1. Left shoulder pain (M25.512: Pain in left shoulder) Physical therapy exercises given. Handout given to the patient. Ultrasound of the left shoulder ordered as well. We will consider MRI or other management pending results of the ultrasound. He is to use ice or heat. Can use Aleve or Tylenol as needed for pain. 2. Acid reflux (K21.9: Gastro-esophageal reflux disease without esophagitis) Trial omeprazole 20 mg x1 month. 3. BMI 24.0-24.9, adult (Z68.24: Body mass index [BMI] 24.0-24.9, adult) Normal BMI. 4. Smoker (F17.200: Nicotine dependence, unspecified, uncomplicated) Declines quitting at this time. Smokes about a pack a day. ATTESTATION: Documentation services were performed after patient or guardian consented to allow Roman Gaxiola to record this visit. TERRY tire specialist and provider reviewed before signing. TERRY: Aubrey Guevara Follow-up With When Contact Information Lillie Edgar MD, [facility], MED In [address] [place] [phone] Business (1) Additional Instructions: Patient Education Shoulder Exercises-SportsMed Problem List/Past Medical History Ongoing BMI 22.0-22.9, adult CAD (coronary artery disease) Family history of colon cancer History of colon polyps Hx of heart artery stent Hypercholesteremia Left shoulder pain Smoker Type 2 diabetes mellitus with hyperglycemia Type 2 diabetes mellitus with vascular disease Historical Body mass index (BMI) 24.0-24.9, adult Body mass index [BMI] 24.0-24.9, adult HTN - Hypertension HI Procedure/Surgical History Colonoscopy (03/11/2022), cardiac stent (11/24/2007), Colonoscopy. Medications aspirin 81 mg Chew Tab, 81 mg= 1 tab(s), Oral, Daily, 3 refills atorvastatin, 80 mg, Oral, Daily handicap placard, See Instructions Janumet XR 50 mg-1000 mg oral tablet, extended release, 1 tab(s), Oral, BID, 3 refills lisinopril 2.5 mg Tab, 2.5 mg, Oral, Daily, 3 refills metoprolol 100 mg ER Tab, 100 mg= 1 tab(s), Oral, Daily omeprazole 20 mg Cap-DR, 20 mg= 1 cap(s), Oral, Daily, 3 refills Ozempic 2 mg/1.5 mL (0.25 mg or 0.5 mg dose) subcutaneous solution, 0.25 mg, SubCutaneous, qWeek, 3 refills Plavix, 75 mg, Oral, Daily Allergies No Known Allergies Social History Alcohol - No Risk, 02/03/2014 Substance Abuse - No Risk, (more content not included)... Normal [facility] Comment on above: Result Comment: Elec tronically Signed By: Lillie Edgar MD\.br\Date and Time Signed: 05/27/22 10:36 EST\.br\Electronically Co-Signed By: Aubrey Guevara\.br\Date and Time Co-Signed: 05/26/22 16:26 EST Outside Diabetes Eye Examon 05-27-2022 Outside Diabetes Eye Exam [id number]:127 Normal [facility] Pre-Certification Formon Pre-Certification Form [id number]:127 Normal [facility] Ambulatory Visit Summaryon 0 05-26-2022 Ambulatory Visit Summary BOBY LANCASTER :1960 Visit Date:05/26/2022 Ambulatory Visit Instructions Your Diagnosis Left shoulder pain Diabetes mellitus treated with oral medication Type 2 diabetes mellitus with hyperglycemia Type 2 diabetes mellitus with vascular disease Acid reflux BMI 24.0-24.9, adult Smoker Your Care Team Attending Physician - Lillie Edgar MD Primary Care Physician - Jeanine WAYNE MD This Is Your Medications List metformin-sitagliptin (Janumet XR 50 mg-1000 mg oral tablet, extended release) omeprazole (omeprazole 20 mg Cap-DR) semaglutide (Ozempic 2 mg/1.5 mL (0.25 mg or 0.5 mg dose) subcutaneous solution) Contact prescribing physician if questions or concerns Misc Prescription (handicap placard) aspirin (aspirin 81 mg Chew Tab) atorvastatin clopidogrel (Plavix) lisinopril (lisinopril 2.5 mg Tab) metoprolol (metoprolol 100 mg ER Tab) Procedures Performed Colonoscopy (03/11/2022), cardiac stent (11/24/2007), Colonoscopy. Discharge Vitals Heart Rate (Peripheral) 72 Blood Pressure 118/76 Height 172 cm Height 68 in Weight 71.9 kg Weight 158.18 lb BMI 24.3 What to do next Scheduled Follow-Up Appointments Monday 5:00 PM EST With: Where: [facility] Monday 3:40 PM EDT With: Lillie Edgar MD Where: [facility] [place] Normal [facility] CHEMISTRYOrdered By: SYSTEM SYSTEM on 08-25-2021 Anion gap [Moles/Vol] 13 mmol/L Normal 6 - 16 mEq/L [facility] Remisol Calcium [Mass/Vol] 9.3 mg/dL Normal 8.9 - 11. 1 mg/dL [facility] Remisol Chloride [Moles/Vol] 102 mmol/L Normal 101 - 111 mmol/L [facility] Remisol Cholesterol [Mass/Vol] 163 mg/dL Normal 120 - 200 mg/dL [facility] Remisol Cholesterol in HDL [Mass/Vol] 49 mg/dL Invalid Interpretation Code [facility] Remisol Cholesterol in LDL [Mass/Vol] 96 mg/dL Normal <=129mg/dL [facility] Remisol Cholesterol in VLDL [Mass/Vol] 32 mg/dL Normal 7 - 40 mg/dL [facility] Remisol CO2 [Moles/Vol] 27 mmol/L Normal 21 - 31 mmol/L [facility] Remisol Creatinine [Mass/Vol] 1.3 mg/dL Normal 0.5 - 1.3 mg/dL [facility] Remisol GFR/1.73 sq M.predicted among blacks MDRD (S/P/Bld) [Vol rate/Area] mL/min/1.73 m2 Normal >=59mL/min/1.7 3 m2 [facility] GFR/1.73 sq M.predicted among non-blacks MDRD (S/P/Bld) [Vol rate/Area] 56 mL/min/1.73 m2 Low >=59mL/min/1.7 3 m2 [facility] Chem S Glucose [Mass/Vol] 120 mg/dL Normal 55 - 199 mg/dL [facility] Remisol Potassium [Moles/Vol] 4.6 mmol/L Normal 3.5 - 5.3 mmol/L [facility] Remisol Sodium [Moles/Vol] 137 mmol/L Normal 135 - 145 mmol/L [facility] Remisol Triglyceride [Mass/Vol] 158 mg/dL High <=149mg/dL [facility] Remisol Urea nitrogen [Mass/Vol] 25 mg/dL High 5 - 21 mg/dL [facility] Remisol Urea nitrogen/Creatinine [Mass ratio] 19 mg/mg Normal 10 - 20 [facility] Remisol CHEMISTRYOrdered By: Hayley Shepherd on 08-25-2021 HbA1c (Bld) [Mass fraction] 7.7 % High <=5.9% [facility] ChemAutoSS Discharge Summaryon 11-24-19 Discharge Summary MR[id number]y [facility] Admitted: 11/02/2016 Discharged: 11/04/2016 Date of : 1960 Physician: Festus Roberson M.D. DISCHARGE SUMMARYDISCHARGE SERVICE: CCU.PRIMARY DIAGNOSES:1. Unstable angina.2. Coronary artery disease, status post bare-metal stent in proximal left anterior descending in 2007.SECONDARY DIAGNOSES:1. Hypertension.2. Hyperlipidemia.3. Nicotine dependence, current smoker.4. Diabetes mellitus type 2.5. Hypertriglyceridemia.PROCE DURES THAT WERE DONE:1. Left heart coronary catheterization with stents, drug-eluting stents placed in the LAD and LCX.CONSULTS: None.HOSPITAL COURSE: The patient is a 56-year-old male, who presented fromCardiology Clinic with intermittent chest pain, chest tightness. He hadbeen having this pain for multiple days, but it had recently increased infrequency. He was admitted to the CCU service. Trending of 3 consecutivetroponins 6 hours apart showed no elevation in cardiac enzymes and it wasdetermined that with his unstable angina, he would receive cardiaccatheterization. He went for cardiac catheterization on day 2 ofadmission. One drug-eluting stent was placed in the LAD and a seconddrug-eluting stent was placed in the left circumflex artery. The patienttolerated the procedure well. During this admission, hemoglobin A1c andlipid panel was tested. The patient's A1c was 10.3, and we started him oninsulin with a plan to discharge him on oral metformin and with closefollowup with his PCP. The patient was also started on atorvastatin due tohis elevated cholesterol and lipids. The patient remained chest pain freethroughout his hospitalization and was ambulating without difficulty orsignificant pain on the morning of his discharge.CONDITION AT DISCHARGE: The patient was stable at discharge and in goodcondition.DISCHARGE DISPOSITION: To home.DISCHARGE INSTRUCTIONS:1. The patient was instructed to follow up with Cardiology in approximately 2 weeks after discharge. He was educated about the importance of continuing his medications as prescribed, especially aspirin and Plavix.2. The patient was instructed to follow up with his primary care physician within 2 weeks of his discharge to discuss further management of his diabetes and further management of his hyperlipidemia.DISCHARGE MEDICATIONS: Metoprolol tartrate 100 mg tablet one tablet bymouth 2 times per day; nitroglycerin 0.4 mg sublingual tablet 1 tabletsublingually as needed for chest pain, may repeat every 5 minutes, but peakmedical help with pain persists after 3 tablets; aspirin 81 mg tablet onetablet oral daily; atorvastatin calcium 80 mg tablet 1 tablet oral daily;Clopidogrel bisulfate 75 mg tablet one tablet oral daily; metformin HCL 500mg tablet one tablet oral 2 times per day, start 2 days after dischargefrom hospital; nicotine patch 21 mg per 24 hours, one patch transdermaldaily; Bisbee-3 fatty acids 1000 mg capsule one tablet oral 3 times per day;[place]bee-3 fatty acid; fish oil 1000 mg capsule one capsule oral every day.Reviewed By:Alyssa Kaiser MD 11/25/2016 02:33 PElectronically Signed by:Festus Roberson M.D. 12/14/2016 04:07 P Festus Roberson M.D. I have reviewed this discharge summary and confirmed the resident'sdocumentation. Please note that there may be additional documentation fromme. Date Dict: 11/07/2016/12:06 P/Sandy Gardner Trans: 11/23/2016 07:46 A/Josie_JN:[id number]: Jeanine Wayne M.D. [address] [place] [id number] Marcy Saha M.D. [place] Office Dept. Of Cardiology [facility] [address] Normal [facility] Cardiovascular Lab Reporton 11-15-2016 Cardiovascular Lab Report [facility] Patient Name: Boby Lancaster [facility] #: [id number] Physician: Maxine Guzmán M.D.Department of Service Date: 11/03/2016Medicine Birthdate: 2Division of Room #: 3CD [id number] CardiovascularServicesUniv [facility], [place] [address]Gvfhl Fax Cardiovascular Laboratory ReportFINAL IMPRESSIONS: 1. Severe in-stent restenosis of the left anterior descending and de teagan stenosis successfully treated by balloon angioplasty and Synergy drug-eluting stent placement. 2. Severe de teagan stenosis of the left circumflex coronary artery successfully treated by balloon angioplasty and Synergy drug-eluting stent placement. 3. Mild disease of the right coronary artery.RECOMMENDATIONS: 1. Aspirin 81 mg life-long. 2. Plavix 75 mg daily for a minimum of 6 months, preferably long-term. 3. Aggressive cardiovascular risk factor modification. 4. Optimization of medical management; a beta-emili, a statin, and an angiotensin-converting enzyme inhibitor are indicated. 5. Further recommendations deferred to the inpatient services; the patient will follow up with Dr. Guzmán in the [place] office 2-3 weeks post discharge.PROCEDURES: 1. Limited femoral angiography. 2. Bilateral selective coronary angiography. 3. Percutaneous balloon angioplasty and drug-eluting stent placement in the left anterior descending coronary artery. 4. Percutaneous balloon angioplasty and drug-eluting stent placement in the left circumflex coronary artery. 5. Placement of a 6-Somali Mynxgrip closure device.METHODS:After risks, benefits, and alternatives were explained, written informedconsent was obtained. The patient was prepped and draped in the usualsterile fashion over both groins. Using 1% lidocaine solution, localinfiltration anesthesia was achieved. Using a modified Seldingertechnique, access to the right common femoral artery was obtained utilizinga micropuncture kit. A 6-Somali 11 cm sheath was exchanged in withoutdifficulty. Baseline femoral angiography was performed.Bilateral selective coronary angiography was performed using a JL4 and NB3yttoigqxx. After reviewing the images, it was elected to proceed with aninterventional procedure.A 6-Somali XB3.5 guide catheter was advanced over a J-tipped guidewire andcoaxillary engaged into the left main coronary ostium. A 0.014 runthroughNS wire was advanced through the catheter across the suspect stenosis inthe left anterior descending and positioned distally. Balloon angioplastywas performed using a 3.0 x 20 mm noncompliant balloon. An inadequateresult was treated using a 3.0 x 38 mm Synergy drug-eluting stent in thedistal portion of the stenosis and a 3.5 x 16 mm stent in the proximalportion with attention paid to ensure overlap of stent margins. Repeatimaging showed an optimal result. The wire was removed and redirected intothe left circumflex coronary artery.Balloon angioplasty was performed using the 2.5 x 8 mm noncompliantballoon. An inadequate result was treated using the 2.75 x 12 mm Synergydrug-eluting stent. Repeat images showed an optimal result. The wire wasremoved. Final images in orthogonal views showed LUISITO-III flow with nodissection, thrombus, or distal wire trauma.At this point it was elected to conclude the procedure.A 6-Somali Mynxgrip closure device was deployed per protocol achievingoptimal hemostasis. Overall, the patient tolerated the procedure well.There were no overt complications. He was to be transferred to hishospital room in stable condition.FINDINGS:HEMODYN AMICS:AO 135/92.LEFT VENTRICULOGRAPHY:This was not performed.CORONARY ARTERIES:Left main coronary artery: This arises from the left coronary cusp butbifurcates into the left anterior descending and left circumflex coronaryarteries. It shows mild plaque disease.Left anterior descending coronary artery: Baseline imaging shows a longsegment 70% to 80% in-stent restenosis in a previously placed stent,followed by a short segment 80% de teagan stenosis in the midportion. Thesestenoses were reduced to 0% by balloon angioplasty and placement ofoverlapping 3.5 x 16 and 3.0 x 38 mm Synergy drug-eluting stents fromproximal to distal. Final images showed LUISITO-III flow with no dissection,thrombus, or distal wire trauma. The adjacent diagonal showed diffuseplaque with caliber reduction.Left circumflex coronary artery: Baseline imaging shows a discrete 85%stenosis just distal to a moderate to large second obtuse marginal branch.These was reduced to 0% by balloon angioplasty and placement of a 2.75 x 12mm Synergy drug-eluting stent. Final images showed LUISITO-III flow with nodissection, thrombus, or distal wire trauma. The proximal to mid leftcircumflex shows a short segment 40% to 50% stenosis that was leftuntreated.Right coronary artery: This is a dominant vessel of small caliber, givenrise to the posterior descending and posterolateral branches. It shows nosignificant stenoses with diffuse caliber reduction and plaque disease inthe posterior circulation.LIMITED FEMORAL ANGIOGRAPHY:This shows moderate plaque disease at the site of the sheath and anatomysuitable for a Mynxgrip closure device.INDICATIONS:Unstabl e angina.Electronically Signed by:Maxine Guzmán M.D. 12/14/2016 02:31 P Maxine Guzmán M.D.Date Dict: 11/10/2016//Maxine Guzmán M.D.Date Trans: 11/15/2016 12:32 P/Reina_JN:[id number]/cc: Jeanine Wayne M.D. [address] [place] [id number] Marcy Saha M.D. [place] [facility] Dept. Of Cardiology [facility] [address] Normal [facility] BASIC METABOLIC PANELon 07-0 Calcium 9.0 mg/dL Normal 8.6-10.3 [facility] Comment on above: Order Comment: No: D o not add to previous draw Performed By: #### 3 5200, 40724, 32424 ####[facility] [place] [address], [facility] Chloride 99 mmol/L Normal 98-107 [facility] Comment on above: Order Comment: No: D o not add to previous draw Performed By: #### 3 5200, 40428, 22792 ####[facility] [place] [address], [facility] CO2 26 mmol/L Normal 21-31 [facility] Comment on above: Order Comment: No: D o not add to previous draw Performed By: #### 3 5200, 95349, 77317 ####[facility] [place] [address], [facility] Creatinine 0.94 mg/dL Normal 0.70-1.30 [facility] Comment on above: Order Comment: No: D o not add to previous draw Performed By: #### 3 5200, 01704, 01463 ####[facility] [place] [address], [facility] eGFR (black) mL/min/{1.73_m2} Normal >60 [facility] Comment on above: Order Comment: No: D o not add to previous draw Performed By: #### 3 5200, 65608, 48101 ####[facility] [place] [address], [facility] eGFR (non-black) mL/min/{1.73_m2} Normal >60 [facility] Comment on above: Order Comment: No: D o not add to previous draw Performed By: #### 3 5200, 26365, 70153 ####[facility] [place] [address], [facility] Glucose mass conc 209 mg/dL High 70-100 [facility] Comment on above: Order Comment: No: D o not add to previous draw Performed By: #### 3 5200, 93114, 59731 ####[facility] [place] [address], [facility] Potassium molar conc 4.1 mmol/L Normal 3.5-5.1 [facility] Comment on above: Order Comment: No: D o not add to previous draw Performed By: #### 3 5200, 25945, 02693 ####[facility] [place] [address], [facility] Sodium 133 mmol/L Low 136-145 [facility] Comment on above: Order Comment: No: D o not add to previous draw Performed By: #### 3 5200, 93091, 00080 ####[facility] Urea nitrogen 13 mg/dL Normal 7-25 [facility] Comment on above: Order Comment: No: D o not add to previous draw Performed By: #### 3 5200, 56424, 97351 ####[facility] [facility].[address] CBC W/DIFFon 11-04-2016 Basophils Auto #/vol (Bld) 0.4 % Normal 0.0-2.0 [facility] Comment on above: Order Comment: No: D o not add to previous draw Performed By: #### 3 5200, 49943, 71188 ####[place] [id number] [address] Eosinophils/100 leukocytes 4.0 % Normal 0.0-5.0 [facility] Comment on above: Order Comment: No: D o not add to previous draw Performed By: #### 3 5200, 62596, 75138 ####[facility] [facility].[address] Erythrocyte distribution width Auto Ratio (RBC) 14.1 % Normal 11.5-16.9 [facility] Comment on above: Order Comment: No: D o not add to previous draw Performed By: #### 3 5200, 68901, 40746 ####[place] [id number] [facility].[address] Erythrocytes (RBC) 4.82 mill/mm3 Normal 4.30-5.90 [facility] Comment on above: Order Comment: No: D o not add to previous draw Performed By: #### 3 5200, 76745, 16974 ####[facility] [facility].[address] Hematocrit (HCT) 41.7 % Normal 39.0-55.0 [facility] Comment on above: Order Comment: No: D o not add to previous draw Performed By: #### 3 5200, 97641, 01711 ####[facility] Hemoglobin mass conc (Bld) 13.8 g/dL Low 13.9-16.3 [facility] Comment on above: Order Comment: No: D o not add to previous draw Performed By: #### 3 5200, 10694, 96972 ####[facility] [place] [address], [facility] Lymphocytes/100 leukocytes 15.0 % Low 20.0-40.0 [facility] Comment on above: Order Comment: No: D o not add to previous draw Performed By: #### 3 5200, 93435, 11725 ####[facility] MCH 28.7 pg Normal 24.0-32.0 [facility] Comment on above: Order Comment: No: D o not add to previous draw Performed By: #### 3 5200, 27117, 60959 ####[facility] MCHC mass conc (RBC) 33.2 g/dL Normal 32.0-36.0 [facility] Comment on above: Order Comment: No: D o not add to previous draw Performed By: #### 3 5200, 84736, 41689 ####[facility] MCV 86.6 fL Normal 80.0-100.0 [facility] Comment on above: Order Comment: No: D o not add to previous draw Performed By: #### 3 5200, 44752, 66973 ####[facility] [place] [address], [facility] METHOD Normal [facility] Comment on above: Order Comment: No: D o not add to previous draw Result Comment: Auto mated differential performedNormal RBC Morphology Performed By: #### 3 5200, 44201, 19431 ####[facility] [place] [address], [facility] MONOS 10.3 % High 2-8 [facility] Comment on above: Order Comment: No: D o not add to previous draw Performed By: #### 3 5200, 98028, 30164 ####[facility] [place] [address], [facility] Neutrophils/100 leukocytes 70.3 % High 50-70 [facility] Comment on above: Order Comment: No: D o not add to previous draw Performed By: #### 3 5200, 36963, 19821 ####[facility] [place] [address], [facility] PLAT CNT 224 Thou/mm3 Normal 100-400 [facility] Comment on above: Order Comment: No: D o not add to previous draw Performed By: #### 3 5200, 87799, 96668 ####[facility] [place] [address], [facility] WBC (Leukocytes) 8.1 Thou/mm3 Normal 4.0-10.0 [facility] Comment on above: Order Comment: No: D o not add to previous draw Performed By: #### 3 5200, 87484, 87181 ####[facility] [place] [address], [facility] MAGNESIUM BLOODon 11-04-2016 Magnesium 1.8 mg/dL Low 1.9-2.7 [facility] Comment on above: Order Comment: No: D o not add to previous draw Performed By: #### 3 5200, 26348, 19900 ####[facility] [place] [address], [facility] POC GLUCOSE LABon 11-04-2016 Glucose mass conc 237 mg/dL High 70-100 [facility] Comment on above: Performed By: #### 3 5200, 21451, 47952 ####[facility] [place] [address], [facility] Glucose mass conc 207 mg/dL High 70-100 [facility] Comment on above: Performed By: #### 3 5200, 51464, 58286 ####[facility] [place] [address], [facility] BASIC METABOLIC PANELon 07-0 -2016 Calcium 9.3 mg/dL Normal 8.6-10.3 [facility] Comment on above: Order Comment: No: D o not add to previous draw Performed By: #### 0 0071, 94835, 60565, 59595 ####[facility] [place] [address], [facility] Chloride 100 mmol/L Normal 98-107 [facility] Comment on above: Order Comment: No: D o not add to previous draw Performed By: #### 0 0071, 02362, 23417, 76445 ####[facility] [place] [address], [facility] CO2 26 mmol/L Normal 21-31 [facility] Comment on above: Order Comment: No: D o not add to previous draw Performed By: #### 0 0071, 04607, 70165, 73025 ####[facility] [place] [address], [facility] Creatinine 1.06 mg/dL Normal 0.70-1.30 [facility] Comment on above: Order Comment: No: D o not add to previous draw Performed By: #### 0 0071, 97287, 45200, 18201 ####[facility] [place] [address], [facility] eGFR (black) mL/min/{1.73_m2} Normal >60 [facility] Comment on above: Order Comment: No: D o not add to previous draw Performed By: #### 0 0071, 50709, 89124, 63065 ####[facility] eGFR (non-black) mL/min/{1.73_m2} Normal >60 [facility] Comment on above: Order Comment: No: D o not add to previous draw Performed By: #### 0 0071, 54599, 10791, 10470 ####[facility] Glucose mass conc 275 mg/dL High 70-100 [facility] Comment on above: Order Comment: No: D o not add to previous draw Performed By: #### 0 0071, 06508, 87761, 91943 ####[facility] Potassium molar conc 4.2 mmol/L Normal 3.5-5.1 [facility] Comment on above: Order Comment: No: D o not add to previous draw Performed By: #### 0 0071, 46191, 94882, 20806 ####[facility] Sodium 134 mmol/L Low 136-145 [facility] Comment on above: Order Comment: No: D o not add to previous draw Performed By: #### 0 0071, 74739, 40147, 86086 ####[facility] Urea nitrogen 18 mg/dL Normal 7-25 [facility] Comment on above: Order Comment: No: D o not add to previous draw Performed By: #### 0 0071, 22162, 83010, 57470 ####[facility] CBC W/DIFFon 11-03-2016 Basophils Auto #/vol (Bld) 0.9 % Normal 0.0-2.0 [facility] Comment on above: Order Comment: No: D o not add to previous draw Performed By: #### 5 0103 ####[facility] [place] [address], [facility] Eosinophils/100 leukocytes 4.6 % Normal 0.0-5.0 [facility] Comment on above: Order Comment: No: D o not add to previous draw Performed By: #### 5 0103 ####[facility] Erythrocyte distribution width Auto Ratio (RBC) 13.9 % Normal 11.5-16.9 [facility] Comment on above: Order Comment: No: D o not add to previous draw Performed By: #### 5 3 ####[facility] [facility].[address] Erythrocytes (RBC) 4.88 mill/mm3 Normal 4.30-5.90 [facility] Comment on above: Order Comment: No: D o not add to previous draw Performed By: #### 5 3 ####[facility] [facility].[address] Hematocrit (HCT) 42.1 % Normal 39.0-55.0 [facility] Comment on above: Order Comment: No: D o not add to previous draw Performed By: #### 5 3 ####[facility] [facility] [place] [address], [facility] Hemoglobin mass conc (Bld) 14.2 g/dL Normal 13.9-16.3 [facility] Comment on above: Order Comment: No: D o not add to previous draw Performed By: #### 5 3 ####[facility] [place] [address], [facility] Lymphocytes/100 leukocytes 38.5 % Normal 20.0-40.0 [facility] Comment on above: Order Comment: No: D o not add to previous draw Performed By: #### 5 3 ####[facility] [place] [address], [facility] MCH 29.0 pg Normal 24.0-32.0 [facility] Comment on above: Order Comment: No: D o not add to previous draw Performed By: #### 5 0103 ####[facility] MCHC mass conc (RBC) 33.7 g/dL Normal 32.0-36.0 [facility] Comment on above: Order Comment: No: D o not add to previous draw Performed By: #### 5 0103 ####[facility] MCV 86.2 fL Normal 80.0-100.0 [facility] Comment on above: Order Comment: No: D o not add to previous draw Performed By: #### 5 0103 ####[facility] [place] [address], [facility] METHOD Normal [facility] Comment on above: Order Comment: No: D o not add to previous draw Result Comment: Auto mated differential performedNormal RBC Morphology Performed By: #### 5 0103 ####[facility] [place] [address], [facility] MONOS 8.4 % High 2-8 [facility] Comment on above: Order Comment: No: D o not add to previous draw Performed By: #### 5 0103 ####[facility] [place] [address], [facility] Neutrophils/100 leukocytes 47.6 % Low 50-70 [facility] Comment on above: Order Comment: No: D o not add to previous draw Performed By: #### 5 0103 ####[facility] [place] [address], [facility] PLAT CNT 259 Thou/mm3 Normal 100-400 [facility] Comment on above: Order Comment: No: D o not add to previous draw Performed By: #### 5 0103 ####[facility] [place] [address], [facility] WBC (Leukocytes) 9.5 Thou/mm3 Normal 4.0-10.0 [facility] Comment on above: Order Comment: No: D o not add to previous draw Performed By: #### 5 0103 ####[facility] LIPID PROFILEon 11-03-2016 Cholesterol 264 mg/dL High 120-200 [facility] Comment on above: Order Comment: No: D o not add to previous draw Result Comment: CHOL ESTEROL REFERENCE RANGE:20 YEARS AND OLDER CARDIOVASCULAR RISKLess than 200 mg/dl Low Rdbh805 to 239 mg/dl Borderline Glki527 mg/dl and greater High Risk Performed By: #### 0 0071, 96362, 52274, 69827 ####[facility] [facility] [place] [address], [facility] Cholesterol to HDL Ratio 6.8 {ratio} High .0-4.5 [facility] Comment on above: Order Comment: No: D o not add to previous draw Performed By: #### 0 0071, 51458, 74848, 21030 ####[facility] [facility] [place] [address], [facility] HDL Cholesterol 39 mg/dL Normal 23-92 [facility] Comment on above: Order Comment: No: D o not add to previous draw Result Comment: Slig ht variation in normal range could be due to gender and/or age.HDL CHOLESTEROL REFERENCE RANGE:20 years and older Cardiovascular Risk> or =60 mg/dL Husydphmm96 TO 59 mg/dL Low Risk<40 mg/dL High Risk Performed By: #### 0 0071, 93559, 80093, 24410 ####[facility] [place] [address], [facility] LDL Cholesterol 93 mg/dL Normal 0-130 [facility] Comment on above: Order Comment: No: D o not add to previous draw Result Comment: LDL IS A CALCULATIONLDL IS ONLY VALID IF THE TRIG IS LESS THAN 400. Performed By: #### 0 0071, 34846, 54182, 38695 ####[facility] NON-HDL CHOLESTEROL 225 mg/dL Normal [facility] Comment on above: Order Comment: No: D o not add to previous draw Performed By: #### 0 0071, 45971, 82699, 89908 ####[facility] Triglyceride 661 mg/dL High 40-149 [facility] Comment on above: Order Comment: No: D o not add to previous draw Result Comment: TRIG LYCERIDE REFERENCE RANGE:20 YEARS AND OLDER CARDIOVASCULAR RISKLESS THAN 150 mg/dl LOW [id number] TO 199 mg/dl BORDERLINE [id number] mg/dl AND GREATER HIGH RISK Performed By: #### 0 0071, 40625, 70453, 50352 ####[facility] VLDL CHOL 132 mg/dL High 0-40 [facility] Comment on above: Order Comment: No: D o not add to previous draw Performed By: #### 0 0071, 60004, 56805, 01611 ####[facility] [place] [address], [facility] MAGNESIUM BLOODon 11-03-2016 Magnesium 1.8 mg/dL Low 1.9-2.7 [facility] Comment on above: Performed By: #### 0 0071, 98062, 87690, 43955 ####[facility] [place] [address], [facility] POC GLUCOSE LABon 11-03-2016 Glucose mass conc 201 mg/dL High 70-100 [facility] Comment on above: Performed By: #### 3 5200, 64706, 11561 ####[facility] [facility] [place] [address], [facility] Glucose mass conc 143 mg/dL High 70-100 [facility] Comment on above: Performed By: #### 3 5200, 20499, 63856 ####[facility] [place] [address], [facility] Glucose mass conc 247 mg/dL High 70-100 [facility] Comment on above: Performed By: #### 3 5200, 57896, 97288 ####[facility] [facility] [place] [address], [facility] TROPONIN-Ion 11-03-2016 Troponin I.cardiac mass conc 0.00 ng/mL Normal 0.00-0.04 [facility] Comment on above: Order Comment: No: D o not add to previous draw Result Comment: REFE RENCE RANGES: 0.00 - 0.14 ng/ml NEGATIVE 0.15 - 0.25 ng/ml INDETERMINATE > 0.25 ng/ml INDICATIVE OF AN M.I. Performed By: #### 3 5200, 14870, 49144 ####[facility] [facility].[address] [address] Troponin I.cardiac mass conc 0.00 ng/mL Normal 0.00-0.04 [facility] Comment on above: Result Comment: REFE RENCE RANGES: 0.00 - 0.14 ng/ml NEGATIVE 0.15 - 0.25 ng/ml INDETERMINATE > 0.25 ng/ml INDICATIVE OF AN M.I. Performed By: #### 0 0071, 22113, 37398, 67256 ####[facility] [facility].[address] UFH HEPARIN ASSAYon 11-04-19 17 UNFRACTIONATED HEPARIN 0.51 IU/mL Normal 0.30-0.70 [facility] Comment on above: Result Comment: [place] roxaban and Apixaban will interfere with the anti Xa assay used tomonitor UFH and LMWH. Performed By: #### 3 5200, 36183, 38119 ####[facility] UNFRACTIONATED HEPARIN 0.41 IU/mL Normal 0.30-0.70 [facility] Comment on above: Result Comment: Barb roxaban and Apixaban will interfere with the anti Xa assay used tomonitor UFH and LMWH. Performed By: #### 3 5200, 65411, 08653 ####[facility] BASIC METABOLIC PANELon 07-0 -2016 Calcium 9.6 mg/dL Normal 8.6-10.3 [facility] Comment on above: Order Comment: No: D o not add to previous draw Performed By: #### 3 5200, 22312, 06529 ####[facility] Chloride 99 mmol/L Normal 98-107 [facility] Comment on above: Order Comment: No: D o not add to previous draw Performed By: #### 3 5200, 09243, 81722 ####[facility] [facility] CO2 25 mmol/L Normal 21-31 [facility] Comment on above: Order Comment: No: D o not add to previous draw Performed By: #### 3 5200, 82333, 55948 ####[facility] [place] [address], [facility] Creatinine 0.98 mg/dL Normal 0.70-1.30 [facility] Comment on above: Order Comment: No: D o not add to previous draw Performed By: #### 3 5200, 53705, 74033 ####[facility] eGFR (black) mL/min/{1.73_m2} Normal >60 [facility] Comment on above: Order Comment: No: D o not add to previous draw Performed By: #### 3 5200, 36599, 87006 ####[facility] [place] [address], [facility] eGFR (non-black) mL/min/{1.73_m2} Normal >60 [facility] Comment on above: Order Comment: No: D o not add to previous draw Performed By: #### 3 5200, 06649, 34832 ####[facility] [place] [address], [facility] Glucose mass conc 229 mg/dL High 70-100 [facility] Comment on above: Order Comment: No: D o not add to previous draw Performed By: #### 3 0, 47006, 22304 ####[facility] [place] [address], [facility] Potassium molar conc 3.9 mmol/L Normal 3.5-5.1 [facility] Comment on above: Order Comment: No: D o not add to previous draw Performed By: #### 3 0, 79584, 79752 ####[facility] [place] [address], [facility] Sodium 134 mmol/L Low 136-145 [facility] Comment on above: Order Comment: No: D o not add to previous draw Performed By: #### 3 5200, 21469, 98697 ####[facility] [place] [address], [facility] Urea nitrogen 14 mg/dL Normal 7-25 [facility] Comment on above: Order Comment: No: D o not add to previous draw Performed By: #### 3 5200, 66346, 84049 ####[facility] [place] [address], [facility] CBC COMPLETE BLOOD COUNTon 0 11-02-2016 Erythrocyte distribution width Auto Ratio (RBC) 13.9 % Normal 11.5-16.9 [facility] Comment on above: Order Comment: No: D o not add to previous draw Performed By: #### 5 0608 ####[facility] [facility].[address] Erythrocytes (RBC) 5.16 mill/mm3 Normal 4.30-5.90 [facility] Comment on above: Order Comment: No: D o not add to previous draw Performed By: #### 5 0608 ####[facility] [facility].[address] Hematocrit (HCT) 44.6 % Normal 39.0-55.0 [facility] Comment on above: Order Comment: No: D o not add to previous draw Performed By: #### 5 0608 ####[facility] [facility].[address] Hemoglobin mass conc (Bld) 15.0 g/dL Normal 13.9-16.3 [facility] Comment on above: Order Comment: No: D o not add to previous draw Performed By: #### 5 0608 ####[facility] [facility].[address] MCH 29.1 pg Normal 24.0-32.0 [facility] Comment on above: Order Comment: No: D o not add to previous draw Performed By: #### 5 0608 ####[facility] [facility].[address] MCHC mass conc (RBC) 33.8 g/dL Normal 32.0-36.0 [facility] Comment on above: Order Comment: No: D o not add to previous draw Performed By: #### 5 0608 ####[facility] MCV 86.3 fL Normal 80.0-100.0 [facility] Comment on above: Order Comment: No: D o not add to previous draw Performed By: #### 5 0608 ####[facility] PLAT CNT 262 Thou/mm3 Normal 100-400 [facility] Comment on above: Order Comment: No: D o not add to previous draw Performed By: #### 5 0608 ####[address] WBC (Leukocytes) 9.9 Thou/mm3 Normal 4.0-10.0 [facility] Comment on above: Order Comment: No: D o not add to previous draw Performed By: #### 5 0608 ####[address] CHEST AND LATERALon 11-03-19 [facility]ST AND LATERAL [facility] [address] [place], [place] [address] Tabitha ent Name: BOBY LANCASTER : 1960ex: MAge: Race: WhiteMRN: [id number]. Location: [id number] Status: DVisit #: [id number] Date: 11/02/2016 6:00:00 PMCompleted Date: 11/02/2016 08:08 PMRequesting Provider: ALYSSA KAISER Attending Provider: FESTUS ROBERSON Report Copy To: Signs & Symptoms: Chest PainHistory: Patient history not availableComments: R/O Infiltrates, when patient is stableExam: CHEST AND LATERALAccession #: [id number] ===CHEST AND LATERAL 11/02/2016 8:08 PM EDT SIGNS AND SYMPTOMS: Chest Pain; chest tightness x 3 weeks and hx of heart attack in 2007 and stent placed in 2007; R/O Infiltrates PROTOCOL: AP(PA) and Lateral views were obtained. COMPARISON: November 25, 2007 FINDINGS: The trachea is midline and the cardiomediastinal silhouette is within normal limits. Lung salgado and costophrenic sulci are clear. No pneumothorax or subdiaphragmatic free air. No acute osseous abnormality appreciated. IMPRESSION: * No radiographic evidence of acute cardiopulmonary disease. Approved by:Kulwant Curtis on 11/02/2016 8:15 PM EDT. I, Nicky Dominique, have reviewed the images and report and concur with these findings. Electronically signed by:Nicky Dominique. Transcribed by: [email or web address], User Resident: ROBIN CURTISElectronically Signed by: NICKY DOMINIQUE @ 11/04/2016 09:22 PMI personally read this/these film(s) with this resident Normal [facility] Comment on above: Order Comment: No: D o not add to previous draw HEMOGLOBIN A1Con 11-02-2016 Glucose mass conc 249 mg/dL High 70-126 [facility] Comment on above: Order Comment: No: D o not add to previous draw Performed By: #### 3 5200, 23535, 32204 ####[facility] [place] [address], [facility] Hemoglobin A1c/Hemoglobin.tota l mass fraction (Bld) 10.3 % High 4.0-6.0 [facility] Comment on above: Order Comment: No: D o not add to previous draw Performed By: #### 3 5200, 87652, 96695 ####[facility] [place] [address], [facility] MAGNESIUM BLOODon 11-02-2016 Magnesium 1.7 mg/dL Low 1.9-2.7 [facility] Comment on above: Order Comment: No: D o not add to previous draw Performed By: #### 3 5200, 01696, 72384 ####[facility] [facility].[address] PROTHROMBIN TIMEon 7 INR Coag RelTime (PPP) 0.90 {INR} Low 0.91-1.16 [facility] Comment on above: Order Comment: No: D o not add to previous draw Result Comment: ACCC P RECOMMENDED INR FOR WARFARIN THERAPY CONDITION INRPROPHYLAXIS OF VENOUS THROMBOSIS 2-3(HIGH-RISK SURGERY)TREATMENT OF VENOUS THROMBOSIS 2-3TREATMENT OF PULMONARY EMBOLISM 2-3PREVENTION OF SYSTEMIC EMBOLISM: 2-3 ACUTE MYOCARDIAL INFARCTION TISSUE HEART VALVES VALVULAR HEART DISEASE ATRIAL FIBRILLATION RECURRENT SYSTEMIC EMBOLISMMECHANICAL HEART VALVE 2.5-3.5 FROM: ORAL ANTICOAGULANTS. MECHANISM OF ACTION, CLINICALEFFECTIVENESS, AND OPTIMAL THERAPEUTIC RANGE. [id number]. Performed By: #### 5 6101 ####[facility] [facility].[address] Prothrombin time (PT) Coag time (PPP) 12.1 s Low 12.3-14.8 [facility] Comment on above: Order Comment: No: D o not add to previous draw Result Comment: ALL RESULTS MUST BE INTERPRETED WITH RESPECT TO BLOOD DRAWING ARTIFACTOR DILUTION ERROR OF ANTICOAGULANT AT THE TIME OF SAMPLING. Performed By: #### 5 6101 ####[facility] [facility] [place] [address], [facility] TROPONIN-Ion 11-02-2016 Troponin I.cardiac mass conc 0.00 ng/mL Normal 0.00-0.04 [facility] Comment on above: Order Comment: No: D o not add to previous draw Result Comment: REFE RENCE RANGES: 0.00 - 0.14 ng/ml NEGATIVE 0.15 - 0.25 ng/ml INDETERMINATE > 0.25 ng/ml INDICATIVE OF AN M.I. Performed By: #### 3 5200, 66199, 60570 ####[facility] Vital Signs Date Time Vital Sign Value Performing Clinician Alan long 04-18-2023 10:58-0500 Blood Pressure Location Lillie Gudimella [facility] 04-18-2023 10:58-0500 Diastolic blood pressure 72 mm[Hg] Lillie Gudimella [facility] 04-18-2023 10:58-0500 Heart rate 82 /min Lillie Gudimella [facility] 04-18-2023 10:58-0500 SaO2% (BldA) [Mass fraction] 98 % Lillie Gudimella [facility] 04-18-2023 10:58-0500 Systolic blood pressure 110 mm[Hg] Lillie Gudimella [facility] 01-19-2023 15:45-0400 Blood Pressure Location Lillie Gudimella [facility] 01-19-2023 15:45-0400 Diastolic blood pressure 60 mm[Hg] Lillie Gudimella [facility] 01-19-2023 15:45-0400 Heart rate 73 /min Lillie Gudimella [facility] 01-19-2023 15:45-0400 SaO2% (BldA) [Mass fraction] 92 % Lillie Gudimella [facility] 01-19-2023 15:45-0400 Systolic blood pressure 96 mm[Hg] Lillie Gudimella [facility] 07-22-2022 15:44-0400 Blood Pressure Location Lillie Gudimella [facility] 07-22-2022 15:44-0400 Diastolic blood pressure 70 mm[Hg] Lillie Gudimella [facility] 07-22-2022 15:44-0400 Heart rate 72 /min Lillie Gudimella [facility] 07-22-2022 15:44-0400 SaO2% (BldA) [Mass fraction] 94 % Lillie Gudimella [facility] 07-22-2022 15:44-0400 Systolic blood pressure 98 mm[Hg] Lillie Gudimella [facility] 07-11-2022 16:41-0400 Blood Pressure Location Danuta Damon [facility] 07-11-2022 16:41-0400 Diastolic blood pressure 70 mm[Hg] Danuta Castorenaofferson [facility] 07-11-2022 16:41-0400 Heart rate 78 /min Danuta Castorenaofferson [facility] 07-11-2022 16:41-0400 SaO2% (BldA) [Mass fraction] 93 % Danuta Medranoerson [facility] 07-11-2022 16:41-0400 Systolic blood pressure 100 mm[Hg] Danuta Christofferson [facility] 06-13-2022 14:43-0500 Blood Pressure Location Danuta Christofferson [facility] 06-13-2022 14:43-0500 Diastolic blood pressure 62 mm[Hg] Danuta Christofferson [facility] 06-13-2022 14:43-0500 Heart rate 67 /min Danuta Christofferson [facility] 06-13-2022 14:43-0500 SaO2% (BldA) [Mass fraction] 95 % Danuta Christofferson [facility] 06-13-2022 14:43-0500 Systolic blood pressure 96 mm[Hg] Danuta Christofferson [facility] 05-26-2022 13:45-0500 Blood Pressure Location Lillie Gudimella [facility] 05-26-2022 13:45-0500 Diastolic blood pressure 76 mm[Hg] Lillie Gudimella [facility] 05-26-2022 13:45-0500 Heart rate 72 /min Lillie Gudimella [facility] 05-26-2022 13:45-0500 SaO2% (BldA) [Mass fraction] 97 % Lillie Gudimella [facility] 05-26-2022 13:45-0500 Systolic blood pressure 118 mm[Hg] Lillie Gudimella [facility] 01-21-2022 12:49-0400 Diastolic blood pressure 80 mm[Hg] Irma Arthur [facility] 01-21-2022 12:49-0400 Mean blood pressure 100 mm[Hg] Irma Dhillonmetz [facility] 01-21-2022 12:49-0400 Systolic blood pressure 140 mm[Hg] Irma Dhillonmetz [facility] 01-21-2022 12:44-0400 Blood Pressure Location Irmabailey DhillonJerson [facility] 01-21-2022 12:44-0400 Body temperature 97.52 [degF] Irma Arthur [facility] 01-21-2022 12:44-0400 Diastolic blood pressure 72 mm[Hg] Irma Dhillonmetz [facility] 01-21-2022 12:44-0400 Heart rate 72 /min Irma Arthur [facility] 01-21-2022 12:44-0400 Systolic blood pressure 146 mm[Hg] Irma Arthur [facility] Encounters Encounter Date Encounter Type Care Provider Facility Start: 05-18-2023 ambulatory Lillie Gudimella Facili ty:[facility] Start: 05-08-2023 End: 05-08-2023 ambulatory [facility] Start: 04-18-2023 End: 04-19-2023 ambulatory Lillie Gudimella Facility:[facility] Start: 04-18-2023 End: 04-18-2023 Patient encounter procedure Lillie Gudimella [facility] [place] Start: 02-16-2023 ambulatory [facility] Start: 02-16-2023 End: 02-17-2023 ambulatory BLACK MARTINEZ Facility:[facility] Start: 02-16-2023 End: 02-16-2023 Patient encounter procedure BLACK ISABELAYSE [facility] Start: 01-19-2023 End: 01-20-2023 ambulatory Lillie Gudimella Facility:[facility] Start: 01-19-2023 End: 01-19-2023 Patient encounter procedure Lillie Gudimella [facility] Start: 12-31-2022 End: [facility] Start: 12-06-2022 End: 12-06-2022 ambulatory [facility] Start: 11-29-2022 End: 11-30-2022 ambulatory [facility] Facility[facility] Start: 11-29-2022 End: 11-29-2022 [facility] Start: 11-16-2022 End: 11-17-2022 ambulatory [facility] Facility:[facility] Start: 11-16-2022 End: 11-16-2022 [facility] Start: 10-24-2022 End: 10-24-2022 ambulatory [facility] Start: 07-22-2022 End: 07-23-2022 ambulatory Lillie Gudimella Facility:[facility] Start: 07-22-2022 End: 07-22-2022 Patient encounter procedure Lillie Gudimella [facility] Start: 07-22-2022 End: 07-22-2022 Well adult monitoring check done Lillie Gudimella [facility] Start: 07-11-2022 End: 07-12-2022 ambulatory Danuta Damon Facility:[facility] Start: 07-11-2022 End: 07-11-2022 Patient encounter procedure Danuta Damon [facility] Start: 06-29-2022 End: 06-29-2022 ambulatory DANUTA DAMON Facility:[facility] Start: 06-13-2022 End: 06-14-2022 ambulatory Danuta Damon Facility:[facility] Start: 06-13-2022 End: 06-13-2022 Patient encounter procedure Danuta Damon [facility] Start: 05-30-2022 End: 05-30-2022 ambulatory Danuta Damon Facility:[facility] Start: 05-30-2022 End: 05-30-2022 Evaluation and management of inpatient Danuta Damon Facility:[facility] Start: 05-30-2022 End: 05-31-2022 Pre-admission assessment Danuta Damon [facility] Start: 05-26-2022 End: 05-27-2022 ambulatory Lillie Guyuemella Facility:[facility] Start: 05-26-2022 End: 05-26-2022 Patient encounter procedure Lillie Gudimella [facility] Start: 01-21-2022 End: 01-21-2022 Patient encounter procedure Irma Arthur [facility] Start: 11-29-[address] MAXINE Tong ty:H1 Start: 08-25-2021 End: 08-25-2021 Patient encounter procedure Lillie Gudimella [facility] Start: 11-02-2016 End: 11-04-2016 Evaluation and management of inpatient FESTUS ROBERSON Facility:[facility] Start: 11-02-2016 End: 11-03-2016 Ambulatory DEFAULT PHYSICIAN Facility:[facility] Procedures Date Procedure Procedure Detail Performing Clinician Start: 03-11-2022 Colonoscopy Lillie Gud imella Comment on above: polyps x3, one clipp ed (10mm) , small IIH Start: 11-03-2016 DILATION OF 2 COR AR T WITH 3 DRUG-ELUT, PERC APPROACH EHAB A [place] Start: 11-24-2007 cardiac stent 1 Lillie Gudimella Comment on above: stent placed in LAD Start: 11-24-2007 cardiac stent 2 Lillie Gudimella Comment on above: stent placed in LAD Colonoscopy Irma Arthur History of placement of stent for coronary artery disease Hx of heart artery stent( Confirmed ) Lillie Gudimella Percutaneous coronar y intervention of right coronary artery Danuta Damon Comment on above: 3.0 mm x 23 mm Xienc e stent to mid RCA Immunizations Immunization Date Immunization Notes Care Provider Erlinda dockery 01-21-2023 influenza virus vaccine, unspecified formulation Lillie Gudimella [facility] 02-07-2022 influenza virus vaccine, unspecified formulation Lillie Gudimella [facility] 02-07-2022 SARS-CoV-2 (COVID-19 ) [id number] Lillie Gudimella [facility] 03-26-2021 influenza virus vaccine, unspecified formulation Lillie Gudimella [facility] 03-26-2021 SARS-CoV-2 (COVID-19 ) mRNA-1273 vaccine Lillie Gudimella [facility] 08-18-2020 SARS-CoV-2 (COVID-19 ) mRNA-1273 vaccine Lillie Gudimella [facility] Comment on above: Result Comment: WM Afia gamez 07-16-2020 SARS-CoV-2 (COVID-19 ) mRNA-1273 vaccine Lillie Gudimella [facility] Comment on above: Result Comment: WM Afia gamez 01-15-2020 influenza virus vaccine, unspecified formulation Lillie Gudimella [facility] 02-28-2017 influenza virus vaccine, unspecified formulation Irma Jerson [facility] 02-28-2017 pneumococcal polysaccharide vaccine, 23 valent Irma Jerson [facility] 06-06-2016 tetanus toxoid, redu jeremy diphtheria toxoid, and acellular pertussis vaccine, adsorbed Irma Jerson [facility] 12-25-2009 tetanus toxoid, redu jeremy diphtheria toxoid, and acellular pertussis vaccine, adsorbed Lillie Gudimella [facility] NEGATED: Highlighted row has not occurred!01-19-2023 influenza virus vaccine, unspecified formulation Lillie Gudimella [facility] [place] Payers Date Payer Category Payer [facility] [id number] 1960 Unknown [id number] 2.16.84 [id number] 1960 Unknown [id number] 2.16.8 [id number] 1960 Unknown [id number] 2.16.8 [id number] 1960 Unknown [id number] 2.16.8 [id number] 1960 Unknown [id number] 2.16.8 40.1.887639.3.579.2.727 1960 Unknown [id number] 2.16.8 40.1.531527.3.579.2.727 1960 Unknown [id number] 2.16.8 40.1.885039.3.579.2.727 1960 Unknown [id number] 2.16.8 40.1.812863.3.579.2.727 1960 Unknown [id number] 2.16.8 40.1.541641.3.579.2.727 1960 Unknown [id number] 2.16.8 40.1.618460.3.579.2.727 1960 Unknown [id number] 2.16.8 40.1.008620.3.579.2.727 1960 Unknown [id number] 2.16.8 40.1.020200.3.579.2.727 1960 Unknown [id number] 2.16.8 40.1.562236.3.579.2.727 1960 Unknown [id number] 2.16.8 40.1.326916.3.579.2.727 1960 Unknown [id number] 2.16.8 40.1.275757.3.579.2.727 1960 Unknown [id number] 2.16.8 [id number] 1957 Self-pay Unknown Social History Date Type Detail Facility Start: 06-02-2021 End: 01-19-2023 Tobacco smoking status Heavy tobacco smoker (finding) [facility] Tobacco smoking status Never Madie [facility] Sex Assigned At Male [facility] Start: 04-18-2023 Tobacco smoking status Ex-smoker (fi nding) [facility] Medical Equipment Procedure Code Equipment Code Equipment Origin al Text Equipment Identifier Dates Unknown Unknown 05/30/22 Non Biological Right Coronary Artery FDA Start: 05-30-2022 Comment on above: 3.0 mm x 23 mm Xienc e stent to mid RCA Unknown Unknown 05/30/22 Non Biological Right Coronary Artery FDA Start: 05-30-2022 Comment on above: 3.0 mm x 23 mm Xienc e stent to mid RCA Unknown Unknown 05/30/22 Non Biological Right Coronary Artery FDA Start: 05-30-2022 Comment on above: 3.0 mm x 23 mm Xienc e stent to mid RCA Unknown Unknown 05/30/22 Non Biological Right Coronary Artery FDA Start: 05-30-2022 Comment on above: 3.0 mm x 23 mm Xienc e stent to mid RCA Unknown Unknown 05/30/22 Non Biological Right Coronary Artery FDA Start: 05-30-2022 Comment on above: 3.0 mm x 23 mm Xienc e stent to mid RCA Unknown Unknown 05/30/22 Non Biological Right Coronary Artery FDA Start: 05-30-2022 Comment on above: 3.0 mm x 23 mm Xienc e stent to mid RCA Unknown Unknown 05/30/22 Non Biological Right Coronary Artery FDA Start: 05-30-2022 Comment on above: 3.0 mm x 23 mm Xienc e stent to mid RCA Unknown Unknown 05/30/22 Non Biological Right Coronary Artery FDA Start: 05-30-2022 Comment on above: 3.0 mm x 23 mm Xienc e stent to mid RCA Unknown Unknown 05/30/22 Non Biological Right Coronary Artery FDA Start: 05-30-2022 Comment on above: 3.0 mm x 23 mm Xienc e stent to mid RCA Unknown Unknown 05/30/22 Non Biological Right Coronary Artery FDA Start: 05-30-2022 Comment on above: 3.0 mm x 23 mm Xienc e stent to mid RCA Functional Status Date Assessment Result Facility 04-18-2023 Functional Status N/A [place] 01-19-2023 Functional Status N/A [place] 07-22-2022 Functional Status N/A [place] 07-11-2022 Functional Status No [facility] 06-13-2022 Functional Status No [facility] 05-26-2022 Functional Status N/A [place] 01-21-2022 Functional Status N/A [facility] Clinical Notes 01-21-2022 to 05-08-2023 Note Date & Type Note Facility 05-08-2023 Note Add lasix 20 mg deonte y and potassium 10 meq 1 tab daily for next 2-3 days for fluid overload. Sent pt to lab today to assess BNP, liver and renal function. Repeat BMP in 5-7 days to re-evaluate renal function for possible [facility] 05-08-2023 Note C/O OJEDA, weight gain and BLE edema will obtain echocardiogram to assess cardiac function, Rt sided pressures and valvular function; basic labs- CBC, BNP, CMP Add lasix to med regime. [facility] 05-08-2023 Note stable [facility] 05-08-2023 Note Coronary artery dise ase is stable Continue GDMT- ASA, lipitor, plavix, zetia, lisinopril, mettoprolol continue risk factor modifications- heart healthy diet, regular exercise as tolerated and continue all medications. [facility] 05-08-2023 Note Hypertension is well controlled 108/72. Continue all meds- toprol and lisinopril [facility] 05-08-2023 Note Continue statin [facility] 05-08-2023 Note [facility] CARDIOLOGY PROGR ESS NOTE HPI: Boby Lancaster is a 63 y.o. male here for routine F/U HPI 63 yo male presents today history of coronary artery disease, a chronic total occlusion of the left anterior descending coronary artery, here in follow-up. C/O 20 pound weight gain and leg swelling since cardiac caths. Denied chest pain, SOB or orthopnea. Denied palpitations, lightheadedness/dizziness or syncope. # CAD: s/p PCI to mLAD and RCA in the past and most recently PUBLIC SERVICES ASSISTANT PCI to LAD with PTCA only using 3.0 and 4.0 NC Emerge balloons c/b distal edge dissection that was treated with 3.0 x 20 mm Synergy XD. PCI with 4.0 x 20 mm Synergy JULIO to lesion proximal to prior LAD stent was also performed overlapping prior LAD stent. EBU 4.0 guide catheter used He was seen at [facility] and underwent PUBLIC SERVICES ASSISTANT intervention with Dr. Rivas. He is scheduled to go back for coronary brachytherapy on in-stent restenotic segment in early March. Visit Vitals BP 108/72 (BP Location: Left arm, Patient Position: Sitting) Pulse 81 Ht 1.727 m (5' 8 ) Wt 78 kg (172 lb) SpO2 96% BMI 26.15 kg/m??? Smoking Status Former BSA 1.93 m??? No Known Allergies Medications: Current Outpatient Medications on File Prior to Visit Medication Sig Dispense Refill aspirin 81 mg EC tablet Take 81 mg by mouth in the morning. atorvastatin (Lipitor) 80 mg tablet Take 1 tablet (80 mg) by mouth in the morning. 90 tablet 3 busPIRone (Buspar) 10 mg tablet Take 10 mg by mouth in the morning and at bedtime. clopidogrel (Plavix) 75 mg tablet Take 1 tablet (75 mg) by mouth once daily as directed. (Patient taking differently: Take 75 mg by mouth in the morning.) 90 tablet 3 ezetimibe (Zetia) 10 mg tablet Take 1 tablet (10 mg) by mouth in the morning. 90 tablet 3 lisinopril 2.5 mg tablet Take 2.5 mg by mouth in the morning. metoprolol succinate XL (Toprol-XL) 100 mg 24 hr tablet Take 1 tablet (100 mg) by mouth in the morning. Do not crush or chew. 90 tablet 3 nitroglycerin (Nitrostat) 0.[address] 0.4 mg under the tongue every 5 (five) minutes if needed for chest pain. omeprazole (PriLOSEC) [address] capsule Take 20 mg by mouth in the morning. Ozempic 0.25 mg or 0.5 mg (2 mg/3 mL) pen injector Inject 0.25 mg under the skin every 7 (seven) days. Takes on Sundays SITagliptin phos-metformin (Janumet) 50-1,000 mg tablet Take 1 tablet by mouth with breakfast and with evening meal. metoprolol tartrate (Lopressor) 100 mg tablet Take 50 mg by mouth. No current facility-administered medications on file prior to visit. Physical Exam: Constitutional: Appearance: Normal appearance. Without apparent distress HENT: Head: Normocephalic and atraumatic. Nose: Nose normal. Mouth/Throat: Mouth: Mucous membranes are moist. Eyes: Extraocular Movements: Extraocular movements intact. Conjunctiva/sclera: Conjunctivae normal. Neck: Vascular: No JVD. Cardiovascular: Rate and Rhythm: Normal rate and regular rhythm. Pulses: Dorsalis pedis pulses are 3 on the right side and 3on the left side. Posterior tibial pulses are 3 on the right side and 3 on the left side. Heart sounds: Normal heart sounds, S1 normal and S2 normal. Pulmonary: Effort: Pulmonary effort is normal. Breath sounds: Normal breath sounds. Abdominal: General: Bowel sounds are normal. Abd softly distended Palpations: Abdomen is soft. Musculoskeletal: General: Normal range of motion. Cervical back: Normal range of motion. Right lower le-3 + pitting edema. Left lower le-3 + pitting edema. Skin: General: Skin is warm and dry. Capillary Refill: Capillary refill takes less than 2 seconds. Neurological: General: No focal deficit present. Mental Status: he is alert and oriented to person, place, and time. Psychiatric: Mood and Affect: Mood normal. Behavior: Behavior normal. Thought Content: Thought content normal. Judgment: Judgment normal. Labs: 11/29/22 CBC normal Renal function normal K+ normal Last lab values have been reviewed CV Testin03/07/23- [facility] - cardiac cath/intervention Performing Physician(s): Diagnostic Physician: Allen Collazo MD Ordering Physician: CARLO JETER Referring Physician: [id number] CARLO JETER INDICATIONS: CAD Stable angina PROCEDURES PERFORMED: Brachytherapy and Left Heart Cath SPECIFIC CORONARY INTERVENTION PROCEDURES: Brachytherapy of proximal to mid left anterior descending artery. CONCLUSIONS: 1. 63yo M w/ multivessel CAD and prior recurrent ISR to LAD and recent PCI to LAD, along with DM2, HPL, and smoking history p/f planned brachytherapy treatment to LAD ISR. 2. HEMODYNAMICS: Normal systemic pressure. Normal LVEDP. 3. LV ANGIOGRAPHY: Deferred with prior echocardiogram with LVEF reported >40%. 4. VALVE FINDINGS: No aortic valve stenosis. 5. CORONARY ANGIOGRAPHY: Three vessel (involving proximal LAD) obstructive coronary artery disease. (more content not included)... [facility] 05-08-2023 Note Patient here for LE edema. Says since his last procedure at [facility], his swelling and SOB have progressively started getting worse. He has never been on a diuretic. He stopped smoking in Mar 2023. Find that he has to sigh and catch his breath more often now. Review of Systems Cardiovascular: Positive for leg swelling (worsening). Respiratory: Positive for shortness of breath. Hematologic/Lymphatic: Bruises/bleeds easily (on blood thinners). All other systems reviewed and are negative. [facility] 02-16-[address] [facility] Cardiology Clinic Note Chief Complaint: Patient here for follow up PUBLIC SERVICES ASSISTANT LAD at [facility] on 01/10/2023. LE edema is much better s/p PCI. Still has twinges of chest pain, which he said are not new. HPI: Boby Lancaster is a 63 y.o. male With a history of coronary artery disease, a chronic total occlusion of the left anterior descending coronary artery, here in follow-up He was seen at [facility] and underwent PUBLIC SERVICES ASSISTANT intervention with Dr. Rivas. He is scheduled to go back for coronary brachytherapy on in-stent restenotic segment in early March. He feels about the same as he did prior to PCI. He has no chest pain, he still is fatigued. No orthopnea, no paroxysmal external dyspnea, no lower extremity edema. Cardiology ROS: Review of Systems Cardiovascular: Positive for chest pain ( twinges ) and leg swelling (improving). Respiratory: Positive for cough and wheezing. Hematologic/Lymphatic: Bruises/bleeds easily (on blood thinners). All other systems reviewed and are negative. Past Medical History He has a past medical history of Coronary artery disease, Diabetes mellitus ([facility]), and Hyperlipidemia. Surgical History He has a past surgical history that includes Coronary stent placement. Social History He reports that he has been smoking cigarettes. He has a 40.00 pack-year smoking history. He has never used smokeless tobacco. No history on file for alcohol use and drug use. Family History No family history on file. Allergies Patient has no known allergies. Medications Current Outpatient Medications: aspirin 81 mg EC tablet, Take 81 mg by mouth in the morning., Disp: , Rfl: atorvastatin (Lipitor) 80 mg tablet, Take 1 tablet (80 mg) by mouth in the morning., Disp: 90 tablet, Rfl: 3 clopidogrel (Plavix) 75 mg tablet, Take 1 tablet (75 mg) by mouth once daily as directed. (Patient taking differently: Take 75 mg by mouth in the morning.), Disp: 90 tablet, Rfl: 3 ezetimibe (Zetia) 10 mg tablet, Take 1 tablet by mouth once daily, Disp: 90 tablet, Rfl: 0 lisinopril 2.5 mg tablet, Take 2.5 mg by mouth in the morning., Disp: , Rfl: metoprolol succinate XL (Toprol-XL) 100 mg 24 hr tablet, Take 1 tablet (100 mg) by mouth in the morning. Do not crush or chew., Disp: 90 tablet, Rfl: 3 metoprolol tartrate (Lopressor) 100 mg tablet, Take 50 mg by mouth., Disp: , Rfl: nitroglycerin (Nitrostat) 0.4 mg SL tablet, Place 0.4 mg under the tongue every 5 (five) minutes if needed for chest pain., Disp: , Rfl: omeprazole (PriLOSEC) [address] capsule, Take 20 mg by mouth in the morning., Disp: , Rfl: Ozempic 0.25 mg or 0.5 mg (2 mg/3 mL) pen injector, Inject 0.25 mg under the skin every 7 (seven) days. Takes on Sundays, Disp: , Rfl: SITagliptin phos-metformin (Janumet) 50-1,000 mg tablet, Take 1 tablet by mouth with breakfast and with evening meal., Disp: , Rfl: Last Recorded Vitals @IPVITALS@ Physical Examination: GENERAL: alert and oriented x3, well developed, in no acute distress. HEAD: atraumatic, normocephalic. EYES: MARGARITO, EOMI. NECK: trachea midline, no JVD present, no carotid bruits present. CARDIAC: S1, S2 present. RRR. No murmur, rubs, or gallops. RESPIRATORY: CTAB, no increased effort of breathing, no rales, rhonchi, or wheezing. ABDOMEN: soft, nontender, nondistended. EXTREMITIES: no lower extremity edema, peripheral pulses are 2+ bilaterally. No rash/skin discoloration present. NEURO: strength/sensation equal and symmetric in bilateral upper and lower extremities. PSYCH: appropriate mood, affect, and judgement. SYNGO - 01/11/2023 12:51 PM EDT [facility] [address] [place] [address] Cardiovascular Catheterization Report Patient Name: BOBY LANCASTER Date of Study: 01/10/2023 Med Rec #: [id number] Patient Height: 173.0 cm (68.1 in) Date of : 1960 Patient Weight: 70.3 kg (155.0 lb) Patient Age: 62 years Patient BSA: 1.84 m??? Pt. Gender: M Performing Physician(s): Diagnostic Physician: Steffany, Interventional Physician: Carlo Jeter MD, MD Ordering Physician: CARLO JETER Referring Physician: [id number] BONNIE GUZMÁN INDICATIONS: Stable angina PROCEDURES PERFORMED: Left Heart Cath, Coronary Stent, PTCA and IVUS SPECIFIC CORONARY INTERVENTION PROCEDURES: PTCA and everolimus eluting stent of proximal left anterior descending artery. CONCLUSIONS: 1. 62 year old male with Hx of CAD s/p remote PCI of the LAD who presented for PUBLIC SERVICES ASSISTANT PCI of the LAD. 2. HEMODYNAMICS: Normal systemic pressure. Mild to moderately elevated LVEDP. 3. CORONARY ANGIOGRAPHY: Single vessel (involving proximal LAD) obstructive coronary artery disease. Culprit vessels: proximal left anterior descending and mid left anterior descending. 4. VALVE FINDINGS: No aortic valve stenosis. 5. INTERVENTIONAL RESULTS (Lesion 1): Successful Chronic Total Occlusion P (more content not included)... [facility] 01-19-2023 Hospital Discharge instructions Follow Up Care 01/19/2023 16:06:12 With:Lillie Edgar MD, [facility], MED Address: [address] [place] [phone] Business (1) When:Within 1 Month(s) [facility] [place] 12-06-2022 Note Cardiovascular Labor atory Report FINAL IMPRESSIONS: Chronic total occlusion of the left anterior descending coronary artery supplied by ipsilateral and contralateral collaterals Evidence of patent stents in the left circumflex coronary artery and right coronary arteries Moderate disease of the left circumflex coronary artery proximally Low normal global left ventricular systolic function by noninvasive imaging RECOMMENDATIONS: Aggressive cardiovascular factor modification Optimal medical therapy should continue in the form of dual antiplatelet therapy, high intensity statin therapy, beta-emili and an angiotensin-converting enzyme inhibitor We will refer the patient for a repeat attempt at PUBLIC SERVICES ASSISTANT intervention Should the repeat attempt failed, could consider referral for possible coronary artery bypass graft surgery Follow-up with Dr. Guzmán in the next 1 to 2 months Follow-up with his family physician as scheduled PROCEDURES: Ultrasound-guided access to the right common femoral artery, limited femoral angiography, bilateral selective coronary angiography, placement of a 6 Somali MynxGrip closure device METHODS: After risks, benefits, and alternatives were explained, written informed consent was obtained. The patient was prepped and draped in usual sterile fashion over both groins. Using 1% lidocaine solution, local infiltration anesthesia was achieved. Using a modified Seldinger technique, a micropuncture kit, and under ultrasound guidance, access to the right common artery was obtained. The micropuncture kit was upsized to a 6 Somali 11 cm sheath. Angiography via the sheath was performed. Bilateral selective coronary angiography was performed using JL4 and JR4 catheters. After reviewing the images, it was elected to conclude the procedure. All catheters removed. A 6 Somali MynxGrip closure device was deployed per protocol achieving optimal hemostasis over the arterial access site. Overall the patient tolerated the procedure well. There were no overt complications. He was to be transferred to the holding area in stable condition. FINDINGS: Hemodynamics: AO 113/78 [89] LEFT VENTRICULOGRAPHY: This was not performed; ejection fraction was 53% by noninvasive stress test CORONARY ARTERIES: Left main coronary artery: This arises from the left coronary cusp, it bifurcates into the left anterior descending and left circumflex coronary arteries. It is free of significant stenoses. Left anterior descending coronary artery: This shows occlusion at the proximal portion of previously placed stents in the proximal vessel. Distal filling is seen faintly via antegrade pathways and via contralateral right to left collaterals Left circumflex coronary artery: This shows a 50% stenosis in the proximal portion of the vessel. Right coronary artery: This arises from the right coronary cusp, it is a small caliber dominant vessel giving rise to the posterior descending and posterolateral branches. There is a patent stent in the midportion of the vessel. There is mild plaque proximally. There is evidence of septal to septal collaterals as well as epicardial collaterals arising from an acute marginal branch. Limited femoral angiography: This shows mild plaque disease and anatomy suitable for closure device. INDICATIONS: Coronary artery disease, abnormal stress test, history of known chronic total occlusion [facility] 10-24-[address] [facility] Cardiology Clinic Note Chief Complaint: Follow up HPI: Boby Lancaster is a 62 y.o. male presents for a follow up. 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 Had a recent stent put in a few months ago. Boby tells me that he was feeling significantly fatigued; in addition he started to experience chest pressure with exertion and at rest. He was found to have a non-ST elevation myocardial infarction. He underwent percutaneous revascularization and stent placement of the right coronary artery. He was found to have 100% in-stent occlusion of the left anterior descending; an attempt at PUBLIC SERVICES ASSISTANT intervention was unsuccessful. He is relatively asymptomatic. He denies chest pain, his fatigue has improved. He is not sleepy . No orthopnea, no paroxysmal external dyspnea, no lower extremity edema. Unsurprisingly, he continues to smoke. Cardiology ROS: Review of Systems Cardiovascular: Positive for leg swelling. Respiratory: Positive for cough and wheezing. Hematologic/Lymphatic: Bruises/bleeds easily (on blood thinners). All other systems reviewed and are negative. Past Medical History He has no past medical history on file. Surgical History He has no past surgical history on file. Social History He has no history on file for tobacco use, alcohol use, and drug use. Family History No family history on file. Allergies Patient has no allergy information on record. Medications Current Outpatient Medications: clopidogrel (Plavix) 75 mg tablet, Take 1 tablet (75 mg) by mouth in the morning., Disp: 90 tablet, Rfl: 3 ezetimibe (Zetia) 10 mg tablet, Take 1 tablet by mouth once daily, Disp: 90 tablet, Rfl: 0 metoprolol succinate XL (Toprol-XL) 100 mg 24 hr tablet, Take 1 tablet (100 mg) by mouth in the morning. Do not crush or chew., Disp: 90 tablet, Rfl: 3 Last Recorded Vitals BP 103/70 (BP Location: Right arm, Patient Position: Sitting, BP Cuff Size: Adult) Pulse 80 Ht 1.727 m (5' 8 ) Wt 69.7 kg (153 lb 9.6 oz) SpO2 96% BMI 23.35 kg/m??? Physical Examination: GENERAL: alert and oriented x3, well developed, in no acute distress. HEAD: atraumatic, normocephalic. EYES: MARGARIOT, EOMI. NECK: trachea midline, no JVD present, no carotid bruits present. CARDIAC: S1, S2 present. RRR. No murmur, rubs, or gallops. RESPIRATORY: CTAB, no increased effort of breathing, no rales, rhonchi, or wheezing. ABDOMEN: soft, nontender, nondistended. EXTREMITIES: no lower extremity edema, peripheral pulses are 2+ bilaterally. No rash/skin discoloration present. NEURO: strength/sensation equal and symmetric in bilateral upper and lower extremities. PSYCH: appropriate mood, affect, and judgement. Investigations: Coronary angiography 05/30/2022 Findings Left main: Normal left main trunk and bifurcation LAD: Normal caliber with 100% proximal occlusion in-stent stenosis reaching the apex. Fills via collaterals from left to left. Left circumflex: Normal caliber with mild irregularity and no stenosis RCA: Normal caliber with 99% mid stenosis slightly reduced distal flow appears to be hazy as an plaque rupture, dominant, reaches the inferior wall Hemodynamics: Normal LVEDP with no gradient across the aortic valve Left ventriculography normal LV systolic function, EF 50%, mild apical wall abnormalities and normal chamber size with no mitral regurgitation PCI note: Successful PCI mid RCA 99% stenosis LUISITO II 0.7 flow reduced to 0% residual with LUISITO-3 flow after implantation of a Xience 3.0 28 postdilated 3.5 NC at high pressure Conclusions: Significant new stenosis of the RCA is culprit vessel. Known culprit is chronic occlusion of the LAD. We will consider revascularization of the LAD depending on ischemia and symptoms at a later date at the [facility] hospital. Coronary artery disease: DAPT, beta-emili, statin, risk factor modification. Importance of antiplatelet compliance was emphasized including risk of stent thrombosis or . Assessment: Coronary atherosclerosis s/p multiple PCI/stents Chronic total occlusion of the left anterior descending coronary artery - Unsuccessful attempt at PUBLIC SERVICES ASSISTANT intervention at an outside hospital Recent NSTEMI (05/2022) Dyslipidemia Diabetes mellitus Plan: Continue guideline directed medical therapy for coronary artery disease including dual antiplatelet therapy, a beta-emili, and angiotensin-converting enzyme inhibitor Given diabetes mellitus and coronary artery disease, he is appropriately on a GLP-1 receptor agonist in the form of Ozempic Given chronic total occlusion of the left anterior descending, I recommended proceeding with a Lexiscan stress test to evaluate the presence and extent of ischemia in the anterior territory. He is 62 years old; if there is a large area of anterior or anterolateral ischemia, we will need to consider referral for left internal mammary (more content not included)... [facility] 07-22-2022 Hospital Discharge instructions Follow Up Care 07/22/2022 16:10:04 With:Lillie Edgar MD, [facility], [facility] Address: [address] [place] [phone] Business (1) When:Within 3 Month(s) [facility] [place] 06-29-2022 Note Pre-procedure Verifi cation and Time Out: Pre-Procedure Verification and Time Out: Procedure Locationprocedure area HUDDLE - Pre-procedure Verificationcompleted TIME OUT - Final Verificationcompleted immediately prior to procedure start DEBRIEFcompleted General Information: Anesthesia Critical Care: Non-Anesthesia Date/Time of Procedure: 29-Jun-2022 11:14 Post-Procedure Diagnosis: CAD Unsuccessful PCI Procedure Name: PCI PUBLIC SERVICES ASSISTANT RCA Findings: grossly normal anatomy Procedure performed by: id Cut Out Machine Operator(s): none Estimated Blood Loss (mL): none Specimen: no Indication(s): Angina Procedure Details: Procedure Details: R femoral 6 sami, heparin Escalating wire technique. Could not cross lesion with confianza pro 12 Rec: medical therapy. Tolerance: good Complications: none Electronic Signatures: Danuta Damon) (Signed 29-Jun-2022 11:17) Authored: Pre-procedure Verification and Time Out, General Information, Procedure Details, Note Completion Last Updated: 29-Jun-2022 11:17 by Danuta Damon) [facility] 06-29-2022 Note History of Present I llness: HPI: BOBY LANCASTER is a 62 year old Male with CAD, recent NSTEMI, PCI RCA. PUBLIC SERVICES ASSISTANT LAD here for attempt PUBLIC SERVICES ASSISTANT PCI. Comorbidities: Comorbidites: Comorbid Conditionshypertension Family History: Family History: reviewed and not pertinent to presenting problem Social History: Social History: Smoking Statusheavy user (uses >30 cig/day, OR >1.5 ppd, OR >3 cans/pouches loose leaf tobacco per week, OR >1.5 vape pods per day) Alcohol Usedenies Allergies: No Known Allergies: Medications Prior to Admission: Admission Medication Reconciliation has not been completed for this patient. Review of Systems: Constitutional: NEGATIVE: Fever, Chills, Anorexia, Weight Loss, Malaise Eyes: NEGATIVE: Blurry Vision, Drainage, Diploplia, Redness, Vision Loss/ Change ENMT: NEGATIVE: Nasal Discharge, Nasal Congestion, Ear Pain, Mouth Pain, Throat Pain Respiratory: NEGATIVE: Dry Cough, Productive Cough, Hemoptysis, Wheezing, Shortness of Breath Cardiac: NEGATIVE: Chest Pain, Dyspnea on Exertion, Orthopnea, Palpitations, Syncope Gastrointestinal: NEGATIVE: Nausea, Vomiting, Diarrhea, Constipation, Abdominal Pain Genitourinary: NEGATIVE: Discharge, Dysuria, Flank Pain, Frequency, Hematuria Musculoskeletal: NEGATIVE: Decreased ROM, Pain, Swelling, Stiffness, Weakness Neurological: NEGATIVE: Dizziness, Confusion, Headache, Seizures, Syncope Skin: NEGATIVE: Mass, Pain, Pruritus, Rash, Ulcer Endocrine: NEGATIVE: Heat Intolerance, Cold Intolerance, Sweat, Polyuria, Thirst Hematologic/Lymph: NEGATIVE: Anemia, Bruising, Easy Bleeding, Night Sweats, Petechiae Allergic/Immunologic: NEGATIVE: Anaphylaxis, Itchy/ Teary Eyes, Itching, Sneezing, Swelling Objective: Physical Exam Narrative: Physical Exam: NAD RRR CTA B Soft nt/nd +BS Ext Nonfocal Medications: Medications: Continuous Medications 1. 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 ASA 2 Mallinpati 2 Electronic Signatures: Danuta Damon) (Signed 29-Jun-2022 11:13) Authored: History of Present Illness, Comorbidities, Family History, Social History, Allergies, Medications Prior to Admission, Review of Systems, Objective, Assessment and Plan, Note Completion Last Updated: 29-Jun-2022 11:13 by Danuta Damon) [facility] 05-31-2022 Note Admission and Discha rge Information Admitting Physician - BUDDY BAEZ, Yuean Consulting Physician - Sonia BAEZ, Danuta Fowler Admitting Diagnoses: Discharge Order Date Discharge Patient - Ordered -- 05/30/22 15:00:00 EST Discharge Diagnoses 1. Unstable angina, 05/30/2022 2. Diabetes, 05/30/2022 3. Hypertension, 05/30/2022 4. Hyperlipidemia, 05/30/2022 5. Coronary artery disease, 05/30/2022 6. Chronic GERD, 05/30/2022 7. No contraindication to deep vein thrombosis (DVT) prophylaxis, 05/30/2022 Chest pain, 05/30/2022 Shortness of breath, 05/30/2022 Procedure History Colonoscopy (03/11/2022), cardiac stent (11/24/2007), Colonoscopy, PCI (percutaneous coronary intervention) of RCA (right coronary artery). Hospital Course Pt is a 62 M admitted with chest pain, found to have ACS with elevated troponin, diffuse ST depression. pt was seen by [facility] cardiology, had a cardiac cath. Pt had PCI with JULIO to RCA. pt recovered from heart cath and discharged home as per cardiology recommendations. pt continued on ASA, plavix and same medication regimen as previous. pt to follow up with PCP and [facility] cardiology as an outpatient. discharge time 35 minutes in d/w patient, nurse and cardiology pt with quicker than expected recovery for this inpatient stay. Services Consulted Consult to Cardiology - Ordered -- 05/30/22 10:05:00 EST, nstemi, Consult and Co-manage, FT Heart and Vascular Physical Exam Vitals & Measurements HR: 81(Monitored) RR: 20 BP: 97/68 SpO2: 97% General: alert, no acute distress ENMT: oral mucosa moist, no pharyngeal erythema or exudate Cardiovascular: regular rate and rhythm, normal peripheral perfusion Respiratory: Lungs CTA, respirations non labored Abdomen: soft, NTND, +BS Skin: warm, dry, intact Extremities: no deformity, no trauma Neurological: LOC appropriate for age, CN II-XII intact, motor strength equal & normal bilaterally, sensation equal & normal bilaterally, speech normal Laboratory Results Automated Diff (05/30/2022) Neutro Auto - 69.2 % Lymph Auto - 20.6 % Mclean Auto - 7.3 % Eos Auto - 2.1 % Basophil Auto - 0.8 % Neutro Absolute - 6.3 E9/L Lymph Absolute - 1.9 E9/L Mclean Absolute - 0.7 E9/L Eos Absolute - 0.2 E9/L Basophil Absolute - 0.1 E9/L BMP (05/30/2022) Glucose Lvl - 218 mg/dL BUN - 19 mg/dL Creatinine - 1.2 mg/dL BUN/Creat Ratio - 16 Sodium Lvl - 136 mmol/L Potassium Lvl - 4.3 mmol/L Chloride - 101 mmol/L CO2 - 26 mmol/L AGAP - 13 mEq/L Calcium Lvl - 9.3 mg/dL eGFR (05/30/2022) eGFR - >60 mL/min/1.73 m2 eGFR AA - >60 mL/min/1.73 m2 PT & PTT (05/30/2022) PT - 10.7 second(s) INR - 1.0 PTT - 30.9 second(s) Troponin 0 Hr. (05/30/2022) Troponin - 109.90 pg/mL Troponin 3 Hr. (05/30/2022) Troponin - 165.50 pg/mL Tests Performed Automated Diff BMP BMP -- Results Pending -- CBC w/ Auto Diff -- Results Pending -- eGFR Lipid Panel -- Results Pending -- Magnesium Level -- Results Pending -- PT & PTT Troponin -- Results Pending -- Troponin 0 Hr. Troponin 3 Hr. XR Chest Single View Please visit your patient portal for your results or contact your primary care physician. Discharge Plan Discharge Medication List Prescriptions aspirin 81 mg Chew Tab, 81 mg= 1 tab(s), Oral, Daily, 3 refills handicap placard, See Instructions Janumet XR 50 mg-1000 mg oral tablet, extended release, 1 tab(s), Oral, BID, 3 refills lisinopril 2.5 mg Tab, 2.5 mg, Oral, Daily, 3 refills omeprazole 20 mg Cap-DR, 20 mg= 1 cap(s), Oral, Daily, 3 refills, Not taking: pt has not picked up from the pharmacy yet Ozempic 2 mg/1.5 mL (0.25 mg or 0.5 mg dose) subcutaneous solution, 0.25 mg, SubCutaneous, qWeek, 3 refills Home atorvastatin 80 mg Tab, 80 mg= 1 tab(s), Oral, Daily clopidogrel 75 mg Tab, 75 mg= 1 tab(s), Oral, Daily ezetimibe 10 mg Tab, 10 mg= 1 tab(s), Oral, Daily metoprolol 100 mg ER Tab, 100 mg= 1 tab(s), Oral, Daily Follow-up No qualifying data available [facility] Comment on above: Result Comment: Elec tronically Signed By: Jaime GOODWIN MD\.br\Date and Time Signed: 05/31/22 10:03 EST 05-31-2022 Note Post PCI GDMT Patient is on asa/Plavix, beta emili, DAVID, and high intensity statin. Cardiac rehab referral. [facility] Comment on above: Result Comment: Elec tronically Signed By: Toma MAHMOOD CNP\.br\Date and Time Signed: 05/30/22 23:07 EST\.br\Electronically Co-Signed By: Sonia BAEZ, Danuta Fowler\.br\Date and Time Co-Signed: 06/03/22 14:27 EST 05-30-2022 Hospital Discharge instructions Patient Education 05/30/2022 15:26:16 CV - Cardiovascular PCI Discharge Instructions (CUSTOM) [place], [place] Cardiovascular PCI DISCHARGE INSTRUCTIONS Diet: Resume pre-procedure diet. Increase water intake the next 2 days to flush dye out of the body. Activity: If radial access: Limit your activity today. Do not operate a vehicle, machinery or power tools. NO LIFTING OVER 3 POUNDS for 3 days. Do not bend your wrist for 24 hours. May resume driving in 24 hours. Let pain/discomfort guide your activity. If you are having pain, stop. No sexual activity for 1 week. Return to the Emergency Room if you have trouble breathing, walking or nausea and vomiting. Medications: Resume pre-procedure medication, unless otherwise directed. Hold the following medications for 48 hours post procedure: Actoplus MetGlucophageGlucophage XR GlucovanceAvandametFortamet Azt-xvnamqzkfRzorwxSpir-qwgthtoff GlumetzaJanumetMetaglip RiometGlycomet Minimal pain, soreness and/or discomfort is expected. 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 Keep site clean and dry; inspect site daily. Do not use any lotions, powders, or ointments at the groin or wrist site for 1 week. May shower 24 hours after the procedure. Clean site with soap and water. Pat dry and apply band aid. No tub baths, swimming or hot tubs for 3 days. Post Procedure: Soreness and tenderness to the site can last up to one week. Bruising may occur to site. A responsible adult should be with you for the first 24 hours after you arrive home. Keep follow-up appointment. Carry your stent card with you at all times. This provides information about your heart disease for any doctor who cares for you. No smoking for 24 hours as it increases the risk of developing blood clots. If you are interested in smoking cessation, contact [facility] at [phone], ext. [phone]. In the event you are unable to reach your physician, please call [facility] at [phone] and the coal drier operator will assist you. Seek Medicare Care for: Bleeding: Apply continuous pressure to the site and Call 911. Should the arm or leg become cold, numb, blue or white call your physician immediately. Signs of infection are redness, warmth, swelling, getting more sore, colored drainage, fever or chills Chest pain Blood in your urine or stool Black tarry stools Follow Up Care 05/30/2022 10:29:29 With:Danuta Damon Address: [address] [place] [address] [place] [address] Business (1) When:06/13/2022 14:45:00 [facility] 05-30-2022 Evaluation + Plan note Extrac haroldo from: Title:Consult Note Author:Sonia BAEZ, Pérez Wilkinson. Date:05/30/22 Non-STEMI, will set up for c ardiac catheterization possible PCI. RB AP risks, benefits, alternatives, and personnel were discussed at length and the patient agrees to proceed. Additional time was devoted to reviewing Covid risk as well as lack of surgical backup (level 2). The patient is aware of these risks. [facility] poss PCI via right radial Patient seen and examined. The risk/benefits of the procedure were thoroughly discussed with patient including specific attention to lack of onsite surgical backup and risk of jimi covid, and the patient agrees to proceed. Airway Assessment: Class I: Visualization of the soft palate, fauces, uvula, anterior and posterior pillars Airway Abnormalities: none ASA Classification: ASA 2: Mild systemic disease Risks/Benefits of IV Sedation: Have been explained IV Sedation Plan: Patient agrees to IV sedation plan Ordered: fentanyl, 50 microgram = 1 mL, Injection, IV Push, q2min PRN Other (see comment) for 4 dose(s), Stop date Limited # of times, Routine, Start date 05/30/22 10:33:00 EST, 05/30/22 10:33:00 EST heparin, 5,000 unit(s) = 5 mL, Injection, IV Push, q2min PRN Other (see comment) for 4 dose(s), Stop date Limited # of times, Routine, Start date 05/30/22 10:33:00 EST heparin, 1,000 unit(s) = 500 mL, Soln-IV, Misc, Once PRN Other (see comment), Routine, Start date 05/30/22 10:33:00 EST, 05/30/22 10:33:00 EST heparin, 1,000 unit(s) = 500 mL, Soln-IV, Misc, Once PRN Other (see comment), Routine, Start date 05/30/22 10:33:00 EST, 05/30/22 10:33:00 EST heparin, 1,000 unit(s) = 500 mL, Soln-IV, Misc, Once PRN Other (see comment), Routine, Start date 05/30/22 10:33:00 EST, 05/30/22 10:33:00 EST iopamidol, = 50 mL, Injection, IV Push, q5min PRN Other (see comment) for 4 dose(s), Stop date Limited # of times, Routine, Start date 05/30/22 10:33:00 EST iopamidol, = 200 mL, Injection, IV Push, q5min PRN Other (see comment) for 4 dose(s), Stop date Limited # of times, Routine, Start date 05/30/22 10:33:00 EST lidocaine, 100 mg, 10 mL, Injection, SubCutaneous, q5min PRN Other (see comment) for 3 dose(s), Stop date Limited # of times, STAT, Start date 05/30/22 10:33:00 EST midazolam, 1 mg = 1 mL, Injection, IV Push, q2min PRN Other (see comment) for 4 dose(s), Stop date Limited # of times, Routine, Start date 05/30/22 10:33:00 EST, 05/30/22 10:33:00 EST niCARdipine 20 mg + Sodium Chloride 0.9% intravenous solution 200 mL, 200 mL, IV, titrate per protocol, Routine, Start date 05/30/22 10:33:00 EST, Total volume (mL): 200, 72 kg, Use as directed for radial cocktail, 1.86, m2 nitroglycerin 50 mg [5 mcg/min] + Dextrose 5% in Water intravenous solution 250 mL, 250 mL, IV, 1.5 mL/hr, Routine, Start date 05/30/22 10:33:00 EST, 166.7 hour(s), Total volume (mL): 250, 72 kg, 1.86, m2 Sodium Chloride 0.9% intravenous solution, Soln-IV, Misc, Once, Stop date 05/30/22 11:06:49 EST, Physician Stop, 05/30/22 11:06:49 EST Sodium Chloride 0.9% intravenous solution 1,000 mL, 1,000 mL, IV, 75 mL/hr, Routine, Start date 05/30/22 10:32:00 EST, 13.3 hour(s), Total volume (mL): 1,000, 72 kg, 1.86, m2 verapamil, 2.5 mg = 1 mL, Soln-IV, IV Push, q2min PRN Other (see comment), Routine, Start date 05/30/22 10:33:00 EST, as directed for radial cocktail Communication Order Communication Order Communication Order Communication Order Communication Order Communication Order Communication Order Communication Order Communication Order CV Cardiovascular CV Coronary IVUS FFR Initial CV Coronary IVUS Initial NPO Diet Oxygen Protocol Patient Education Routine Capillary Glucose POC Saline Lock Insert Future Appointments Appointment Date:06/13/2022 02:45:00 PM Scheduled Provider:Sonia BAEZ, Danuta Fowler [facility] Type:Cardiology Follow Up (FT) Appointment Date:07/22/2022 03:40:00 PM Scheduled Provider:Lillie Edgar MD Location:[facility] Appointment Type: Open Future Scheduled Tests Radiology* MRI Shoulder w/o Contrast Left 05/27/22 [facility]01-30-2023 NoteReason for Consultation Chest pain History of Present Illness 62-year-old male with history of CAD and prior PCI diabetes hypertension hyperlipidemia. Came in with chest discomfort across center of his chest radiating to both arms. Associated with some shortness of breath. Denies any orthopnea or nocturnal dyspnea nausea vomiting diaphoresis. Does not feel sim ilar to his prior angina. Review of Systems Constitutional: no fever, no sweats, no weakness Skin: no rash, no lesions, nobruising/petechiae ENMT: no sore throat, no congestion, no hoarseness Respiratory: no shortness of breath, no cough, no orthopnea, no wheezing Cardiovascular: no chest pain, no palpitations, no edema Gastrointestinal: no nausea, no vomiting, no diarrhea, no GI bleeding Genitourinary: no anuria/oliguria no hematuria Musculoskeletal: no back pain, no trauma Neurologic: no headache, no dizziness, no numbness, no weakness Psychiatric: no sleeping problems, no irritability, no anxiety/depression. Heme/Lymph: no bleeding tendency, no bruising tendency Allergy/Immunologic: no recurrent infections, no impaired immunity Additional ROS info: Except as noted in the above Review of Systems and in the History of Present Illness all other systems have been reviewed and are negative or noncontributory. Physical Exam General: alert, no acute distress Skin: warm, dry intact Head: atraumatic, normocephalic Neck: Trachea midline, no JVD, no bruit Eye: normal conjunctiva, sclera clear ENMT: oral mucosa moist Cardiovascular: regular rate and rhythm, nomurmur normal peripheral perfusion Respiratory: Lungs CTA, respirations non labored Chest wall: no deformity. Gastrointestinal: soft, non distended, no tenderness, no guarding. Back: No tenderness, Normal ROM, Normal alignment. Extremities: no edema, no deformity, no trauma Neurological: oriented x 4, LOC appropriate for agesensation equal & normal bilaterally, speechnormal Psychiatric: cooperative, affect appropriate for age, normal judgement, normal psychiatric thoughts. Images EKG: Normal sinus rhythm with diffuse ST depression inferior Assessment/Plan Non-STEMI, will set up for cardiac catheterization possible PCI. RB AP risks, benefits, alternatives, and personnel were discussed at length and the patient agrees to proceed. Additional time was devoted to reviewing Covid risk as well as lack of surgical backup (level 2). The patient is aware of these risks. [facility] poss PCI via right radial Patient seen and examined. The risk/benefits of the procedure were thoroughly discussed with patient including specific attention to lack of onsite surgical backup and risk of jimi covid, and the patient agrees to proceed. Airway Assessment: Class I: Visualization of the soft palate, fauces, uvula, anterior and posteriorpillars Airway Abnormalities: none ASA Classification: ASA 2: Mild systemic disease Risks/Benefits of IV Sedation: Have been explained IV Sedation Plan: Patient agrees to IV sedation plan Ordered: fentanyl, 50 microgram = 1 mL, Injection, IV Push, q2min PRN Other (see comment) for 4 dose(s), Stop date Limited # of times, Routine, Start date 05/30/22 10:33:00 EST, 05/30/22 10:33:00 EST heparin, 5,000 unit(s) = 5 mL, Injection, IV Push, q2min PRN Other (see comment) for 4 dose(s), Stop date Limited # of times, Routine, Start date 05/30/22 10:33:00 EST heparin, 1,000 unit(s) = 500 mL, Soln-IV, Misc, Once PRN Other (see comment), Routine, Start date 05/30/22 10:33:00 EST, 05/30/22 10:33:00 EST heparin, 1,000 unit(s) = 500 mL, Soln-IV, Misc, Once PRN Other (see comment), Routine, Start date 05/30/22 10:33:00 EST, 05/30/22 10:33:00 EST heparin, 1,000 unit(s) = 500 mL, Soln-IV, Misc, Once PRN Other (see comment), Routine, Start date 05/30/22 10:33:00 EST, 05/30/22 10:33:00 EST iopamidol, = 50 mL, Injection, IV Push, q5min PRN Other (see comment) for 4 dose(s), Stop date Limited # of times, Routine, Start date 05/30/22 10:33:00 EST iopamidol, = 200 mL, Injection, IV Push, q5min PRN Other (see comment) for 4 dose(s), Stop date Limited # of times, Routine, Start date 05/30/22 10:33:00 EST lidocaine, 100 mg, 10 mL, Injection, SubCutaneous, q5min PRN Other (see comment) for 3 dose(s), Stop date Limited # of times, STAT, Start date 05/30/22 10:33:00 EST midazolam, 1 mg = 1 mL, Injection, IV Push, q2min PRN Other (see comment) for 4 dose(s), Stop date Limited # of times, Routine, Start date 05/30/22 10:33:00 EST, 05/30/22 10:33:00 EST niCARdipine 20 mg + Sodium Chloride 0.9% intravenous solution 200 mL, 200 mL, IV, titrate per protocol, Routine, Start date 05/30/22 10:33:00 EST, Total volume (mL): 200, 72 kg, Use as directed for radial cocktail, 1.86, m2 nitroglycerin 50 mg [5 mcg/min] + Dextrose 5% in Water intravenous solution 250 mL, 250 mL, IV, 1.5mL/hr, Routine, Start date 05/30/22 10:33:00 EST, 166.7 hour(s), Total volume (mL): 250, 72 kg, 1.86, m2 Sodium Chloride 0.9% intravenous solution, Soln (more content not included)... [facility] Comment: Electronically Signed By: Sonia BAEZ, Danuta Fowler\.br\Date and Time Signed: 05/30/22 11:10 [id number] NoteBasic Information Accompanied by: Family member Source of History: Self Present at Bedside: Family member Referral Source: ED History Limitation: None Chief Complaint Pt reports chest pain intermittently since monday. Pt reports pain gets worse with ambulation. SOB. Hx of HI, 4 stents, blood thinner daily. History of Present Illness Pt is a 62 M PMH DM, HTN, HLD, CAD (s/p stents 2007 and 2012, at [facility], follows with cardiology there), chronic GERD admitted from ED complaining of chest pain. pt says for the past 3 days he has had exertional chest pain/pressure. Pt denies any nausea or vomiting. pt denies any abdominal pain, diarrhea, constipation, dysuria. pt says pain is substernal, no radiation. pt says better with rest. No other complaints. Review of Systems Additional ROS info: Except as noted in the above Review of Systems and in the History of Present Illness all other systems have been reviewed and are negative or noncontributory. Scoring Miller Fall Risk Score: 20 (05/30/22) Physical Exam Vitals & Measurements T: 36.4 ?C(Oral) HR: 75(Monitored) RR: 21 BP: 93/76 SpO2: 94% HT: 173 cm WT: 72 kg General: alert, no acute distress Skin: warm, dry Head: no trauma, normocephalic Neck: Trachea midline, no adenopathy, no tenderness Eye: normal conjunctiva, sclera clear ENMT: oral mucosa moist, no pharyngeal erythema or exudate Cardiovascular: regular rate and rhythm, normal peripheral perfusion Respiratory: Lungs CTA, respirations non labored Chest wall: no deformity. Gastrointestinal: soft, non distended, no tenderness, no guarding. Back: No tenderness, Normal ROM, Normal alignment. Extremities: no deformity, no trauma Neurological: oriented x 4, LOC appropriate for age, CN II-XII intact, motor strength equal & normal bilaterally, sensation equal & normal bilaterally, speech normal Psychiatric: cooperative, affect appropriate for age, normal judgement, normal psychiatric thoughts. Lab Results WBC: 9.1 E9/L (05/30/22 08:01:00) RBC: 5.2 E12/L (05/30/22 08:01:00) HGB: 14.8 gm/dL (05/30/22 08:01:00) Hct: 45.6 % (05/30/22 08::00) MCV: 88.1 fL (05/30/22 08::00) MCH: 28.7 pg (05/30/22 08:01:00) MCHC: 32.5 gm/dL (05/30/22 08:01:00) RDW: 14.3 % High (05/30/22 08:01:00) Platelet: 286 E9/L (05/30/22 08:01:00) MPV: 7.5 fL (05/30/22 08:01:00) Neutro Auto: 69.2 % (05/30/22 08:01:00) Lymph Auto: 20.6 % (05/30/22 08:01:00) Mclean Auto: 7.3 % (05/30/22 08:01:00) Eos Auto: 2.1 % (05/30/22 08:01:00) Basophil Auto: 0.8 % (05/30/22 08:01:00) Neutro Absolute: 6.3 E9/L (05/30/22 08:01:00) Lymph Absolute: 1.9 E9/L (05/30/22 08:01:00) Mclean Absolute: 0.7 E9/L (05/30/22 08:01:00) Eos Absolute: 0.2 E9/L (05/30/22 08:01:00) Basophil Absolute: 0.1 E9/L (05/30/22 08:01:00) PT: 10.7 second(s) (05/30/22 08:01:00) INR: 1 (05/30/22 08::00) PTT: 30.9 second(s) (05/30/22 08:01:00) Glucose Lvl: 218 mg/dL High (05/30/22 08:01:00) BUN: 19 mg/dL (05/30/22 08:01:00) Creatinine: 1.2 mg/dL (05/30/22 08::00) eGFR: >60 (05/30/22 08::00) eGFR AA: >60 (05/30/22 08::00) BUN/Creat Ratio: 16 (05/30/22 08:01:00) Sodium Lvl: 136 mmol/L (05/30/22 08:01:00) Potassium Lvl: 4.3 mmol/L (05/30/22 08::00) Chloride: 101 mmol/L (05/30/22 08:01:00) CO2: 26 mmol/L (05/30/22 08::00) AGAP: 13 mEq/L (05/30/22 08:01:00) Calcium Lvl: 9.3 mg/dL (05/30/22 08:01:00) Troponin: 109.9 pg/mL Critical (05/30/22 08:01:00) Diagnostic Results EKG NSR [address]-T wave depression Images XR Chest Single View * Preliminary * 05/30/22 09:07:19 NEGATIVE: No infiltrate, mass or other acute cardiopulmonary abnormality Read By: Michele Roman DO Assessment/Plan 1. Unstable angina (I20.0: Unstable angina) - elevated troponin, diffuse ST depression, ACS, NSTEMI - d/w cardiology, NPO for cath later today - heparin gtt as per d/w cardiology - ASA, statin, metoprolol and lisinopril 2. Diabetes (E11.9: Type 2 diabetes mellitus without complications) - SSI - hold janumet 3. Hypertension (I10: Essential (primary) hypertension) - metoprolol, lisinopril 4. Hyperlipidemia (E78.5: Hyperlipidemia, unspecified) - atorvastatin 5. Coronary artery disease (I25.10: Atherosclerotic heart disease of [place] coronary artery withoutangina pectoris) - ASA, statin, metoprolol, lisinopril - will hold plavix for now - depending on intervention might be on brilinta 6. Chronic GERD (K21.9: Gastro-esophageal reflux disease without esophagitis) - omeprazole Ordered: pantoprazole, 40 mg = 1 tab(s), Tab-DR, Oral, Daily, Routine, Start date 05/31/22 9:00:00 EST, 05/30/22 10:11:00 EST 7. No contraindication to deep vein thrombosis (DVT) prophylaxis (Z78.9: Other specified health status) - SCDs, heparin gtt pt will require greater than 2 midnights stay for above d/w patient and family at bedside Orders: acetaminophen, 650 mg = 2 tab(s), Tab, Oral, q6hr PRN Pain, Routine, Start date 05/30/22 10: (more content not included)...[facility]Result Comment: Electronically Signed By: BUDDY BAEZ, Jaime\.br\Date and Time Signed: 05/30/22 10:17 [id number] Hospital Discharge instructions Follow Up Care 05/26/2022 14:36:47 With:Lillie Edgar MD, [facility], [facility] Address: [address] [place], [place] [address]- [phone] Business (1) When:04/10/2021 [facility] [place] 01-26-2023 Hospital Discharge instructions Patient Education 05/26/2022 14:18:59 Shoulder Exercises-SportsMed Shoulder Exercises Ask your health care provider which exercises are safe for you. Do exercises exactly as told by your health care provider and adjust them as directed. It is normal to feel mild stretching, pulling, tightness, or discomfort as you do these exercises. Stop right away if you feel sudden pain or your pain gets worse. Do not begin these exercises until told by your health care provider. Stretching exercises External rotation and abduction This exercise is sometimes called corner stretch. This exercise rotates your arm outward (external rotation) and moves your arm out from your body (abduction). 1.interventionist a doorway with one of your feet slightly in front of the other. This is called a staggered stance. If you cannot reach your forearms to the door frame, stand facing a corner of a room. 2.Choose one of the following positions as told by your health care provider: Place your hands and forearms on the door frame above your head. Place your hands and forearms on the door frame at the height of your head. Place your hands on the door frame at the height of your elbows. 3.Slowly move your weight onto your front foot until you feel a stretch across your chest and in the front of your shoulders. Keep your head and chest upright and keep your abdominal muscles tight. 4.Hold for seconds. 5.To release the stretch, shift your weight to your back foot. Repeat times. Complete this exercise times a day. Extension, standing 1.Stand and hold a broomstick, a cane, or a similar object behind your back. Your hands should be a little wider than shoulder width apart. Your palms should face away from your back. 2.Keeping your elbows straight and your shoulder muscles relaxed, move the stick away from your body until you feel a stretch in your shoulders (extension). Avoid shrugging your shoulders while you move the stick. Keep your shoulder blades tucked down toward the middle of your back. 3.Hold for seconds. 4.Slowly return to the starting position. Repeat times. Complete this exercise times a day. [id number]-rc-[id number] exercises Pendulum 1.Stand near a wall or a surface that you can hold onto for balance. 2.Bend at the waist and let your left / right arm hang straight down. Use your other arm to supportyou. Keep your back straight and do not lock your knees. 3.Relax your left / right arm and shoulder muscles, and move your hips and your trunk so your left / right arm swings freely. Your arm should swing because of the motion of your body, not because youare using your arm or shoulder muscles. 4.Keep moving your hips and trunk so your arm swings in the following directions, as told by your health care provider: Side to side. Forward and backward. In clockwise and counterclockwise circles. 5.Continue each motion for seconds, or for as long as told by your health care provider. 6.Slowly return to the starting position. Repeat times. Complete this exercise times a day. Shoulder flexion, standing 1.Stand and hold a broomstick, a cane, or a similar object. Place your hands a little more than shoulder width apart on the object. Your left / right hand should be palm up, and your other hand should be palm down. 2.Keep your elbow straight and your shoulder muscles relaxed. Push the stick up with your healthy arm to raise your left / right arm in front of your body, and then over your head until you feel a stretch in your shoulder (flexion). Avoid shrugging your shoulder while you raise your arm. Keep your shoulder blade tucked down towardthe middle of your back. 3.Hold for seconds. 4.Slowly return to the starting position. Repeat times. Complete this exercise times a day. Shoulder abduction, standing 1.Stand and hold a broomstick, a cane, or a similar object. Place your hands a little more than shoulder width apart on the object. Your left / right hand should be palm up, and your other hand should be palm down. 2.Keep your elbow straight and your shoulder muscles relaxed. Push the object across your body toward your left / right side. Raise your left / right arm to the side of your body (abduction) until you feel a stretch in your shoulder. Do not raise your arm above shoulder height unless your health care provider tells you to do that. If directed, raise your arm over your head. Avoid shrugging your shoulder while you raise your arm. Keep your shoulder blade tucked down towardthe middle of your back. 3.Hold for seconds. 4.Slowly return to the starting position. Repeat times. Complete this exercise times a day. Internal rotation 1.Place your left / right hand behind your back, palm up. 2.Use your other hand to dangle an exercise band, a towel, or a similar object over your shoulder. Grasp the band with your left / right hand so you are holding on to both ends. 3.Gently pull up on the band until you feel a stretch in the front of your left / right shoulder. The movement of your arm toward the center of your body is called internal rotation. Avoid shrugging your shoulder while you raise your arm. Keep your shoulder blade tucked down towardthe middle of your back. 4.Hold for seconds. 5.Release the stretch by letting go of the band and lowering your hands. Repeat times. Complete this exercise times a day. Strengthening exercises External rotation 1.Sit in a stable chair without armrests. 2.Secure an exercise band to a stable object at elbow height on your left / right side. 3.Place a soft object, such as a folded towel or a small pillow, between your left / right upper arm and your body to move your elbow about 4 inches (10 cm) away from your side. 4.Hold the end of the exercise band so it is tight and there is no slack. 5.Keeping your elbow pressed against the soft object, slowly move your forearm out, away from your abdomen (external rotation). Keep your body steady so only your forearm moves. 6.Hold for seconds. 7.Slowly return to the starting position. Repeat times. Complete this exercise times a day. Shoulder abduction 1.Sit in a stable chair without armrests, or stand up. 2.Hold a weight in your left / right hand, or hold an exercise band with both hands. 3.Start with your arms straight down and your left / right palm facing in, toward your body. 4.Slowly lift your left / right hand out to your side (abduction). Do not lift your hand above shoulder height unless your health care provider tells you that this is safe. Keep your arms straight. Avoid shrugging your shoulder while you do this movement. Keep your shoulder blade tucked down toward the middle of your back. 5.Hold for seconds. 6.Slowly lower your arm, and return to the starting position. Repeat times. Complete this exercise times a day. Shoulder extension 1.Sit in a stable chair without armrests, or stand up. 2.Secure an exercise band to a stable object in front of you so it is at shoulder height. 3.Hold one end of the exercise band in each hand. Your palms should face each other. 4.Straighten your elbows and lift your hands up to shoulder height. 5.Step back, away from the secured end of the exercise band, until the band is tight and there is no slack. 6.Squeeze your shoulder blades together as you pull your hands down to the sides of your thighs (extension). Stop when your hands are straight down by your sides. Do not let your hands go behind yourbody. 7.Hold for seconds. 8.Slowly return to the starting position. Repeat times. Complete this exercise times a day. Shoulder row 1.Sit in a stable chair without armrests, or stand up. 2.Secure an exercise band to a stable object in front of you so it is at waist height. 3.Hold one end of the exercise band in each hand. Position your palms so that your thumbs are facing the ceiling (neutral position). 4.Bend each of your elbows to a 90-degree angle (right angle) and keep your upper arms at your sides. 5.Step back until the band is tight and there is no slack. 6.Slowly pull your elbows back behind you. 7.Hold for seconds. 8.Slowly return to the starting position. Repeat times. Complete this exercise times a day. Shoulder press-ups 1.Sit in a stable chair that has armrests. Sit upright, with your feet flat on the floor. 2.Put your hands on the armrests so your elbows are bent and your fingers are pointing forward. Your hands should be about even with the sides of your body. 3.Push down on the armrests and use your arms to lift yourself off the chair. Straighten your elbows and lift yourself up as much as you comfortably can. Move your shoulder blades down, and avoid letting your shoulders move up toward your ears. Keep your feet on the ground. As you get stronger, your feet should support less of your body weight as you lift yourself up. 4.Hold for seconds. 5.Slowly lower yourself back into the chair. Repeat times. Complete this exercise times a day. Wall push-ups 1.Stand so you are facing a stable wall. Your feet should be about one arm- length away from the wall. 2.Lean forward and place your palms on the wall at shoulder height. 3.Keep your feet flat on the floor as you bend your elbows and lean forward toward the wall. 4.Hold for seconds. 5.Straighten your elbows to push yourself back to the starting position. Repeat times. Complete this exercise times a day. This information is not intended to replace advice given to you by your health care provider. Make sure you discuss any questions you have with your health care provider. Document Released: 03/01/2006 Document Revised: 08/09/2019 Document Reviewed: 05/17/2019 Elsevier Patient Education 2020 [employer] Follow Up Care 05/09/2022 15:05:28 With:Lillie Edgar MD, [facility], MED Address: [address] [place] [phone] Business (1) When:Within 2 Month(s) [facility] Medicine [place] 09-23-2022 Hospital Discharge instructions Patient Education 01/21/2022 12:42:41 Colonoscopy, Adult Colonoscopy, Adult A colonoscopy is an exam to look at the entire large intestine. During the exam, a lubricated, flexible tube that has a camera on the end of it is inserted into the anus and then passed into the rectum, colon, and other parts of the large intestine. You may have a colonoscopy as a part of normal colorectal screening or if you have certain symptoms, such as: Lack of red blood cells (anemia). Diarrhea that does not go away. Abdominal pain. Blood in your stool (feces). A colonoscopy can help screen for and diagnose medical problems, including: Tumors. Polyps. Inflammation. Areas of bleeding. Tell a health care provider about: Any allergies you have. All medicines you are taking, including vitamins, herbs, eye drops, creams, and qilj-jxu-gnkszjq medicines. Any problems you or family members have had with anesthetic medicines. Any blood disorders you have. Any surgeries you have had. Any medical conditions you have. Any problems you have had passing stool. What are the risks? Generally, this is a safe procedure. However, problems may occur, including: Bleeding. A tear in the intestine. A reaction to medicines given during the exam. Infection (rare). What happens before the procedure? Eating and drinking restrictions Follow instructions from your health care provider about eating and drinking, which may include: A few days before the procedure follow a low-fiber diet. Avoid nuts, seeds, dried fruit, raw fruits, and vegetables. 1 3 days before the procedure follow a clear liquid diet. Drink only clear liquids, such as clear broth or bouillon, black coffee or tea, clear juice, clear soft drinks or sports drinks, gelatin dessert, and popsicles. Avoid any liquids that contain red or purple dye. On the day of the procedure do not eat or drink anything starting 2 hours before the procedure, or within the time period that your health care provider recommends. Up to 2 hours before the procedure, you may continue to drink clear liquids, such as water or clear fruit juice. Bowel prep If you were prescribed an oral bowel prep to clean out your colon: Take it as told by your health care provider. Starting the day before your procedure, you will needto drink a large amount of medicated liquid. The liquid will cause you to have multiple loose stools until your stool is almost clear or light green. If your skin or anus gets irritated from diarrhea, you may use these to relieve the irritation: ?Medicated wipes, such as adult wet wipes with aloe and vitamin E. ?A skin-soothing product like petroleum jelly. If you vomit while drinking the bowel prep, take a break for up to 60 minutes and then begin the bowel prep again. If vomiting continues and you cannot take the bowel prep without vomiting, call yourhealth care provider. To clean out your colon, you may also be given: ?Laxative medicines. ?Instructions about how to use an enema. General instructions Ask your health care provider about: ?Changing or stopping your regular medicines or supplements. This is especially important if you are taking iron supplements, diabetes medicines, or blood thinners. ?Taking medicines such as aspirin and ibuprofen. These medicines can thin your blood. Do not take these medicines before the procedure if your health care provider tells you not to. Plan to have someone take you home from the hospital or clinic. What happens during the procedure? An IV may be inserted into one of your veins. You will be given medicine to help you relax (sedative). To reduce your risk of infection: ?Your health care team will wash or sanitize their hands. ?Your anal area will be washed with soap. You will be asked to lie on your side with your knees bent. Your health care provider will lubricate a long, thin, flexible tube. The tube will have a camera and a light on the end. The tube will be inserted into your anus. The tube will be gently eased through your rectum and colon. Air will be delivered into your colon to keep it open. You may feel some pressure or cramping. The camera will be used to take images during the procedure. A small tissue sample may be removed to be examined under a microscope (biopsy). If small polyps are found, your health care provider may remove them and have them checked for cancer cells. When the exam is done, the tube will be removed. The procedure may vary among health care providers and hospitals. What happens after the procedure? Your blood pressure, heart rate, breathing rate, and blood oxygen level will be monitored until themedicines you were given have worn off. Do not drive for 24 hours after the exam. You may have a small amount of blood in your stool. You may pass gas and have mild abdominal cramping or bloating due to the air that was used to inflate your colon during the exam. It is up to you to get the results of your procedure. Ask your health care provider, or the department performing the procedure, when your results will be ready. Summary A colonoscopy is an exam to look at the entire large intestine. During a colonoscopy, a lubricated, flexible tube with a camera on the end of it is inserted into the anus and then passed into the colon and other parts of the large intestine. Follow instructions from your health care provider about eating and drinking before the procedure. If you were prescribed an oral bowel prep to clean out your colon, take it as told by your health care provider. After your procedure, your blood pressure, heart rate, breathing rate, and blood oxygen level will be monitored until the medicines you were given have worn off. This information is not intended to replace advice given to you by your health care provider. Make sure you discuss any questions you have with your health care provider. Document Released: 04/14/2001 Document Revised: 02/07/2018 Document Reviewed: 06/28/2016 [employer] Patient Education [employer]. Follow Up Care 01/18/2022 09:04:58 With:Irma Arthur CNP Address: When:1 to 2 weeks Comments:Following colonoscopy. [facility] Evaluation + Plan note Future Appointments Appointment Date:09/07/2021 04:40:00 PM Scheduled Provider:Lillie Edgar MD Location:[facility]: [facility] Future Appointments Appointment Date:03/11/2022 08:20:00 AM Scheduled Provider: Location:[facility] Appointment Type:Surgery FT [facility] Evaluation + Plan note Future Appointments Appointment Date:05/27/2022 05:00:00 PM Scheduled Provider: Location:.[facility] Appointment Type:US Duplex Procedures () Appointment Date:07/22/2022 03:40:00 PM Scheduled Provider:Lillie Edgar MD Location:[facility] Appointment Type: Open Future Scheduled Tests Radiology* US Extremity Non-Vascular Limited Left 05/27/22 [facility] evaluation + Plan note Future Appointments Appointment Date:07/22/2022 03:40:00 PM Scheduled Provider:Lillie Edgar MD Location:[facility] Appointment Type: Open Future Scheduled Tests Radiology* MRI Shoulder w/o Contrast Left [facility] Future Appointments Appointment Date:01/19/2023 03:40:00 PM Scheduled Provider:Lillie Edgar MD Location:[facility] Appointment Type: Open Future Scheduled Tests Laboratory* HgbA1c 07/22/22 Radiology* MRI Shoulder w/o Contrast Left 05/27/22 [facility] evaluation + Plan note Future Appointments Appointment Date:01/19/2023 03:40:00 PM Scheduled Provider:Lillie Edgar MD Location:[facility] Appointment Type: Open Future Scheduled Tests Radiology* MRI Shoulder w/o Contrast Left 05/27/22 [facility] Future Appointments Appointment Date:04/18/2023 11:00:00 AM Scheduled Provider:Lillie Edgar MD Location:[facility] Appointment Type:FM Open Future Scheduled Tests Laboratory* U Protein/Creat Ratio 01/19/23 * Microalbumin Level Urine 01/19/23 Radiology* MRI Shoulder w/o Contrast Left 05/27/22 [facility] Evaluation + Plan note Future Appointments Appointment Date:05/18/2023 08:40:00 AM Scheduled Provider:Lillie Edgar MD Location:[facility] Appointment Type:FM Open Future Scheduled Tests Laboratory* U Protein/Creat Ratio 01/19/23 * U Protein/Creat Ratio 04/18/23 * Microalbumin Level Urine 01/19/23 * Microalbumin Level Urine 04/18/23 Radiology* MRI Shoulder w/o Contrast Left 05/27/22 [facility] Hospital course Narrative No data available for this section [facility] No data available for this section [facility] No data available for this section [facility] Summary Purpose Family History No Family History Records FoundNo Family History Records FoundNo Family History Records FoundNo Family History Records Found No data available for this section No data available for this section No Family History Records FoundNo Family History Records Found Advance Directives No Advanced Directives Records FoundNo Advanced Directives Records FoundNo Advanced Directives Records FoundNo Advanced Directives Records FoundNo Advanced Directives Records FoundNo Advanced Directives Records Found Additional Source Comments (unrecognized sect ion and content) No Status Records FoundNo Status Records FoundNo Status Records FoundNo Status Records FoundNo Status Records FoundNo Status Records Found INFORMATION SOURCE (unrecogn ized section and content) DATE CREATED AUTHOR 10/25/2017 [facility] DATE CREATED AUTHOR AUTHOR'S ORGANIZ ATION 10/16/2021 [facility] DATE CREATED AUTHOR AUTHOR'S ORGANIZ ATION 07/03/2022 [facility] DATE CREATED AUTHOR AUTHOR'S ORGANIZ ATION 07/06/2022 [facility] DATE CREATED AUTHOR AUTHOR'S ORGANIZ ATION 04/19/2023 [facility] DATE CREATED AUTHOR AUTHOR'S ORGANIZ ATION 05/08/2023 [facility] Care Team (unrecognized sect ion and content) Personnel Name: Jeanine WAYEN MD Address: [address] [place] [address]. [address] [place] [address] Personnel Name: Jeanine WAYNE MD Address: Address: [address] [place] [address] [address] Personnel Name: Jeanine WAYNE MD Address: Address: [address] [place] [address] Personnel Name: Jeanine WAYNE MD Address: Address: [address] [place] [address] [place] [address] Personnel Name: Jeanine WAYNE MD Address: Address: [address] [place] [address] [place] [address] Personnel Name: Jeanine WAYNE MD Address: Address: [address] [place] [address] Personnel Name: Jeanine WAYNE MD Address: Address: [address] [place] [address] [place] [address] Personnel Name: Jeanine WAYNE MD Address: Address: [address] Personnel Name: Jeanine WAYNE MD Address: Address: [address] [place] [address] Personnel Name: Jeanine WAYNE MD Address: Address: [address] [place] [address] Personnel Name: Jeanine WAYNE MD Address: Address: [address] [place] [address] Personnel Name: Jeanine WAYNE MD Address: Address: [address] [place] [address] FOR RECORDS PERTAINING TO PATIENTS WHO ARE OR HAVE BEEN ENROLLED IN A CHEMICAL DEPENDENCY/SUBSTANCEABUSE PROGRAM, SOME INFORMATION MAY BE OMITTED. This clinical summary was aggregated from multiple sources. Caution should be exercised in using it in the provision of clinical care. This summary normalizes information from multiple sources, and as a consequence, information in this document may materially change the coding, format and clinical context of patient data. In addition, data may be omitted in some cases. CLINICAL DECISIONS SHOULD BE BASED ON THE PRIMARY CLINICAL RECORDS. [facility] [email or web address] provides no warranty or guarantee of the accuracy or completeness of information in this document.
[2023-05-15 09:34] LABS: Anion Gap 9.5; BUN Creatinine Ratio 11.5; Calcium 9.6 mg/dL (8.5-10.1); Carbon Dioxide 30.2 mmol/L (21.0-32.0); Chloride 101 mmol/L (98-107); Estimated GFR (African America >60 (>=60); Estimated GFR (Non-African Ame >60 (>=60); Glucose 205 mg/dL (74-106); Potassium 4.7 mmol/L (3.5-5.1); Sodium 136 mmol/L (136-145)
== END 2023-05-15 08:33 | disposition home or self-care (01) ==
PROVIDERS: PCP Family Medicine; Visit Provider Nurse Practitioner
DX: R06.09 Other forms of dyspnea (principal); R60.0 Localized edema
CPT/HCPCS: 36415; 80048

== ENCOUNTER 2023-05-23 09:47 | Outpatient (OUT) | payer BC, SELFPAY ==
--- NOTE | 2023-05-23 10:47 | CA_ITS ---
Patient Name: CHERELLE LANCASTER MR#: [id number] : 1960 Exam Date: 05/23/2023 Ordering Doctor: JOSE ALFREDO ARORA ECHOCARDIOGRAM REPORT PROCEDURE: CA ECHO DOPPLER COMPLETE INDICATIONS: OJEDA, LE edema COMPARISON: None. DESCRIPTION: COMPLETE ECHOCARDIOGRAM Real-time transthoracic echocardiography with 2D, M-mode, spectral and color flow Doppler performed. QUALITY: Technical quality was good. LEFT VENTRICLE: Normal chamber size. Borderline left ventricular hypertrophy. LV EF: Global left ventricular systolic function is low normal limits; visually estimated ejection fraction is 50 to 55%. No obvious wall motion abnormalities. DIASTOLIC: Unable to determine diastolic function. ATRIAL SEPTUM: Inadequately seen. LEFT ATRIUM: Normal chamber size. RIGHT ATRIUM: Normal chamber size. RIGHT VENTRICLE: Normal chamber size. Normal right ventricular systolic function. TRICUSPID VALVE: Normal mobility and thickness. No stenosis with trivial regurgitation. Unable to assess right-sided pressures due to lack of measurable tricuspid regurgitation. MITRAL VALVE: Normal mobility and thickness. No evidence of mitral valve stenosis. Mild mitral annular calcification. Trivial mitral regurgitation. AORTIC VALVE: Normal trileaflet appearance. Mildly calcified aortic valve. Normal leaflet mobility. No evidence of aortic valve stenosis. No aortic regurgitation. AORTIC ROOT: Normal diameter and appearance. PULMONIC VALVE: Normal thickness and mobility. No stenosis. No regurgitation. PERICARDIUM: Anterior free space; trivial effusion versus fat pad. IVC: Collapses with inspirations. Normal size. CONCLUSION: 1. Global left ventricular systolic function is low normal limits; visually estimated ejection fraction is 50 to 55% 2. Borderline left ventricular hypertrophy 3. The right ventricle is normal in size and systolic function 4. No significant valvular abnormalities 5. Anterior free space; trivial effusion versus fat pad Adult Echocardiography Procedure Report Left Ventricle LVEDD (3.7 - 5.6 cm): 4.06 cm LVESD (2.2 - 4.0 cm): 3.20 cm LVIVS thickness (0.6 - 1.2 cm): 1.05 cm LVPW thickness (0.5 - 1.0 cm): 1.13 cm e': 0.06 m/s E - e': 7.52 LVOT Max Gradient: 3.66 mm[Hg], 3.88 mm[Hg] LVOT Area (cm2): 0.97 m/s Peak Velocity (LVOT): 0.96 m/s, 0.98 m/s Mean Velocity (LVOT): 0.63 m/s LVOT Diameter 1.92 cm Left Ventricular Ejection Fraction: 49.08 % Left Atrium LA Volume Index (2D A2C): 24.11 ml/m2 Left Atrium Systolic Dimension: 2.86 cm Mitral Valve MV E to A Ratio: 0.65, 0.52 Mitral Valve A-Wave Peak Velocity: 0.79 m/s Mitral Valve E-Wave Peak Velocity: 0.46 m/s Right Ventricle RV Internal Diastolic Dimension: 2.96 cm Aorta AO Root Diam: 3.09 cm Ascending Ao Diam: 2.78 cm Aortic Valve AoV Area (Peak Yang): 2.06 cm2, 2.03 cm2 AoV Area (VTI): 1.81 cm2, 1.70 cm2 Peak Velocity(Antegrade Flow): 1.37 m/s Peak Gradient(Antegrade Flow): 7.51 mm[Hg] Mean Velocity(Antegrade Flow): 0.97 m/s Mean Gradient(Antegrade Flow): 4.28 mm[Hg] Velocity Time Integral: 26.27 cm Tricuspid Valve Peak Velocity (Regurgitant Flow): 2.08 m/s, 2.14 m/s, 1.64 m/s Pulmonic Valve Mean Gradient: 2.16 mm[Hg], 2.29 mm[Hg], 2.13 mm[Hg] Mean Velocity: 0.69 m/s, 0.70 m/s, 0.68 m/s Peak Velocity: 1.05 m/s Peak Gradient: 4.45 mm[Hg], 4.45 mm[Hg], 4.45 mm[Hg] Right Atrium Right Atrium Systolic Pressure: 27.11 ml, 27.11 ml Dictated by: Maxnie Guzmán M.D. on 05/23/2023 at 12:23 Approved by: Maxine Guzmán M.D. on 05/23/2023 at 12:26
== END 2023-05-23 09:48 | disposition home or self-care (01) ==
LOC: CARD 09:48
PROVIDERS: PCP Family Medicine; Visit Provider Nurse Practitioner
DX: R06.09 Other forms of dyspnea (principal); R60.0 Localized edema
CPT/HCPCS: 93306